=== PATIENT | female | born 1945 | race Caucasian/White ===

== ENCOUNTER 2017-05-03 12:33 | Inpatient (IN) | payer MEDICARE, OTHER, SELFPAY ==
[2017-05-03 12:55] VITALS: BMI 43.9
[2017-05-03 12:57] VITALS: BMI 43.9
[2017-05-03 13:15] VITALS: BP 89/44; PULSE 93; RESP 18; TEMP 36.7; O2SAT 100
--- NOTE | 2017-05-03 14:18 | PCM.PN.HOSP ---
Subjective: Reason for consult: Medical management for nonhealing infected abdominal wall ulcer. History of present illness This is a 72-year-old female with history of incarcerated hernia with recurrent exploratory laparotomy and lysis of adhesion with ventral hernia repair resulting into nonhealing ulcer. Postoperative course was complicated with wound healing problems with seroma and wound infection. Wound culture of 04/07/2017 shows Proteus mirabilis. She has been residing in [facility] for last 30 days and was called for admission by Dr. Castellon for nonhealing wound. Patient further stated that she has been having low-grade temperature 99-101 Fahrenheit for last 3-4 days and was given 1 antibiotic on past Monday to which she is allergic to. Here, on the floor, she was seen by our wound nurse, Micaela and wound picture shows undermined deep subcutaneous ulcer with overhanging edge and tunnel and necrotic tissue. Her bowel movement is usually regular and she moves every day with sometimes diarrhea. Denies lower urinary tract symptoms. Vitals/I&O's: Vital Signs Temp Pulse Resp BP Pulse Ox 98.1 F 93 18 89/44 100 05/03/17 13:15 05/03/17 13:15 05/03/17 13:15 05/03/17 13:15 05/03/17 13:15 Oxygen Delivery Method Room Air Weight: 108.862 kg Body Mass Index (BMI) 43.9 General: Alert, Oriented x3, Cooperative HEENT: Atraumatic, PERRLA, EOMI, Normocephalic Neck: Supple, No JVD, Negative Carotid Bruits Lungs: No rhonchi, No wheeze, Diminished Cardiovascular: Regular rate, Regular Rhythm, Normal S1, Normal S2, No murmurs Abdomen: Bowel Sounds Present, Soft, Non Tender, Non-Distended Extremities: Capillary Refill Less than 3 Seconds, Edema Skin: Ulcer/ Wound - Deep subcutaneous wound with overhanging edge internal. Floor of the wound looks grayish picture with necrotic tissue. Musculoskeletal: Arthritic Changes, - - Uses walker for ambulation Neurological: Cranial nerves II-XII grossly intact, Neuro grossly intact Psych/Mental Status: Normal Affect, Appropriate Current Medications Acetaminophen (Tylenol) 325 mg PO Q4H PRN PRN Reason: PAIN Allopurinol (Zyloprim) 300 mg PO DAILY [facility] Atorvastatin Calcium (Lipitor) 10 mg PO QHS [facility] Calcium Carbonate (Tums) 200 mg PO Q6H PRN PRN Reason: INDIGESTION Chlorhexidine Gluconate (Peridex) 15 ml PO BID [facility] Docusate Sodium (Colace) 100 mg PO BID [facility] Enoxaparin Sodium (Lovenox) 40 mg SC DAILY@0600 [facility] Ferrous Sulfate (Ferrous Sulfate) 325 mg PO TIDCM [facility] Hydromorphone HCl (Dilaudid) 1 mg IV Q3H PRN PRN PRN Reason: SEVERE PAIN () Ertapenem 1 gm/ Sodium (Chloride) 60 mls @ 100 mls/hr IV Q24 [facility] Lactated Ringer's () 1,000 mls @ 60 mls/hr IV .[id number] [facility] Lisinopril (Zestril) 10 mg PO DAILY [facility] Metformin HCl (Glucophage) 500 mg PO BIDCM [facility] Mirtazapine (Remeron) 15 mg PO QHS [facility] Multivitamins/Minerals (Multivitamin With Minerals) 1 tablet PO DAILY [facility] Non-Formulary Medication (Calcium Carbonate/Vitamin D3 [Calcium 600-Vit D3 200 Tablet]) 1 each PO BID [facility] Non-Formulary Medication (Loperamide Hcl [Imodium A-D]) 2 mg PO Q8H PRN PRN Reason: Diarrhea Non-Formulary Medication (Ondansetron Hcl [Zofran]) 4 mg PO Q4H PRN PRN Reason: NAUSEA Non-Formulary Medication (Polyvinyl Alcohol [Artificial Tears]) 1 drop EACH EYE PRN PRN PRN Reason: Dry Eye Nutritional Formula (Manjit - [place] Flavor) 1 packet PO BIDCM [facility] Nutritional Formula (Lactose Free) (Glucerna Shake) 120 ml PO 4X/DAY [facility] Ondansetron HCl (Zofran) 4 mg IV Q6H PRN PRN PRN Reason: NAUSEA Oxycodone HCl (Oxyir) 10 mg PO Q4H PRN PRN PRN Reason: SEVERE PAIN () Pantoprazole Sodium (Protonix) 40 mg PO BID [facility] Promethazine HCl (Phenergan) 25 mg PO Q4H PRN PRN PRN Reason: NAUSEA/VOMITING Simethicone (Mylicon) 80 mg PO 4X/DAY PRN PRN Reason: Gas Assessment/Plan This is a 72-year-old female with history of incarcerated hernia with recurrent exploratory laparotomy and lysis of adhesion with ventral hernia repair resulting into nonhealing ulcer. Postoperative course was complicated with wound healing problems with seroma and wound infection. Wound culture of 04/07/2017 shows Proteus mirabilis. Patient further stated that she has been having low-grade temperature 99-101 Fahrenheit for last 3-4 days and was given 1 antibiotic on past Monday to which she is allergic to. Here, on the floor, she was seen by our wound nurse, Micaela and wound picture shows undermined deep subcutaneous ulcer with overhanging edge and tunnel and necrotic tissue. Her bowel movement is usually regular and she moves every day with sometimes diarrhea. Denies lower urinary tract symptoms. 1. Nonhealing deep subcutaneous wound over lower abdominal/pelvic wall: Patient is being admitted to the monitored bed. Patient had wound VAC today. Most rarely will be taken for surgery as per Dr. Castellon. Wound culture from 04/07/2017 shows Proteus mirabilis sensitive to levofloxacin and ertapenem but resistant to penicillin group of antibiotics. I think patient was treated with Levaquin in March 2017, therefore agree with the IV ertapenem as ordered by Dr. Castellon. ID consult for further opinion. Blood cultures ?2, UA with urine culture ordered. 2. 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 Accu-Chek before meals and at bedtime and cover with NovoLog sliding scale. On ferrous sulfate. Anemia workup ordered including reticulocyte panel, B12, folic acid and iron panel 2. Coronary artery disease, hypertension, dyslipidemia, GERD, diverticular disease, gout: Home medication reconciliation done. DVT prophylaxis: Lovenox 40 mg subcu daily and bilateral SCDs.
--- NOTE | 2017-05-03 14:41 | NURSING ---
wound photo: lower abdomen
--- NOTE | 2017-05-03 14:42 | PN_ITS ---
Subjective: Reason for consult: Medical management for nonhealing infected abdominal wall ulcer. History of present illness This is a 72-year-old female with history of incarcerated hernia with recurrent exploratory laparotomy and lysis of adhesion with ventral hernia repair resulting into nonhealing ulcer. Postoperative course was complicated with wound healing problems with seroma and wound infection. Wound culture of shows Proteus mirabilis. She has been residing in [facility] for last 30 days and was called for admission by Dr. Castellon for nonhealing wound. Patient further stated that she has been having low-grade temperature 99-101 Fahrenheit for last 3-4 days and was given 1 antibiotic on past Monday to which she is allergic to. Here, on the floor, she was seen by our wound nurse, Micaela and wound picture shows undermined deep subcutaneous ulcer with overhanging edge and tunnel and necrotic tissue. Her bowel movement is usually regular and she moves every day with sometimes diarrhea. Denies lower urinary tract symptoms. Vitals/I&O's: Vital Signs Temp Pulse Resp BP Pulse Ox 98.1 F 93 18 89/44 100 05/03/17 13:15 05/03/17 13:15 05/03/17 13:15 05/03/17 13:15 05/03/17 13:15 Oxygen Delivery Method Room Air Weight: 108.862 kg Body Mass Index (BMI) 43.9 General: Alert, Oriented x3, Cooperative HEENT: Atraumatic, PERRLA, EOMI, Normocephalic Neck: Supple, No JVD, Negative Carotid Bruits Lungs: No rhonchi, No wheeze, Diminished Cardiovascular: Regular rate, Regular Rhythm, Normal S1, Normal S2, No murmurs Abdomen: Bowel Sounds Present, Soft, Non Tender, Non-Distended Extremities: Capillary Refill Less than 3 Seconds, Edema Skin: Ulcer/ Wound - Deep subcutaneous wound with overhanging edge internal. Floor of the wound looks grayish picture with necrotic tissue. Musculoskeletal: Arthritic Changes, - - Uses walker for ambulation Neurological: Cranial nerves II-XII grossly intact, Neuro grossly intact Psych/Mental Status: Normal Affect, Appropriate Current Medications Acetaminophen (Tylenol) 325 mg PO Q4H PRN PRN Reason: PAIN Allopurinol (Zyloprim) 300 mg PO DAILY [facility] Atorvastatin Calcium (Lipitor) 10 mg PO QHS [facility] Calcium Carbonate (Tums) 200 mg PO Q6H PRN PRN Reason: INDIGESTION Chlorhexidine Gluconate (Peridex) 15 ml PO BID [facility] Docusate Sodium (Colace) 100 mg PO BID [facility] Enoxaparin Sodium (Lovenox) 40 mg SC DAILY@0600 [facility] Ferrous Sulfate (Ferrous Sulfate) 325 mg PO TIDCM [facility] Hydromorphone HCl (Dilaudid) 1 mg IV Q3H PRN PRN PRN Reason: SEVERE PAIN () Ertapenem 1 gm/ Sodium (Chloride) 60 mls @ 100 mls/hr IV Q24 [facility] Lactated Ringer's () 1,000 mls @ 60 mls/hr IV .[id number] [facility] Lisinopril (Zestril) 10 mg PO DAILY [facility] Metformin HCl (Glucophage) 500 mg PO BIDCM [facility] Mirtazapine (Remeron) 15 mg PO QHS [facility] Multivitamins/Minerals (Multivitamin With Minerals) 1 tablet PO DAILY [facility] Non-Formulary Medication (Calcium Carbonate/Vitamin D3 [Calcium 600-Vit D3 200 Tablet]) 1 each PO BID [facility] Non-Formulary Medication (Loperamide Hcl [Imodium A-D]) 2 mg PO Q8H PRN PRN Reason: Diarrhea Non-Formulary Medication (Ondansetron Hcl [Zofran]) 4 mg PO Q4H PRN PRN Reason: NAUSEA Non-Formulary Medication (Polyvinyl Alcohol [Artificial Tears]) 1 drop EACH EYE PRN PRN PRN Reason: Dry Eye Nutritional Formula (Manjit - [place] Flavor) 1 packet PO BIDCM [facility] Nutritional Formula (Lactose Free) (Glucerna Shake) 120 ml PO 4X/DAY [facility] Ondansetron HCl (Zofran) 4 mg IV Q6H PRN PRN PRN Reason: NAUSEA Oxycodone HCl (Oxyir) 10 mg PO Q4H PRN PRN PRN Reason: SEVERE PAIN () Pantoprazole Sodium (Protonix) 40 mg PO BID [facility] Promethazine HCl (Phenergan) 25 mg PO Q4H PRN PRN PRN Reason: NAUSEA/VOMITING Simethicone (Mylicon) 80 mg PO 4X/DAY PRN PRN Reason: Gas Assessment/Plan This is a 72-year-old female with history of incarcerated hernia with recurrent exploratory laparotomy and lysis of adhesion with ventral hernia repair resulting into nonhealing ulcer. Postoperative course was complicated with wound healing problems with seroma and wound infection. Wound culture of shows Proteus mirabilis. Patient further stated that she has been having low-grade temperature 99-101 Fahrenheit for last 3-4 days and was given 1 antibiotic on past Monday to which she is allergic to. Here, on the floor, she was seen by our wound nurse, Micaela and wound picture shows undermined deep subcutaneous ulcer with overhanging edge and tunnel and necrotic tissue. Her bowel movement is usually regular and she moves every day with sometimes diarrhea. Denies lower urinary tract symptoms. 1. Nonhealing deep subcutaneous wound over lower abdominal/pelvic wall: Patient is being admitted to the monitored bed. Patient had wound VAC today. Most rarely will be taken for surgery as per Dr. Castellon. Wound culture from 04/07 shows Proteus mirabilis sensitive to levofloxacin and ertapenem but resistant to penicillin group of antibiotics. I think patient was treated with Levaquin in March 2017, therefore agree with the IV ertapenem as ordered by Dr. Castellon. ID consult for further opinion. Blood cultures ?2, UA with urine culture ordered. 2. 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 Accu-Chek before meals and at bedtime and cover with NovoLog sliding scale. On ferrous sulfate. Anemia workup ordered including reticulocyte panel, B12, folic acid and iron panel 2. Coronary artery disease, hypertension, dyslipidemia, GERD, diverticular disease, gout: Home medication reconciliation done. DVT prophylaxis: Lovenox 40 mg subcu daily and bilateral SCDs.
--- NOTE | 2017-05-03 14:42 | NURSING ---
called and discussed patient with Dr Castellon. this nurse had not taken cultures prior to placing the wound VAC. Did discuss the odor and the appearance of the tissues. both this nurse and Dr Castellon agree that the VAC can be placed on hold until further debridement is completed. Received orders for Dakins solution moistened kerlix dressings BID and prn. BIMAL Abrams will obtain and send cultures when the Dakins solution comes un from pharmacy and the VAC dressing is then removed.
[2017-05-03 15:15] VITALS: BP 136/56; PULSE 85; RESP 18; TEMP 36.7; O2SAT 100
[2017-05-03] MEDS: Lactated Ringers 1,000 ML 60 ML IV (16:49)
[2017-05-03] MEDS: CLARIFY ORDER NOTE (16:50)
[2017-05-03 16:51] LABS: Absolute Lymphocyte Count 0.84 X10^3/ul (0.83-4.51); Absolute Neutrophil Count 3.8 X10^3/uL (2.0-7.7); Basophil# 0.01 X10^3/uL; Basophil% 0.2 % (0-1); Eosinophil# 0.34 X10^3/uL; Eosinophils% 6.1 % (0-5); Hematocrit 28.1 % (37-47); Hemoglobin 8.8 g/dl (12.0-15.0); Lymphocyte # 0.84 X10^3/ul (4.0); Lymphocyte % 15.2 % (19-41); Mean Corp Hgb Conc 31.3 g/gl (32-36); Mean Corpuscular Hgb 24.8 pg (27.0-32.0); Mean Corpuscular Volume 79.2 fL (81-99); Mean Platelet Vol. 11.2 fl (6.2-12.0); Neutrophil # 3.84 X10^3/uL (2.7-7.7); Neutrophil % 69.3 % (47-70); Platelet Count 251 K/mm3 (150-450); RBC Distribution Width CV 18.4 % (11.6-14.6); RBC Distribution Width SD 51.3 fl (35.1-43.9); Red Blood Count 3.55 M/mm3 (4.2-5.4); White Blood Count 5.5 K/mm3 (4.4-11.0)
[2017-05-03] MEDS: Ferrous Sulfate 325 MG Tablet PO (16:51)
[2017-05-03] MEDS: Calcium Carb/Vitamin D 1 TABLET Tablet PO (16:51)
[2017-05-03 16:53] LABS: POSITIVE COUNT NO; POSITIVE DIFFERENTIAL NO; POSITIVE MORPHOLOGY NO
[2017-05-03 17:08] LABS: ALB/GLOB Ratio 0.6 RATIO (0.9-2.4); AST(SGOT) 11 U/L (15-37); Alanine Aminotransfer ALT/SGPT 11 U/L (12-78); Albumin, Serum 2.3 g/dL (3.4-5.0); Alkaline Phosphatase 120 U/L (45-117); Anion Gap 8 (5-15); BUN 18 mg/dL (7-18); BUN/Creat Ratio 20.4 RATIO (10-20); Calcium,Total 8.6 mg/dL (8.5-10.1); Chloride 105 mmol/L (98-107); Creatinine, Serum 0.88 mg/dL (0.55-1.02); EST Glomerular Filtration Rate 67 mL/min (>60); Est Glom Filt Rate - Afr Amer 81 mL/min (>60); Estimated Creatinine Clearance 45.03 ml/min; Globulin 3.9 g/dL (2.2-4.2); Glucose 126 mg/dL (70-110); Potassium 4.2 mmol/L (3.5-5.1); Prealbumin 8.1 mg/dL (20.0-40.0); Protein, Total 6.2 g/dL (6.4-8.2); Sodium Level 138 mmol/L (136-145)
[2017-05-03 17:10] LABS: Bedside Glucose 129 mg/dL (70-110)
[2017-05-03 17:52] LABS: Erythrocyte Sedimentation Rate 90 mm/hr (0-30)
[2017-05-03 20:24] VITALS: BP 119/54; PULSE 96; RESP 16; TEMP 37.4; O2SAT 98
[2017-05-03] MEDS: oxyCODONE 5 MG Tablet 10 MG PO (20:26)
[2017-05-03] MEDS: Ondansetron 4 MG/2 ML Vial IV (20:26)
[2017-05-03 20:33] VITALS: PULSE 96; RESP 16; O2SAT 98
[2017-05-03] MEDS: Docusate Sodium 100 MG Capsule PO (20:44)
[2017-05-03] MEDS: Atorvastatin Calcium 10 MG Tablet PO (20:44)
[2017-05-03] MEDS: Pantoprazole Sodium 40 MG Tablet PO (20:45)
[2017-05-03] MEDS: Mirtazapine 15 MG Tablet PO (20:46)
[2017-05-03] MEDS: Chlorhexidine 480 ML 15 ML PO (20:49)
[2017-05-03] MEDS: Glucerna Shake 120 ML LIQUID PO (20:50)
[2017-05-03 22:31] LABS: Bedside Glucose 126 mg/dL (70-110)
[2017-05-04] VITALS (12 sets, daily range): BP systolic 105–129; BP diastolic 45–78; PULSE 74–101; RESP 16–24; TEMP 36.2–37.7; O2SAT 95–100
[2017-05-04] MEDS: oxyCODONE 5 MG Tablet 10 MG PO (02:40)
[2017-05-04 06:15] LABS: Immature Platelet Fraction 2.6 % (1.0-7.9); RET-HE 23.3 pg (30-35); Reticulocyte Count 1.01 % (0.5-1.5)
[2017-05-04] MEDS: Enoxaparin 40 MG/0.4 ML Syringe SC (06:34)
[2017-05-04 06:46] LABS: Bedside Glucose 101 mg/dL (70-110)
[2017-05-04 06:51] LABS: Cholesterol 62 mg/dL (200); Ferritin 92 ng/mL (8-252); High Density Lipoprotein 20 mg/dL; Iron 16 ug/dL (50-170); Iron Binding Capacity,Total 150 ug/dL (250-450); PERCENT IRON SATURATION 10.7 % (15.0-55.0); Triglycerides 128 mg/dL; Very Low Density Lipoprotein 26 mg/dL (5-40)
[2017-05-04 08:27] LABS: Hemoglobin A1c 5.7 % (4.2-6.3)
[2017-05-04] MEDS: Ondansetron ODT 4 MG Tablet PO (08:35)
[2017-05-04] MEDS: Ferrous Sulfate 325 MG Tablet PO ×3 (08:35→18:10)
[2017-05-04] MEDS: Allopurinol 300 MG Tablet PO (08:36)
[2017-05-04] MEDS: Calcium Carb/Vitamin D 1 TABLET Tablet PO ×2 (08:36→18:11)
[2017-05-04] MEDS: Multivitamins,Ther W-Minerals Tablet 1 TABLET PO (08:36)
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
--- NOTE | 2017-05-04 09:36 | CON.PCM_ITS ---
Reason for Consult: Chronic abdominal wound with concern of infection History of Present Illness: The patient is a 72 year old F [] This is a 72-year-old white female history of obesity, diabetes mellitus, abdominal hernia repair done roughly [address] Ramesh and more recently had further abdominal surgery with lysis of adhesions and removal of mesh in mid February of this year. Shortly after the more recent abdominal surgery she developed a nonhealing wound that has progressed. She is currently an extended care facility and was seen at the wound care center recently. Patient was placed on levofloxacin but was unable to tolerate the medication. She states low-grade fevers mainly in the evening. She was subsequently admitted because of the progression of her abdominal wound concern of infection of the abdominal wound and further management by general surgery and infectious diseases. Patient was placed on meropenem. She denies any cardiopulmonary distress no headaches or any focal neurological symptoms she is otherwise hemodynamically stable. Laboratory studies reviewed she does have significant anemia. Her renal function is intact and her blood sugars are well controlled. 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 ( Chronic) nonhealing infected ulcer abdominal wall L98.492 Allergies/Adverse Reactions: Allergies Cephalosporins Allergy (Verified 05/02/17 22:52) Other clotrimazole Allergy (Verified 05/02/17 22:55) Other metoclopramide [From Reglan] Allergy (Verified 05/02/17 22:52) Other Penicillins Allergy (Verified 05/02/17 22:51) Other prednisolone Allergy (Verified 05/02/17 22:54) Other promethazine [From Phenergan] Allergy (Verified 05/02/17 22:53) Other Tetracyclines Allergy (Verified 05/02/17 22:54) Other Home Medications: Ambulatory Orders Medication Instructions Recorded Acetaminophen [Tylenol] 650 mg PO Q4H PRN 04/17/17 Allopurinol [Zyloprim] 300 mg PO DAILY 04/17/17 Aspirin 81 mg PO DAILY 04/17/17 Atorvastatin Calcium 10 mg PO QHS 04/17/17 Calcium Carbonate [Tums] 200 mg PO Q6H PRN 04/17/17 Calcium Carbonate/Vitamin D3 1 each PO BID 10/09/17 [Calcium 600-Vit D3 200 Tablet] Chlorhexidine Gluconate [Peridex] 15 ml PO BID 04/17/17 Ferrous Sulfate 325 mg PO TIDCM 04/17/17 Hydrocodone/Acetaminophen [[place] 1 each PO Q6H PRN 04/17/17 5-325 Tablet] Ketoconazole [Nizoral] 1 applic TOPICAL BID 04/17/17 Lisinopril [Zestril] 10 mg PO DAILY 04/17/17 Loperamide HCl [Imodium A-D] 2 mg PO Q8H PRN 04/17/17 Mirtazapine [Remeron] 15 mg PO QHS 04/17/17 Multivitamins,Ther W-Minerals 1 tablet PO DAILY 04/17/17 [Multivitamin With Minerals] Ondansetron HCl [Zofran] 4 mg PO Q8H PRN 04/17/17 Polyvinyl Alcohol [Artificial 1 drop EACH EYE PRN PRN 04/17/17 Tears] SimETHICONE [Mylicon] 80 mg PO 4X/DAY PRN 04/17/17 Cetyl Alc/Stearyl Alc/Pg/Sls 1 applic TP BID 05/03/17 [Cetaphil Cream] Docusate Sodium [Colace] 100 mg PO BID 05/03/17 L.acidoph,Paracasei, B.lactis 1 each PO BID 05/03/17 [Probiotic] Metformin HCl [Glucophage] 500 mg PO BIDCM 05/03/17 Mupirocin [Bactroban] 1 applic TOPICAL TID 05/03/17 Omeprazole 20 mg PO DAILY 05/03/17 Sodium Chloride 1 gm PO 4X/DAY PRN PRN 05/03/17 Vital Signs Temp Pulse Resp BP Pulse Ox 98.9 F 101 16 113/45 98 05/04/17 02:20 05/04/17 02:41 05/04/17 02:20 05/04/17 02:20 05/04/17 02:20 Oxygen Delivery Method Room Air Weight: 108.862 kg Body Mass Index (BMI) 43.9 Laboratory Tests Past 24 Hrs 05/03/17 05/03/17 05/04/17 16:25 16:25 05:50 WBC 5.5 RBC 3.55 L Hgb 8.8 L Hct 28.1 L MCV 79.2 L MCH 24.8 L MCHC 31.3 L RDW 18.4 H RDW Differential 51.3 H Plt Count 251 MPV 11.2 Immature Gran % (Auto) 0.200 Neut % (Auto) 69.3 Lymph % (Auto) 15.2 L [place] % (Auto) 9.0 Eos % (Auto) 6.1 H Baso % (Auto) 0.2 Absolute Neuts (auto) 3.8 Absolute Lymphs (auto) 0.84 Total Counted Not Reportable Immature Plt Fraction ESR 90 H Retic Count Immature Retic Fraction Retic Hgb Equivalent Sodium 138 Potassium 4.2 Chloride 105 Carbon Dioxide 25.0 Anion Gap 8 BUN 18 Creatinine 0.88 Estim Creat Clear Calc 45.03 Est GFR (MDRD) Af Amer 81 Est GFR (MDRD) Non-Af 67 BUN/Creatinine Ratio 20.4 H Glucose 126 H Hemoglobin A1c Calcium 8.6 Iron 16 L TIBC 150 L Iron Saturation 10.7 L Ferritin 92 Total Bilirubin 0.40 AST 11 L ALT 11 L Alkaline Phosphatase 120 H C-React Prot Ext Range 94.40 H Total Protein 6.2 L Albumin 2.3 L Globulin 3.9 Albumin/Globulin Ratio 0.6 L Prealbumin 8.1 L Triglycerides 128 Cholesterol 62 LDL Cholesterol 16 VLDL Cholesterol 26 HDL Cholesterol 20 L Vitamin B12 Folate 17.40 05/04/17 05/04/17 05/04/17 05:50 05:50 05:50 WBC RBC Hgb Hct MCV MCH MCHC RDW RDW Differential Plt Count MPV Immature Gran % (Auto) Neut % (Auto) Lymph % (Auto) [place] % (Auto) Eos % (Auto) Baso % (Auto) Absolute Neuts (auto) Absolute Lymphs (auto) Total Counted Immature Plt Fraction 2.6 ESR Retic Count 1.01 Immature Retic Fraction 10.20 Retic Hgb Equivalent 23.3 L Sodium Potassium Chloride Carbon Dioxide Anion Gap BUN Creatinine Estim Creat Clear Calc Est GFR (MDRD) Af Amer Est GFR (MDRD) Non-Af BUN/Creatinine Ratio Glucose Hemoglobin A1c 5.7 Calcium Iron TIBC Iron Saturation Ferritin Total Bilirubin AST ALT Alkaline Phosphatase C-React Prot Ext Range Total Protein Albumin Globulin Albumin/Globulin Ratio Prealbumin Triglycerides Cholesterol LDL Cholesterol VLDL Cholesterol HDL Cholesterol Vitamin B12 Pending Folate - Other Studies Radiology: [] Other Studies: [] Route of nutrition/ use of supplements: [] Nutritional Intake: [] IV Site: [] [place] Catheter: [] Alert and oriented ?3 does not appear toxic. She is anxious but in no acute distress lungs are clear heart exam S1-S2 abdomen is obese but soft I did take down the dressing and the packing of the abdominal wound it is a large deep abdominal wound with some areas of necrotic tissue around 3:00 in the wound. Laboratory studies reviewed. - Assessment/Plan Antibiotics: [] Assessment/Plan: [] 72-year-old white female with history of obesity and abdominal hernia repair with recent surgery roughly 2 months ago complicated by wound dehiscence and a chronic nonhealing wound in the abdominal area with concern of bacterial superinfection. At this point we will continue meropenem and continue local wound care. Patient states to me that she may be going back to surgery tomorrow for debridement of the wound.
[2017-05-04] MEDS: Lactated Ringers 1,000 ML 60 ML IV (09:37)
--- NOTE | 2017-05-04 09:40 | PCM.PN.HOSP ---
<Natalia Chandler Phoebe - Last Filed: 05/04/17 09:40> Patient Problems: Active and Suspected Problems Cellulitis of abdominal wall (Acute) L03.311 Subjective: Patient is 72-year-old female who presented with abdominal wound since late February, has progressed in size/severity. She does have a history of type 2 diabetes mellitus, obesity, and a hernia repair with lysis of adhesions and mesh removal mid-February. She was recently placed in a snf secondary to her wound care and had a wound VAC on at that time. She complains of low-grade fevers since coming to the hospital, mainly in the evening. She denies any abdominal pain except with palpation to the left quadrants. She does have some nausea, no emesis. Denies any dizziness, shortness of breath, or chest pain. She has been seen by Dr. Castellon, who she states plans to perform surgery tomorrow and open up her wound possibly. The wound has been cultured on 05/03, results are pending. Infectious disease has been consulted. She is currently on meropenem. Complains of right lateral rib pain from injury. Vitals/I&O's: Vital Signs Temp Pulse Resp BP Pulse Ox 98.9 F 101 16 113/45 98 05/04/17 02:20 05/04/17 02:41 05/04/17 02:20 05/04/17 02:20 05/04/17 02:20 Oxygen Delivery Method Room Air Weight: 108.862 kg Body Mass Index (BMI) 43.9 Intake and Output for Last 24 Hours 05/02/17 05/03/17 05/04/17 23:59 23:59 23:59 Intake Total 475 1278 Output Total 350 Balance 475 928 General: Alert, Oriented x3, Cooperative, No apparent distress, - - tearful. HEENT: Atraumatic, Normocephalic Oral: No Gingival or Mucosal Lesions/ Ulcerations, Dry Mucosa Neck: Supple, No JVD, No Nodes, Trachea Midline Lungs: Clear to auscultation, Diminished Cardiovascular: Regular rate, Regular Rhythm, Normal S1, Normal S2 Abdomen: Bowel Sounds Present, Soft, Passing Flatus, Obese, Tender - Left quadrant by wound Extremities: No cyanosis, No edema, No Calf Tenderness Skin: No rashes, Ulcer/ Wound - Large mid lower abdominal wound with tunneling of proximal abdomen, packing removed, foul odor. No bleeding. Musculoskeletal: No Tenderness to Palpation of Joints or Extremities Lymphatic: No Cervical, Supraclavicular, or Inguinal Adenopathy Neurological: Cranial nerves II-XII grossly intact, Deep Tendon Reflexes 2+/4 and Symmetrical, Neuro grossly intact Psych/Mental Status: Anxious, - - Cooperative, pleasant, somewhat tearful Laboratory Results 05/03/17 16:25: WBC 5.5, RBC 3.55 L, Hgb 8.8 L, Hct 28.1 L, MCV 79.2 L, MCH 24.8 L, MCHC 31.3 L, RDW 18.4 H, RDW Differential 51.3 H, Plt Count 251, MPV 11.2, Immature Gran % (Auto) 0.200, Neut % (Auto) 69.3, Lymph % (Auto) 15.2 L, [place] % (Auto) 9.0, Eos % (Auto) 6.1 H, Baso % (Auto) 0.2, Absolute Neuts (auto) 3.8, Absolute Lymphs (auto) 0.84, Total Counted Not Reportable, ESR 90 H 05/03/17 16:25: Sodium 138, Potassium 4.2, Chloride 105, Carbon Dioxide 25.0, Anion Gap 8, BUN 18, Creatinine 0.88, Estim Creat Clear Calc 45.03, Est GFR (MDRD) Af Amer 81, Est GFR (MDRD) Non-Af 67, BUN/Creatinine Ratio 20.4 H, Glucose 126 H, Calcium 8.6, Total Bilirubin 0.40, AST 11 L, ALT 11 L, Alkaline Phosphatase 120 H, C-React Prot Ext Range 94.40 H, Total Protein 6.2 L, Albumin 2.3 L, Globulin 3.9, Albumin/Globulin Ratio 0.6 L, Prealbumin 8.1 L 05/03/17 17:03: POC Glucose 129 H 05/03/17 21:52: POC Glucose 126 H 05/04/17 05:50: Iron 16 L, TIBC 150 L, Iron Saturation 10.7 L, Ferritin 92, Triglycerides 128, Cholesterol 62, LDL Cholesterol 16, VLDL Cholesterol 26, HDL Cholesterol 20 L, Folate 17.40 05/04/17 05:50: Hemoglobin A1c 5.7 05/04/17 05:50: Vitamin B12 Pending 05/04/17 05:50: Immature Plt Fraction 2.6, Retic Count 1.01, Immature Retic Fraction 10.20, Retic Hgb Equivalent 23.3 L 05/04/17 06:37: POC Glucose 101 Current Medications Acetaminophen (Tylenol) 325 mg PO Q4H PRN PRN Reason: PAIN Allopurinol (Zyloprim) 300 mg PO DAILYCM [facility] Last Admin: 05/04/17 08:36 Dose: 300 mg Artificial Tears (Tears Naturale, Artificial Tears) 1 drop EACH EYE DAILY PRN Atorvastatin Calcium (Lipitor) 10 mg PO QHS [facility] Last Admin: 05/03/17 20:44 Dose: 10 mg Calcium/Vitamin D (Os-Jonathan 500mg + D) [facility] Last Admin: 05/04/17 08:36 Dose: 1 tablet Chlorhexidine Gluconate (Peridex) 15 ml PO BID [facility] Last Admin: 05/03/17 20:49 Dose: 15 ml Dextrose (D50w Syringe) 0 gm IV X1 PRN; Protocol PRN Reason: Hypoglycemia Docusate Sodium (Colace) 100 mg PO BID [facility] Last Admin: 05/03/17 20:44 Dose: 100 mg Enoxaparin Sodium (Lovenox) 40 mg SC DAILY@0600 [facility] Last Admin: 05/04/17 06:34 Dose: 40 mg Ferrous Sulfate (Ferrous Sulfate) 325 mg PO TIDCM [facility] Last Admin: 05/04/17 08:35 Dose: 325 mg Glucagon () 1 mg IM .X1 PRN PRN Reason: Hypoglycemia Hydromorphone HCl (Dilaudid) 1 mg IV Q3H PRN PRN PRN Reason: SEVERE PAIN (6-10/10) Lactated Ringer's () 1,000 mls @ 60 mls/hr IV .[id number] [facility] Last Admin: 05/04/17 09:37 Dose: 60 mls/hr Meropenem 500 mg/ Sodium (Chloride) 60 mls @ 100 mls/hr IV Q8 [facility] Insulin Aspart (Novolog Flexpen (Bkc)) 0 units SC ACHS [facility] PRN Reason: Protocol Last Admin: 05/04/17 06:39 Dose: Not Given Lisinopril (Zestril) 10 mg PO DAILY [facility] Loperamide HCl (Imodium) 2 mg PO Q8H PRN PRN Reason: Diarrhea Metformin [facility] (Glucophage) [facility] Last Admin: 05/04/17 08:35 Dose: 500 mg Mirtazapine (Remeron) 15 mg PO QHS [facility] Last Admin: 05/03/17 20:46 Dose: 15 mg Multivitamins/Minerals (Multivitamin With Minerals) 1 tablet [facility] Last Admin: 05/04/17 08:36 Dose: 1 tablet Nutritional Formula (Manjit - [place] Flavor) 1 packet PO [facility] Last Admin: 05/04/17 08:36 Dose: Not Given Nutritional Formula (Lactose Free) (Glucerna Shake) 120 ml PO 4X/DAY [facility] Last Admin: 05/03/17 20:50 Dose: 120 ml Ondansetron HCl (Zofran) 4 mg IV Q6H PRN PRN PRN Reason: NAUSEA Last Admin: 05/03/17 20:26 Dose: 4 mg Ondansetron HCl (Zofran Odt) 4 mg PO Q4H PRN PRN Reason: NAUSEA Last Admin: 05/04/17 08:35 Dose: 4 mg Oxycodone HCl (Oxyir) 10 mg PO Q4H PRN PRN PRN Reason: SEVERE PAIN (6-10/10) Last Admin: 05/04/17 02:40 Dose: 10 mg Pantoprazole Sodium (Protonix) 40 mg PO BID [facility] Last Admin: 05/03/17 20:45 Dose: 40 mg Simethicone (Mylicon) 80 mg PO 4X/DAY PRN PRN Reason: Gas Sodium Chloride () 5 - 30 ml IV UD PRN PRN Reason: SALINE FLUSH Sodium Hypochlorite (Dakins Solution 0.25% (1/2 Strength)) 1 applic TOPICAL BID [facility] PRN Reason: Protocol Last Admin: 05/03/17 16:52 Dose: 1 applicatio Assessment/Plan Active and Suspected Problems Cellulitis of abdominal wall (Acute) L03.311 Patient is 72-year-old female admitted with nonhealing abdominal wound s/p incarcerated hernia with exploratory laparotomy and lysis of adhesions with removal of mesh in mid February. Developed a seroma, subsequent wound infection, wound culture 04/07/17 showed Proteus mirabilis. 1. Nonhealing deep subcutaneous wound lower/mid abdominal/pelvic wall Wound VAC was removed secondary to no drainage. Likely will go to surgery on 05/[address] Castellon. Wound culture 04/07 showed Proteus mirabilis, being treated with ertapenem per Dr. Castellon. Has allergies to cephalosporins, penicillins, tetracyclines. ID has been consulted, await recommendations. It does not appear blood cultures were performed, these will be ordered. Albumin 2.3. CRP 94. Dilaudid and OxyIR for pain. Will order rib x-ray for trauma/pain. T high 99.4?F 05/03 evening. Tylenol for fevers/pain. On room air, vitals otherwise stable. Manjit for nutrition, consult nutrition/dietitian. 2. Type 2 diabetes mellitus A1c 5.7. On Glucophage and sliding scale NovoLog. Follow Accu-Cheks, adjust insulin as necessary. Will need good blood sugar control for wound healing. 3. Chronic iron deficiency anemia/anemia of chronic disease Stable. On ferrous sulfate, anemia workup ordered. Hemoglobin is 8.8. Patient is scheduled for surgery on 05/05, will repeat CBC in a.m. 4. CAD 5. Hypertension Controlled. Continue lisinopril. Normal renal function. 6. Dyslipidemia Continue statin as at home. 7. GERD 8. Diverticulosis No indication of diverticulitis at this time. 9. Gout 10. DVT prophylaxis Daniel, SCDs <Unruly Gómez E - Last Filed: 05/04/17 12:19> Vitals/I&O's: Vital Signs Temp Pulse Resp BP Pulse Ox 97.2 F 86 18 127/78 98 05/04/17 09:30 05/04/17 09:30 05/04/17 09:30 05/04/17 09:30 05/04/17 09:30 Oxygen Delivery Method Room Air Weight: 239 lb 15.994 oz Body Mass Index (BMI) 43.9 Intake and Output for Last 24 Hours 05/02/17 05/03/17 05/04/17 23:59 23:59 23:59 Intake Total 475 1278 Output Total 350 Balance 475 928 Lungs: No rhonchi, No wheeze, No rales Microbiology Past 72 Hours 05/03/17 17:15 Wound - Aerobic & Anaerobic Swabs Gram Stain - Final Laboratory Results 05/03/17 16:25: WBC 5.5, RBC 3.55 L, Hgb 8.8 L, Hct 28.1 L, MCV 79.2 L, MCH 24.8 L, MCHC 31.3 L, RDW 18.4 H, RDW Differential 51.3 H, Plt Count 251, MPV 11.2, Immature Gran % (Auto) 0.200, Neut % (Auto) 69.3, Lymph % (Auto) 15.2 L, [place] % (Auto) 9.0, Eos % (Auto) 6.1 H, Baso % (Auto) 0.2, Absolute Neuts (auto) 3.8, Absolute Lymphs (auto) 0.84, Total Counted Not Reportable, ESR 90 H 05/03/17 16:25: Sodium 138, Potassium 4.2, Chloride 105, Carbon Dioxide 25.0, Anion Gap 8, BUN 18, Creatinine 0.88, Estim Creat Clear Calc 45.03, Est GFR (MDRD) Af Amer 81, Est GFR (MDRD) Non-Af 67, BUN/Creatinine Ratio 20.4 H, Glucose 126 H, Calcium 8.6, Total Bilirubin 0.40, AST 11 L, ALT 11 L, Alkaline Phosphatase 120 H, C-React Prot Ext Range 94.40 H, Total Protein 6.2 L, Albumin 2.3 L, Globulin 3.9, Albumin/Globulin Ratio 0.6 L, Prealbumin 8.1 L 05/03/17 17:03: POC Glucose 129 H 05/03/17 21:52: POC Glucose 126 H 05/04/17 05:50: Iron 16 L, TIBC 150 L, Iron Saturation 10.7 L, Ferritin 92, Triglycerides 128, Cholesterol 62, LDL Cholesterol 16, VLDL Cholesterol 26, HDL Cholesterol 20 L, Folate 17.40 05/04/17 05:50: Hemoglobin A1c 5.7 05/04/17 05:50: Vitamin B12 Pending 05/04/17 05:50: Immature Plt Fraction 2.6, Retic Count 1.01, Immature Retic Fraction 10.20, Retic Hgb Equivalent 23.3 L 05/04/17 06:37: POC Glucose 101 05/04/17 11:28: POC Glucose 123 H 05/04/17 11:40: Blood Type Pending, Antibody Screen Pending, Crossmatch See Detail Current Medications Acetaminophen (Tylenol) 325 mg PO Q4H PRN PRN Reason: PAIN Allopurinol (Zyloprim) [facility] Last Admin: 05/04/17 08:36 Dose: 300 mg Artificial Tears (Tears Naturale, Artificial Tears) 1 drop EACH EYE DAILY PRN Atorvastatin Calcium (Lipitor) 10 mg PO QHS [facility] Last Admin: 05/03/17 20:44 Dose: 10 mg Calcium/Vitamin D (Os-Jonathan 500mg + D) 1 tablet [facility] Last Admin: 05/04/17 08:36 Dose: 1 tablet Chlorhexidine Gluconate (Peridex) 15 ml PO BID [facility] Last Admin: 05/03/17 20:49 Dose: 15 ml Dextrose (D50w Syringe) 0 gm IV X1 PRN; Protocol PRN Reason: Hypoglycemia Docusate Sodium (Colace) 100 mg PO BID [facility] Last Admin: 05/03/17 20:44 Dose: 100 mg Enoxaparin Sodium (Lovenox) 40 mg SC DAILY@0600 [facility] Last Admin: 05/04/17 06:34 Dose: 40 mg Ferrous Sulfate (Ferrous Sulfate) 325 mg PO TIDCM [facility] Last Admin: 05/04/17 08:35 Dose: 325 mg Glucagon () 1 mg IM .X1 PRN PRN Reason: Hypoglycemia Hydromorphone HCl (Dilaudid) 1 mg IV Q3H PRN PRN PRN Reason: SEVERE PAIN (6-10/10) Lactated Ringer's () 1,000 mls @ 60 mls/hr IV .[id number] [facility] Last Admin: 05/04/17 09:37 Dose: 60 mls/hr Meropenem 500 mg/ Sodium (Chloride) 60 mls @ 100 mls/hr IV Q8 [facility] Insulin Aspart (Novolog Flexpen (Bkc)) 0 units SC ACHS [facility] PRN Reason: Protocol Last Admin: 05/04/17 11:42 Dose: Not Given Lisinopril (Zestril) 10 mg PO DAILY [facility] Loperamide HCl (Imodium) 2 mg PO Q8H PRN PRN Reason: Diarrhea Metformin HCl (Glucophage) 500 [facility] Last Admin: 05/04/17 08:35 Dose: 500 mg Mirtazapine (Remeron) 15 mg PO QHS [facility] Last Admin: 05/03/17 20:46 Dose: 15 mg Multivitamins/Minerals (Multivitamin With Minerals) 1 tablet PO DAILYCM [facility] Last Admin: 05/04/17 08:36 Dose: 1 tablet Nutritional Formula (Manjit - [place] Flavor) 1 packet PO BIDCM [facility] Last Admin: 05/04/17 08:36 Dose: Not Given Nutritional Formula (Lactose Free) (Glucerna Shake) 120 ml PO 4X/DAY [facility] Last Admin: 05/03/17 20:50 Dose: 120 ml Ondansetron HCl (Zofran) 4 mg IV Q6H PRN PRN PRN Reason: NAUSEA Last Admin: 05/03/17 20:26 Dose: 4 mg Ondansetron HCl (Zofran Odt) 4 mg PO Q4H PRN PRN Reason: NAUSEA Last Admin: 05/04/17 08:35 Dose: 4 mg Oxycodone HCl (Oxyir) 10 mg PO Q4H PRN PRN PRN Reason: SEVERE PAIN (6-10/10) Last Admin: 05/04/17 02:40 Dose: 10 mg Pantoprazole Sodium (Protonix) 40 mg PO BID [facility] Last Admin: 05/03/17 20:45 Dose: 40 mg Simethicone (Mylicon) 80 mg PO 4X/DAY PRN PRN Reason: Gas Sodium Chloride () 5 - 30 ml IV UD PRN PRN Reason: SALINE FLUSH Sodium Hypochlorite (Dakins Solution 0.25% (1/2 Strength)) 1 applic TOPICAL BID [facility] PRN Reason: Protocol Last Admin: 05/04/17 09:30 Dose: 1 applicatio Assessment/Plan Hospitalist note: I am seeing this patient in conjunction with Natalia Chandler. I independently seen and examined the patient. Progress note above and laboratory data reviewed and I agree with above treatment plan. Patient seen and examined. She denies any significant complaints except mild abdominal wall wound pain which seemed to be under control with current pain medication regimen. Denies fever chills. Vital signs are stable. - Physical Exam General: Alert, Oriented x3, Cooperative, No apparent distress. HEENT: Atraumatic, PERRLA, EOMI. Neck: Supple, No JVD, Negative Carotid Bruits, Trachea Midline, Thyroid Normal. Lungs: Clear to auscultation, diminished breath sounds bilateral, otherwise clear, No rhonchi, No wheeze, No rales. Cardiovascular: Regular rate, Regular Rhythm, Normal S1, Normal S2, PMI Normal. Abdomen: Bowel Sounds Present, Soft, Non Tender, Non-Distended, No Hepato-splenomegaly, obese, abdominal wall wound dressed. Extremities: No clubbing, No cyanosis, No edema Skin: No rashes, No breakdown Neurological: Neuro grossly intact Vital Signs are stable. Assessment and plan: Patient with nonhealing deep subcutaneous tissue infected wound of the lower abdominal wall, wound culture showed Proteus mirabilis that was reported, she is on IV meropenem. Vital signs are stable. Plastic surgery is managing, Dr. Castellon planning for surgery tomorrow. Other chronic medical problems are stable as above and plan to continue current medications. .
--- NOTE | 2017-05-04 10:03 | PN_ITS ---
<Natalia Chandler Phoebe - Last Filed: 05/04/17 09:40> Patient Problems: Active and Suspected Problems Cellulitis of abdominal wall (Acute) L03.311 Subjective: Patient is 72-year-old female who presented with abdominal wound since late February, has progressed in size/severity. She does have a history of type 2 diabetes mellitus, obesity, and a hernia repair with lysis of adhesions and mesh removal mid-February. She was recently placed in a group home secondary to her wound care and had a wound VAC on at that time. She complains of low- grade fevers since coming to the hospital, mainly in the evening. She denies any abdominal pain except with palpation to the left quadrants. She does have some nausea, no emesis. Denies any dizziness, shortness of breath, or chest pain. She has been seen by Dr. Castellon, who she states plans to perform surgery tomorrow and open up her wound possibly. The wound has been cultured on 05/03, results are pending. Infectious disease has been consulted. She is currently on meropenem. Complains of right lateral rib pain from injury. Vitals/I&O's: Vital Signs Temp Pulse Resp BP Pulse Ox 98.9 F 101 16 113/45 98 05/04/17 02:20 05/04/17 02:41 05/04/17 02:20 05/04/17 02:20 05/04/17 02:20 Oxygen Delivery Method Room Air Weight: 108.862 kg Body Mass Index (BMI) 43.9 Intake and Output for Last 24 Hours 05/02/17 05/03/17 05/04/17 23:59 23:59 23:59 Intake Total 475 1278 Output Total 350 Balance 475 928 General: Alert, Oriented x3, Cooperative, No apparent distress, - - tearful. HEENT: Atraumatic, Normocephalic Oral: No Gingival or Mucosal Lesions/ Ulcerations, Dry Mucosa Neck: Supple, No JVD, No Nodes, Trachea Midline Lungs: Clear to auscultation, Diminished Cardiovascular: Regular rate, Regular Rhythm, Normal S1, Normal S2 Abdomen: Bowel Sounds Present, Soft, Passing Flatus, Obese, Tender - Left quadrant by wound Extremities: No cyanosis, No edema, No Calf Tenderness Skin: No rashes, Ulcer/ Wound - Large mid lower abdominal wound with tunneling of proximal abdomen, packing removed, foul odor. No bleeding. Musculoskeletal: No Tenderness to Palpation of Joints or Extremities Lymphatic: No Cervical, Supraclavicular, or Inguinal Adenopathy Neurological: Cranial nerves II-XII grossly intact, Deep Tendon Reflexes 2+/4 and Symmetrical, Neuro grossly intact Psych/Mental Status: Anxious, - - Cooperative, pleasant, somewhat tearful Laboratory Results 05/03/17 16:25: WBC 5.5, RBC 3.55 L, Hgb 8.8 L, Hct 28.1 L, MCV 79.2 L, MCH 24.8 L, MCHC 31.3 L, RDW 18.4 H, RDW Differential 51.3 H, Plt Count 251, MPV 11.2, Immature Gran % (Auto) 0.200, Neut % (Auto) 69.3, Lymph % (Auto) 15.2 L, Cedar % (Auto) 9.0, Eos % (Auto) 6.1 H, Baso % (Auto) 0.2, Absolute Neuts (auto) 3.8, Absolute Lymphs (auto) 0.84, Total Counted Not Reportable, ESR 90 H 05/03/17 16:25: Sodium 138, Potassium 4.2, Chloride 105, Carbon Dioxide 25.0, Anion Gap 8, BUN 18, Creatinine 0.88, Estim Creat Clear Calc 45.03, Est GFR ( MDRD) Af Amer 81, Est GFR (MDRD) Non-Af 67, BUN/Creatinine Ratio 20.4 H, Glucose 126 H, Calcium 8.6, Total Bilirubin 0.40, AST 11 L, ALT 11 L, Alkaline Phosphatase 120 H, C-React Prot Ext Range 94.40 H, Total Protein 6.2 L, Albumin 2.3 L, Globulin 3.9, Albumin/Globulin Ratio 0.6 L, Prealbumin 8.1 L 05/03/17 17:03: POC Glucose 129 H 05/03/17 21:52: POC Glucose 126 H 05/04/17 05:50: Iron 16 L, TIBC 150 L, Iron Saturation 10.7 L, Ferritin 92, Triglycerides 128, Cholesterol 62, LDL Cholesterol 16, VLDL Cholesterol 26, HDL Cholesterol 20 L, Folate 17.40 05/04/17 05:50: Hemoglobin A1c 5.7 05/04/17 05:50: Vitamin B12 Pending 05/04/17 05:50: Immature Plt Fraction 2.6, Retic Count 1.01, Immature Retic Fraction 10.20, Retic Hgb Equivalent 23.3 L 05/04/17 06:37: POC Glucose 101 Current Medications Acetaminophen (Tylenol) 325 mg PO Q4H PRN PRN Reason: PAIN Allopurinol (Zyloprim) 300 mg PO DAILYCM [facility] Last Admin: 05/04/17 08:36 Dose: 300 mg Artificial Tears (Tears Naturale, Artificial Tears) 1 drop EACH EYE DAILY PRN Atorvastatin Calcium (Lipitor) 10 mg PO QHS [facility] Last Admin: 05/03/17 20:44 Dose: 10 mg Calcium/Vitamin D (Os-Jonathan 500mg + D) [facility] Last Admin: 05/04/17 08:36 Dose: 1 tablet Chlorhexidine Gluconate (Peridex) 15 ml PO BID [facility] Last Admin: 05/03/17 20:49 Dose: 15 ml Dextrose (D50w Syringe) 0 gm IV X1 PRN; Protocol PRN Reason: Hypoglycemia Docusate Sodium (Colace) 100 mg PO BID [facility] Last Admin: 05/03/17 20:44 Dose: 100 mg Enoxaparin Sodium (Lovenox) 40 mg SC DAILY@0600 [facility] Last Admin: 05/04/17 06:34 Dose: 40 mg Ferrous Sulfate (Ferrous Sulfate) 325 mg PO TIDCM [facility] Last Admin: 05/04/17 08:35 Dose: 325 mg Glucagon () 1 mg IM .X1 PRN PRN Reason: Hypoglycemia Hydromorphone HCl (Dilaudid) 1 mg IV Q3H PRN PRN PRN Reason: SEVERE PAIN (6-10/10) Lactated Ringer's () 1,000 mls @ 60 mls/hr IV .[id number] [facility] Last Admin: 05/04/17 09:37 Dose: 60 mls/hr Meropenem 500 mg/ Sodium (Chloride) 60 mls @ 100 mls/hr IV Q8 [facility] Insulin Aspart (Novolog Flexpen (Bkc)) 0 units SC ACHS [facility] PRN Reason: Protocol Last Admin: 05/04/17 06:39 Dose: Not Given Lisinopril (Zestril) 10 mg PO DAILY [facility] Loperamide HCl (Imodium) 2 mg PO Q8H PRN PRN Reason: Diarrhea Metformin [facility] (Glucophage) [facility] Last Admin: 05/04/17 08:35 Dose: 500 mg Mirtazapine (Remeron) 15 mg PO QHS [facility] Last Admin: 05/03/17 20:46 Dose: 15 mg Multivitamins/Minerals (Multivitamin With Minerals) [facility] Last Admin: 05/04/17 08:36 Dose: 1 tablet Nutritional Formula (Manjit - [place] Flavor) 1 [facility] Last Admin: 05/04/17 08:36 Dose: Not Given Nutritional Formula (Lactose Free) (Glucerna Shake) 120 ml PO 4X/DAY [facility] Last Admin: 05/03/17 20:50 Dose: 120 ml Ondansetron HCl (Zofran) 4 mg IV Q6H PRN PRN PRN Reason: NAUSEA Last Admin: 05/03/17 20:26 Dose: 4 mg Ondansetron HCl (Zofran Odt) 4 mg PO Q4H PRN PRN Reason: NAUSEA Last Admin: 05/04/17 08:35 Dose: 4 mg Oxycodone HCl (Oxyir) 10 mg PO Q4H PRN PRN PRN Reason: SEVERE PAIN (6-10/10) Last Admin: 05/04/17 02:40 Dose: 10 mg Pantoprazole Sodium (Protonix) 40 mg PO BID [facility] Last Admin: 05/03/17 20:45 Dose: 40 mg Simethicone (Mylicon) 80 mg PO 4X/DAY PRN PRN Reason: Gas Sodium Chloride () 5 - 30 ml IV UD PRN PRN Reason: SALINE FLUSH Sodium Hypochlorite (Dakins Solution 0.25% (1/2 Strength)) 1 applic TOPICAL BID [facility] PRN Reason: Protocol Last Admin: 05/03/17 16:52 Dose: 1 applicatio Assessment/Plan Active and Suspected Problems Cellulitis of abdominal wall (Acute) L03.311 Patient is 72-year-old female admitted with nonhealing abdominal wound s/p incarcerated hernia with exploratory laparotomy and lysis of adhesions with removal of mesh in mid February. Developed a seroma, subsequent wound infection, wound culture 04/07/17 showed Proteus mirabilis. 1. Nonhealing deep subcutaneous wound lower/mid abdominal/pelvic wall Wound VAC was removed secondary to no drainage. Likely will go to surgery on per Dr. Castellon. Wound culture 04/07 showed Proteus mirabilis, being treated with ertapenem per Dr. Castellon. Has allergies to cephalosporins, penicillins, tetracyclines. ID has been consulted, await recommendations. It does not appear blood cultures were performed, these will be ordered. Albumin 2.3. CRP 94. Dilaudid and OxyIR for pain. Will order rib x-ray for trauma/pain. T high 99.4?F 05/03 evening. Tylenol for fevers/pain. On room air, vitals otherwise stable. Manjit for nutrition, consult nutrition/dietitian. 2. Type 2 diabetes mellitus A1c 5.7. On Glucophage and sliding scale NovoLog. Follow Accu-Cheks, adjust insulin as necessary. Will need good blood sugar control for wound healing. 3. Chronic iron deficiency anemia/anemia of chronic disease Stable. On ferrous sulfate, anemia workup ordered. Hemoglobin is 8.8. Patient is scheduled for surgery on 05/05, will repeat CBC in a.m. 4. CAD 5. Hypertension Controlled. Continue lisinopril. Normal renal function. 6. Dyslipidemia Continue statin as at home. 7. GERD 8. Diverticulosis No indication of diverticulitis at this time. 9. Gout 10. DVT prophylaxis Daniel, SCDs <Unruly Gómez E - Last Filed: 05/04/17 12:19> Vitals/I&O's: Vital Signs Temp Pulse Resp BP Pulse Ox 97.2 F 86 18 127/78 98 05/04/17 09:30 05/04/17 09:30 05/04/17 09:30 05/04/17 09:30 05/04/17 09:30 Oxygen Delivery Method Room Air Weight: 239 lb 15.994 oz Body Mass Index (BMI) 43.9 Intake and Output for Last 24 Hours 05/02/17 05/03/17 05/04/17 23:59 23:59 23:59 Intake Total 475 1278 Output Total 350 Balance 475 928 Lungs: No rhonchi, No wheeze, No rales Microbiology Past 72 Hours 05/03/17 17:15 Wound - Aerobic & Anaerobic Swabs Gram Stain - Final Laboratory Results 05/03/17 16:25: WBC 5.5, RBC 3.55 L, Hgb 8.8 L, Hct 28.1 L, MCV 79.2 L, MCH 24.8 L, MCHC 31.3 L, RDW 18.4 H, RDW Differential 51.3 H, Plt Count 251, MPV 11.2, Immature Gran % (Auto) 0.200, Neut % (Auto) 69.3, Lymph % (Auto) 15.2 L, Cedar % (Auto) 9.0, Eos % (Auto) 6.1 H, Baso % (Auto) 0.2, Absolute Neuts (auto) 3.8, Absolute Lymphs (auto) 0.84, Total Counted Not Reportable, ESR 90 H 05/03/17 16:25: Sodium 138, Potassium 4.2, Chloride 105, Carbon Dioxide 25.0, Anion Gap 8, BUN 18, Creatinine 0.88, Estim Creat Clear Calc 45.03, Est GFR ( MDRD) Af Amer 81, Est GFR (MDRD) Non-Af 67, BUN/Creatinine Ratio 20.4 H, Glucose 126 H, Calcium 8.6, Total Bilirubin 0.40, AST 11 L, ALT 11 L, Alkaline Phosphatase 120 H, C-React Prot Ext Range 94.40 H, Total Protein 6.2 L, Albumin 2.3 L, Globulin 3.9, Albumin/Globulin Ratio 0.6 L, Prealbumin 8.1 L 05/03/17 17:03: POC Glucose 129 H 05/03/17 21:52: POC Glucose 126 H 05/04/17 05:50: Iron 16 L, TIBC 150 L, Iron Saturation 10.7 L, Ferritin 92, Triglycerides 128, Cholesterol 62, LDL Cholesterol 16, VLDL Cholesterol 26, HDL Cholesterol 20 L, Folate 17.40 05/04/17 05:50: Hemoglobin A1c 5.7 05/04/17 05:50: Vitamin B12 Pending 05/04/17 05:50: Immature Plt Fraction 2.6, Retic Count 1.01, Immature Retic Fraction 10.20, Retic Hgb Equivalent 23.3 L 05/04/17 06:37: POC Glucose 101 05/04/17 11:28: POC Glucose 123 H 05/04/17 11:40: Blood Type Pending, Antibody Screen Pending, Crossmatch See Detail Current Medications Acetaminophen (Tylenol) 325 mg PO Q4H PRN PRN Reason: PAIN Allopurinol (Zyloprim) [facility] Last Admin: 05/04/17 08:36 Dose: 300 mg Artificial Tears (Tears Naturale, Artificial Tears) 1 drop EACH EYE DAILY PRN Atorvastatin Calcium (Lipitor) 10 mg PO QHS [facility] Last Admin: 05/03/17 20:44 Dose: 10 mg Calcium/Vitamin D (Os-Jonathan 500mg + D) [facility] Last Admin: 05/04/17 08:36 Dose: 1 tablet Chlorhexidine Gluconate (Peridex) 15 ml PO BID [facility] Last Admin: 05/03/17 20:49 Dose: 15 ml Dextrose (D50w Syringe) 0 gm IV X1 PRN; Protocol PRN Reason: Hypoglycemia Docusate Sodium (Colace) 100 mg PO BID [facility] Last Admin: 05/03/17 20:44 Dose: 100 mg Enoxaparin Sodium (Lovenox) 40 mg SC DAILY@0600 [facility] Last Admin: 05/04/17 06:34 Dose: 40 mg Ferrous Sulfate (Ferrous Sulfate) 325 mg PO TIDCM [facility] Last Admin: 05/04/17 08:35 Dose: 325 mg Glucagon () 1 mg IM .X1 PRN PRN Reason: Hypoglycemia Hydromorphone HCl (Dilaudid) 1 mg IV Q3H PRN PRN PRN Reason: SEVERE PAIN (6-10/10) Lactated Ringer's () 1,000 mls @ 60 mls/hr IV .[id number] [facility] Last Admin: 05/04/17 09:37 Dose: 60 mls/hr Meropenem 500 mg/ Sodium (Chloride) 60 mls @ 100 mls/hr IV Q8 [facility] Insulin Aspart (Novolog Flexpen (Bkc)) 0 units SC ACHS [facility] PRN Reason: Protocol Last Admin: 05/04/17 11:42 Dose: Not Given Lisinopril (Zestril) 10 mg PO DAILY [facility] Loperamide HCl (Imodium) 2 mg PO Q8H PRN PRN Reason: Diarrhea Metformin HCl (Glucophage) [facility] Last Admin: 05/04/17 08:35 Dose: 500 mg Mirtazapine (Remeron) 15 mg PO QHS [facility] Last Admin: 05/03/17 20:46 Dose: 15 mg Multivitamins/Minerals (Multivitamin With Minerals) 1 tablet PO DAILYCM [facility] Last Admin: 05/04/17 08:36 Dose: 1 tablet Nutritional Formula (Manjit - [place] Flavor) 1 packet PO BIDCM [facility] Last Admin: 05/04/17 08:36 Dose: Not Given Nutritional Formula (Lactose Free) (Glucerna Shake) 120 ml PO 4X/DAY [facility] Last Admin: 05/03/17 20:50 Dose: 120 ml Ondansetron HCl (Zofran) 4 mg IV Q6H PRN PRN PRN Reason: NAUSEA Last Admin: 05/03/17 20:26 Dose: 4 mg Ondansetron HCl (Zofran Odt) 4 mg PO Q4H PRN PRN Reason: NAUSEA Last Admin: 05/04/17 08:35 Dose: 4 mg Oxycodone HCl (Oxyir) 10 mg PO Q4H PRN PRN PRN Reason: SEVERE PAIN (6-10/10) Last Admin: 05/04/17 02:40 Dose: 10 mg Pantoprazole Sodium (Protonix) 40 mg PO BID [facility] Last Admin: 05/03/17 20:45 Dose: 40 mg Simethicone (Mylicon) 80 mg PO 4X/DAY PRN PRN Reason: Gas Sodium Chloride () 5 - 30 ml IV UD PRN PRN Reason: SALINE FLUSH Sodium Hypochlorite (Dakins Solution 0.25% (1/2 Strength)) 1 applic TOPICAL BID [facility] PRN Reason: Protocol Last Admin: 05/04/17 09:30 Dose: 1 applicatio Assessment/Plan Hospitalist note: I am seeing this patient in conjunction with Natalia Chandler. I independently seen and examined the patient. Progress note above and laboratory data reviewed and I agree with above treatment plan. Patient seen and examined. She denies any significant complaints except mild abdominal wall wound pain which seemed to be under control with current pain medication regimen. Denies fever chills. Vital signs are stable. - Physical Exam General: Alert, Oriented x3, Cooperative, No apparent distress. HEENT: Atraumatic, PERRLA, EOMI. Neck: Supple, No JVD, Negative Carotid Bruits, Trachea Midline, Thyroid Normal. Lungs: Clear to auscultation, diminished breath sounds bilateral, otherwise clear, No rhonchi, No wheeze, No rales. Cardiovascular: Regular rate, Regular Rhythm, Normal S1, Normal S2, PMI Normal. Abdomen: Bowel Sounds Present, Soft, Non Tender, Non-Distended, No Hepato- splenomegaly, obese, abdominal wall wound dressed. Extremities: No clubbing, No cyanosis, No edema Skin: No rashes, No breakdown Neurological: Neuro grossly intact Vital Signs are stable. Assessment and plan: Patient with nonhealing deep subcutaneous tissue infected wound of the lower abdominal wall, wound culture showed Proteus mirabilis that was reported, she is on IV meropenem. Vital signs are stable. Plastic surgery is managing, Dr. Castellon planning for surgery tomorrow. Other chronic medical problems are stable as above and plan to continue current medications. .
--- NOTE | 2017-05-04 10:05 | RAD_ITS ---
STUDY: X-RAY - UNILATERAL RIBS ( RIGHT ) REASON FOR EXAM: Female, 72 years old. Right rib pain TECHNIQUE: Four view(s) of the ribs. COMPARISON: None. FINDINGS: Normal visualized ribs without a demonstrated fracture. There are coarse interstitial markings in the right lung. There is no blunting of the right costophrenic angle. A right arm PICC is present with the tip in the expected location of the mid SVC. Sternotomy wires are present. RAD/Ribs Unil 2V No CXR IMPRESSION: No significant abnormalities are seen in the right ribs. Electronically Signed: Vaishali Palacios MD at 17:55 EDT Tel Direct: [phone], Service support ,
--- NOTE | 2017-05-04 10:36 | PN.SURG_ITS ---
Patient Problems: Active and Suspected Problems Cellulitis of abdominal wall (Acute) L03.311 Subjective: Patient complains of abdominal wound pain. She states she also bumped her right side and her ribs hurt. Tolerating wound care with Dakin's solution and gauze. - Physical Exam General: Alert, Oriented x3 HEENT: PERRLA, EOMI Neck: Supple Lungs: Clear to auscultation Cardiovascular: Regular rate, Regular Rhythm Abdomen: Soft, Non-Distended, Tender - in the large ulcer with fat necrosis inferiorly. Less odor after starting the Dakin's solution with gauze. Extremities: No clubbing, No cyanosis, Edema - mild edema in lower extremities. Skin: Ulcer/ Wound - inferior abdominal wall ulcer shows fat necrosis with induration. Less odor after starting Dakin's solution with gauze. Musculoskeletal: Tenderness - over the right ribs. No step off deformities noted., - Neurological: Cranial nerves II-XII grossly intact Psych/Mental Status: Normal Affect, Appropriate Vital Signs Temp Pulse Resp BP Pulse Ox 98.9 F 101 16 113/45 98 05/04/17 02:20 05/04/17 02:41 05/04/17 02:20 05/04/17 02:20 05/04/17 02:20 Oxygen Delivery Method Room Air Weight: 108.862 kg Body Mass Index (BMI) 43.9 Intake and Output for Last 24 Hours 05/02/17 05/03/17 05/04/17 23:59 23:59 23:59 Intake Total 475 1278 Output Total 350 Balance 475 928 Laboratory Tests Past 24 Hrs 05/03/17 05/03/17 05/04/17 16:25 16:25 05:50 WBC 5.5 RBC 3.55 L Hgb 8.8 L Hct 28.1 L MCV 79.2 L MCH 24.8 L MCHC 31.3 L RDW 18.4 H RDW Differential 51.3 H Plt Count 251 MPV 11.2 Immature Gran % (Auto) 0.200 Neut % (Auto) 69.3 Lymph % (Auto) 15.2 L [place] % (Auto) 9.0 Eos % (Auto) 6.1 H Baso % (Auto) 0.2 Absolute Neuts (auto) 3.8 Absolute Lymphs (auto) 0.84 Total Counted Not Reportable Immature Plt Fraction ESR 90 H Retic Count Immature Retic Fraction Retic Hgb Equivalent Sodium 138 Potassium 4.2 Chloride 105 Carbon Dioxide 25.0 Anion Gap 8 BUN 18 Creatinine 0.88 Estim Creat Clear Calc 45.03 Est GFR (MDRD) Af Amer 81 Est GFR (MDRD) Non-Af 67 BUN/Creatinine Ratio 20.4 H Glucose 126 H Hemoglobin A1c Calcium 8.6 Iron 16 L TIBC 150 L Iron Saturation 10.7 L Ferritin 92 Total Bilirubin 0.40 AST 11 L ALT 11 L Alkaline Phosphatase 120 H C-React Prot Ext Range 94.40 H Total Protein 6.2 L Albumin 2.3 L Globulin 3.9 Albumin/Globulin Ratio 0.6 L Prealbumin 8.1 L Triglycerides 128 Cholesterol 62 LDL Cholesterol 16 VLDL Cholesterol 26 HDL Cholesterol 20 L Vitamin B12 Folate 17.40 05/04/17 05/04/17 05/04/17 05:50 05:50 05:50 WBC RBC Hgb Hct MCV MCH MCHC RDW RDW Differential Plt Count MPV Immature Gran % (Auto) Neut % (Auto) Lymph % (Auto) [place] % (Auto) Eos % (Auto) Baso % (Auto) Absolute Neuts (auto) Absolute Lymphs (auto) Total Counted Immature Plt Fraction 2.6 ESR Retic Count 1.01 Immature Retic Fraction 10.20 Retic Hgb Equivalent 23.3 L Sodium Potassium Chloride Carbon Dioxide Anion Gap BUN Creatinine Estim Creat Clear Calc Est GFR (MDRD) Af Amer Est GFR (MDRD) Non-Af BUN/Creatinine Ratio Glucose Hemoglobin A1c 5.7 Calcium Iron TIBC Iron Saturation Ferritin Total Bilirubin AST ALT Alkaline Phosphatase C-React Prot Ext Range Total Protein Albumin Globulin Albumin/Globulin Ratio Prealbumin Triglycerides Cholesterol LDL Cholesterol VLDL Cholesterol HDL Cholesterol Vitamin B12 Pending Folate POC Glucose 05/04/17 05/03/17 05/03/17 06:37 21:52 17:03 POC Glucose 101 126 H 129 H Diagnostic Data Ribs X-Ray 05/04/17 10:05 IMPRESSION: No significant abnormalities are seen in the right ribs. Electronically Signed: Vaishali Palacios MD at 17:55 EDT Tel Direct: [phone], Service support , Abdomen/Pelvis CT 05/04/17 10:40 IMPRESSION: 1. Large abdominal wall defect probably representing a large soft tissue ulceration with a collection of gas but without definite abscess. 2. Hepatomegaly and splenomegaly. 3. Bilateral basilar airspace consolidation and/or atelectasis. 4. Sequela of coronary artery vascular disease. Electronically Signed: Dai Mac MD at 14:15 EDT , Service support , Assessment/Plan Active and Suspected Problems Cellulitis of abdominal wall (Acute) L03.311 1. Nonhealing infected abdominal wall ulcer. 2. Infected prosthetic mesh abdominal wall. 3. Cellulitis abdominal wall. 4. Proteus mirabilis infection. 5. Diabetes mellitus. 6. Anemia of chronic disease 7. Right rib pain. Antibiotics have been changed to Meropenem. The Invanz has been stopped. CT Abdomen and Pelvis showed no evidence of recurrent hernia. No evidence of intra-abdominal pathology. Rib xray showed no fracture. The ulcer looks a little better with the Dakin's solution dressing changes. Appreciate Hospitalist and Infectious Diseases input. The large ulcer with undermining abdominal wall will not heal with operative debridement. Will go to the OR tomorrow. Will leave the ulcer open and proceed with postop care with the VAC. Post discharge, the patient [facility]. Prealbumin is very low at 8.1. Continue nutritional supplementation with protein to help the healing process. Operative cultures will be done. A positive culture may necessitate antibiotic modification. Any exposed infected prosthetic mesh will be removed. Hgb is low at 8.8. In anticipation of surgery tomorrow, will transfuse PRBC to improve oxygenation and thus improve healing. Patient was informed of the risks and complications of the procedure including alternatives to surgery. These were discussed with her personally. She voiced understanding and wishes to proceed.
--- NOTE | 2017-05-04 10:40 | CT_ITS ---
STUDY: CT ABDOMEN AND PELVIS WITH CONTRAST REASON FOR EXAM: Female, 72 years old. Abdominal wall ulceration after herniorrhaphy. RADIATION DOSAGE (If Supplied By Facility): CTDIvol = ( 18.95 ) mGy, DLP = ( 1017.53 ) mGycm TECHNIQUE: Transaxial images were obtained from the dome of the diaphragm to the symphysis pubis with oral contrast. 100 ml of Isovue 300 contrast was administered. Sagittal and coronal images were reconstructed. Individualized dose optimization techniques were used for this CT. COMPARISON: Prior comparable comparison studies are not available for review at this time. FINDINGS: There is bilateral basilar dependent and subsegmental atelectasis. Visualized heart appears to be mildly enlarged. Patient has an intracardiac pacemaker. There are vascular calcifications of the coronary arteries. There is hepatomegaly with diffuse hepatic enlargement. Maximum cephalocaudal dimension of the liver is 19.7 cm. There is a mild dilatation of intrahepatic biliary ducts possibly related previous obstruction. There is non-visualization of the gallbladder, which may be secondary to either contraction or a prior cholecystectomy. There is mild splenomegaly. There are multiple calcified splenic granulomas. There is diffuse atrophy of the pancreas. Normal bilateral adrenal glands. Normal right kidney. Normal left kidney. Normal visualized stomach. There is no evidence for dilated bowel, ascites or pneumoperitoneum. Small bowel has a grossly normal appearance. There are multiple colonic diverticula consistent with diverticulosis. The appendix is visualized and appears normal. Abdominal aorta is tortuous with mild atherosclerotic calcification. Normal inferior vena cava. There is borderline retroperitoneal lymphadenopathy with enlarged nodes no greater than 10mm in the short axis diameter. There is a small amount of gas in the urinary bladder. Has the patient had recent catheterization? There is absence of the uterus consistent with a prior hysterectomy. There is a large deficit within the soft tissues of the left paramedian abdominal wall apparently related to large ulceration and/or previous surgery. The patient has had a sternotomy. There is multilevel thoracic spondylosis. There is multilevel degenerative arthropathy and degenerative disc disease of the lumbar spine. CT/Abdomen/Pelvis WITH Contrast IMPRESSION: 1. Large abdominal wall defect probably representing a large soft tissue ulceration with a collection of gas but without definite abscess. 2. Hepatomegaly and splenomegaly. 3. Bilateral basilar airspace consolidation and/or atelectasis. 4. Sequela of coronary artery vascular disease. Electronically Signed: Dai Mac MD at 14:15 EDT , Service support ,
[2017-05-04 11:51] LABS: Bedside Glucose 123 mg/dL (70-110)
[2017-05-04 12:47] LABS: Bacteria 0 SEEN /hpf (None Seen); Mucous, Urine 0 SEEN /hpf (<or=2+); Red Blood Cells-Urine 0 SEEN /hpf (0-5); Squamous Epithelial Cells - UA 0 SEEN /hpf (5-10); White Blood Cells 0 SEEN /hpf (0-5)
[2017-05-04 12:52] LABS: Color, Urine Yellow (Yellow); Glucose, Dipstick Normal (Normal); Ketone-Dipstick Negative (Negative); Leukocyte Esterase-Dipstick 25 /ul (Negative); Nitrite-Dipstick Negative (Negative); Occult Blood-Urine Negative /ul (Negative); Protein-Dipstick Negative (Negative); Specific Gravity, Urine 1.005 (1.002-1.030); Urine Bilirubin Dipstick Negative (Negative); Urine Clarity Clear (Clear); Urine Urobilinogen Normal (Normal)
--- NOTE | 2017-05-04 13:32 | CASEMGMT ---
Social Work Call back from [facility] with admissions stating that the pt has used 54 days. Claims that they do have a social work therapist on campus and they had a care conference two weeks ago to discuss the pt's options once she has reached her 100 days. Will continue to provide updated clinicals and communicate the anticipated discharge date. Plan: Return to [facility] at discharge. SANGEETHA OntiverosW
[2017-05-04] MEDS: Docusate Sodium 100 MG Capsule PO ×2 (14:12→21:29)
[2017-05-04] MEDS: Pantoprazole Sodium 40 MG Tablet PO ×2 (14:14→21:29)
[2017-05-04] MEDS: Chlorhexidine 480 ML 15 ML PO ×2 (14:14→21:29)
[2017-05-04] MEDS: Lisinopril 10 MG Tablet PO (14:15)
[2017-05-04] MEDS: Glucerna Shake 120 ML LIQUID PO ×3 (14:17→21:34)
[2017-05-04] MEDS: 0.9% NaCl Peripheral Flush Adult/Peds IV (14:19)
[2017-05-04] MEDS: Acetaminophen 325 MG Tablet PO (14:41)
[2017-05-04 17:10] LABS: Bedside Glucose 130 mg/dL (70-110)
[2017-05-04] MEDS: Atorvastatin Calcium 10 MG Tablet PO (21:29)
[2017-05-04] MEDS: Mirtazapine 15 MG Tablet PO (21:29)
[2017-05-04] MEDS: HYDROmorphone 1 MG/ML Syringe IV (23:27)
[2017-05-04 23:51] LABS: Bedside Glucose 128 mg/dL (70-110)
[2017-05-05] VITALS (14 sets, daily range): BP systolic 113–146; BP diastolic 44–78; PULSE 60–105; RESP 15–18; TEMP 35.1–36.9; O2SAT 96–100; BMI 43.9
--- NOTE | 2017-05-05 04:20 | EKG12_ITS ---
Test Reason : AM EKG Blood Pressure : / mmHG Vent. Rate : 098 BPM Atrial Rate : 098 BPM P-R Int : 198 ms QRS Dur : 078 ms QT Int : 350 ms P-R-T Axes : 035 -11 057 degrees QTc Int : 446 ms Normal sinus rhythm with sinus arrhythmia Normal ECG No previous ECGs available Confirmed by XAVIER ROSS ([id number]), associate editor ALPHONSE WHITFIELD ([id number]) on 05/18/2017 1:56:11 PM Referred By: CHIQUIS Confirmed By:XAVIER ROSS
[2017-05-05] MEDS: 0.9% NaCl Peripheral Flush Adult/Peds IV (06:00)
[2017-05-05] MEDS: Enoxaparin 40 MG/0.4 ML Syringe SC (06:00)
[2017-05-05] MEDS: Ondansetron 4 MG/2 ML Vial IV ×2 (06:00→16:29)
[2017-05-05 06:36] LABS: Bedside Glucose 134 mg/dL (70-110)
[2017-05-05 06:54] LABS: Absolute Lymphocyte Count 0.72 X10^3/ul (0.83-4.51); Absolute Neutrophil Count 3.6 X10^3/uL (2.0-7.7); Basophil# 0.01 X10^3/uL; Basophil% 0.2 % (0-1); Eosinophil# 0.28 X10^3/uL; Eosinophils% 5.6 % (0-5); Hematocrit 31.4 % (37-47); Hemoglobin 9.8 g/dl (12.0-15.0); Lymphocyte # 0.72 X10^3/ul (4.0); Lymphocyte % 14.3 % (19-41); Mean Corp Hgb Conc 31.2 g/gl (32-36); Mean Corpuscular Volume 80.1 fL (81-99); Mean Platelet Vol. 10.8 fl (6.2-12.0); Monocyte# 0.41 X10^3/uL; Monocyte% 8.2 % (0-10); Neutrophil # 3.56 X10^3/uL (2.7-7.7); Neutrophil % 70.7 % (47-70); POSITIVE COUNT NO; POSITIVE DIFFERENTIAL NO; POSITIVE MORPHOLOGY NO; Platelet Count 234 K/mm3 (150-450); RBC Distribution Width SD 51.1 fl (35.1-43.9); Red Blood Count 3.92 M/mm3 (4.2-5.4)
[2017-05-05 07:00] LABS: Anion Gap 10 (5-15); BUN 15 mg/dL (7-18); BUN/Creat Ratio 20.5 RATIO (10-20); Calcium,Total 8.3 mg/dL (8.5-10.1); Chloride 104 mmol/L (98-107); Creatinine, Serum 0.73 mg/dL (0.55-1.02); EST Glomerular Filtration Rate 83 mL/min (>60); Est Glom Filt Rate - Afr Amer 100 mL/min (>60); Estimated Creatinine Clearance 39.63 ml/min; Glucose 128 mg/dL (70-110); Sodium Level 140 mmol/L (136-145)
[2017-05-05 07:01] LABS: International Normalized Ratio 1.3; Prothrombin Time (Protime)PT. 15.6 SECONDS (11.7-14.9)
[2017-05-05 08:40] LABS: Vitamin B12 522 pg/mL (211-911)
--- NOTE | 2017-05-05 09:39 | PCM.PN.ID ---
Patient Problems: Active and Suspected Problems Cellulitis of abdominal wall (Acute) L03.311 Subjective: Patient is tolerating meropenem well. Overall clinically stable. Had a uneventful night no specific complaints. Objective: Alert and oriented ?3 does not appear toxic lungs are clear heart exam S1-S2 abdomen is obese but soft. Large abdominal wound. CT scan of the abdomen pelvis results reviewed CBC and chemistry profile reviewed along with the microbiological data - Physical Exam Vital Signs Temp Pulse Resp BP Pulse Ox 98.4 F 98 16 126/52 98 05/05/17 09:11 05/05/17 09:11 05/05/17 09:11 05/05/17 09:11 05/05/17 09:12 Oxygen Delivery Method Room Air Weight: 108.862 kg Body Mass Index (BMI) 43.9 Intake and Output for Last 24 Hours 05/03/17 05/04/17 05/05/17 23:59 23:59 23:59 Intake Total 475 3054 1200 Output Total 1150 Balance 475 1904 1200 Microbiology Past 72 Hours 05/03/17 17:15 Gram Stain - Final Wound - Aerobic & Anaerobic Swabs Wound Culture - Preliminary Gram negative gorge Beta hemolytic organism Laboratory Tests Past 24 Hrs 05/04/17 05/04/17 05/04/17 05:50 11:40 12:23 WBC RBC Hgb Hct MCV MCH MCHC RDW RDW Differential Plt Count MPV Immature Gran % (Auto) Neut % (Auto) Lymph % (Auto) Republic % (Auto) Eos % (Auto) Baso % (Auto) Absolute Neuts (auto) Absolute Lymphs (auto) Total Counted PT INR Sodium Potassium Chloride Carbon Dioxide Anion Gap BUN Creatinine Estim Creat Clear Calc Est GFR (MDRD) Af Amer Est GFR (MDRD) Non-Af BUN/Creatinine Ratio Glucose Calcium Vitamin B12 522 Urine Color Yellow Urine Clarity Clear Urine pH 7.0 Ur Specific [place] 1.005 Urine Protein Negative Urine Glucose (UA) Normal Urine Ketones Negative Urine Occult Blood Negative Urine Nitrite Negative Urine Bilirubin Negative Urine Urobilinogen Normal Ur Leukocyte Esterase 25 H Urine RBC 0 SEEN Urine WBC 0 SEEN Ur Squamous Epith Cells 0 SEEN Urine Bacteria 0 SEEN Urine Mucus 0 SEEN Blood Type O POSITIVE Antibody Screen NEGATIVE Crossmatch See Detail 05/05/17 05/05/17 05/05/17 06:30 06:30 06:30 WBC 5.0 RBC 3.92 L Hgb 9.8 L Hct 31.4 L MCV 80.1 L MCH 25.0 L MCHC 31.2 L RDW 18.0 H RDW Differential 51.1 H Plt Count 234 MPV 10.8 Immature Gran % (Auto) 1.000 H Neut % (Auto) 70.7 H Lymph % (Auto) 14.3 L Republic % (Auto) 8.2 Eos % (Auto) 5.6 H Baso % (Auto) 0.2 Absolute Neuts (auto) 3.6 Absolute Lymphs (auto) 0.72 L Total Counted Not Reportable PT 15.6 H INR 1.3 Sodium 140 Potassium 4.0 Chloride 104 Carbon Dioxide 26.0 Anion Gap 10 BUN 15 Creatinine 0.73 Estim Creat Clear Calc 39.63 Est GFR (MDRD) Af Amer 100 Est GFR (MDRD) Non-Af 83 BUN/Creatinine Ratio 20.5 H Glucose 128 H Calcium 8.3 L Vitamin B12 Urine Color Urine Clarity Urine pH Ur Specific [place] Urine Protein Urine Glucose (UA) Urine Ketones Urine Occult Blood Urine Nitrite Urine Bilirubin Urine Urobilinogen Ur Leukocyte Esterase Urine RBC Urine WBC Ur Squamous Epith Cells Urine Bacteria Urine Mucus Blood Type Antibody Screen Crossmatch POC Glucose 05/05/17 05/04/17 05/04/17 06:14 23:47 17:00 POC Glucose 134 H 128 H 130 H 05/04/17 11:28 POC Glucose 123 H Route of nutrition/ use of supplements: [] Nutritional Intake: [] IV Site: [] [place] Catheter: [] - Assessment/Plan Postop abdominal wound with concern of arterial superinfection. Plan to continue meropenem and continue local wound care.
--- NOTE | 2017-05-05 10:34 | NURSING ---
Report given to Angela perez in surgery at this time.
--- NOTE | 2017-05-05 10:39 | CHAPLAIN ---
Type of Pastoral Visit _x__ Initial Visit ___ Follow-up Visit ___ On-call Visit ___ General Patient Visit ___ Spiritual Assessment ___ Family Conference ___ Bereavement ___ Rapid Response ___ Code Blue ___ Other (describe below) Pastoral Care Referral From _x__ Patient ___ Family _x__ Nurse ___ Physician ___ Account Support Associate ___ Motor Installer ___ Other (describe below) Sacrament/Intervention _x__ Active listening ___ Anointing ___ Baptist ___ Bereavement ___ Communion _x__ Nelsy exploration ___ _x__ Life review _x__ Prayer ___ Reconciliation ___ Sacrament of Sick _x__ Supportive presence ___ Wedding ___ Other (describe below) Pastoral Comments patient requested that someone sit with her and also offer a prayer before she goes into surgery; family is on their way to hospital but may not arrive in time to see her prior to surgery; pt shares some anxiety about surgery;
--- NOTE | 2017-05-05 12:04 | PCA ---
pt off floor
--- NOTE | 2017-05-05 13:12 | PCA ---
pt off floor
--- NOTE | 2017-05-05 13:14 | DEB_PTH ---
PATIENT: ALPHONSO PHILLIP LOC: [facility] U#:[id number] AGE/SX: 72/F ROOM: NV323 RE05/03/[address]: Dr. Santos Sevilla MD : [id number] BED: 1 DIS: 05/09/2017 SPEC #: [id number] RECD: 05/05/17 15:17 STATUS: ANSLEY REMarii #: [id number] LACI: 05/05/17 13:[address]: Ceferino Castellon DEPT: SURGICAL PATHOLOGY RECD BY: Lev Guerrero ENTERED: 05/05/17 15:18 SP TYPE: HITESH TISS OTHR DR: MD Dr. Yon Nelson MD Dr. Prakash Chand, MD Dr. Phillip Teague, MD Tissues: Abdomen, NOS Procedures: Surgery Specimen Level III Comments: @ Ordering doctor for SUIII edited from to @ by GOLDOD at 05/05/171710 @ Submitting doctor edited from to @ by RGOOD at 05/05/171710 HEADER OPERATION: Abdominal wall with debridement PRE-OP DIAGNOSIS: Nonhealing infected abdominal wall ulcer, infected prosthetic mesh abdominal wall TISSUE SUBMITTED: Debrided abdominal wall MICROSCOPIC DIAGNOSIS Debrided tissue, abdominal wall: Skin with underlying adipose tissue with ulceration, granulation tissue reaction, fat necrosis, associated acute and chronic inflammation and foreign body giant cell reaction. SEA:litzy 05/09/17 MICROSCOPIC DESCRIPTION Slides are reviewed. GROSS DESCRIPTION Received in fixative is one container labeled with the patient's name and designated debrided abdominal wall. The specimen consists of multiple pieces of skin and underlying adipose tissue measuring in aggregate 37 x 24 x 9 cm. An extensive area of ulceration is noted. Group Cio sections are submitted in six cassettes. / Lanny 05/08/17 TC:2 CPT: 80773
--- NOTE | 2017-05-05 13:55 | PN_ITS ---
Patient Problems: Active and Suspected Problems Cellulitis of abdominal wall (Acute) L03.311 Subjective: Patient is a 72-year-old lady who presented with a nonhealing deep subcutaneous infected wound involving the lower abdomen. Consult was placed to Dr. Castellon plan is for patient undergo wound debridement on 05/05/2017 Objective: GENERAL: cooperative HEENT: Clear conjunctiva, NECK; supple, normal thyroid, CHEST: Diminished to auscultation bilaterally, HEART: Regular S1 S2, no audible murmurs ABDOMEN: soft, lower abdominal infected wound RECTAL: deferred EXTREMITIES: No cyanosis. DIE PRESSER: Awake, no lateralizing signs. SKIN: As described above Vitals/I&O's: Vital Signs Temp Pulse Resp BP Pulse Ox 98.4 F 98 16 126/52 98 05/05/17 09:11 05/05/17 09:11 05/05/17 09:11 05/05/17 09:11 05/05/17 09:12 Oxygen Delivery Method Room Air Weight: 108.862 kg Body Mass Index (BMI) 43.9 Intake and Output for Last 24 Hours 05/03/17 05/04/17 05/05/17 23:59 23:59 23:59 Intake Total 475 3054 1200 Output Total 1150 Balance 475 1904 1200 Microbiology Past 72 Hours 05/04/17 12:23 Urine, Clean Catch Urine Culture - Preliminary Culture exhibits no growth. 05/03/17 17:15 Wound - Aerobic & Anaerobic Swabs Gram Stain - Final 05/03/17 17:15 Wound - Aerobic & Anaerobic Swabs Wound Culture - Preliminary Proteus sp. Gram negative gorge Staphylococcus aureus Laboratory Results 05/04/17 05:50: Vitamin B12 522 05/04/17 11:40: Blood Type O POSITIVE, Antibody Screen NEGATIVE, Crossmatch See Detail 05/04/17 17:00: POC Glucose 130 H 05/04/17 23:47: POC Glucose 128 H 05/05/17 06:14: POC Glucose 134 H 05/05/17 06:30: WBC 5.0, RBC 3.92 L, Hgb 9.8 L, Hct 31.4 L, MCV 80.1 L, MCH 25.0 L, MCHC 31.2 L, RDW 18.0 H, RDW Differential 51.1 H, Plt Count 234, MPV 10.8, Immature Gran % (Auto) 1.000 H, Neut % (Auto) 70.7 H, Lymph % (Auto) 14.3 L, Hill % (Auto) 8.2, Eos % (Auto) 5.6 H, Baso % (Auto) 0.2, Absolute Neuts ( auto) 3.6, Absolute Lymphs (auto) 0.72 L, Total Counted Not Reportable 05/05/17 06:30: PT 15.6 H, INR 1.3 05/05/17 06:30: Sodium 140, Potassium 4.0, Chloride 104, Carbon Dioxide 26.0, Anion Gap 10, BUN 15, Creatinine 0.73, Estim Creat Clear Calc 39.63, Est GFR ( MDRD) Af Amer 100, Est GFR (MDRD) Non-Af 83, BUN/Creatinine Ratio 20.5 H, Glucose 128 H, Calcium 8.3 L Current Medications Acetaminophen (Tylenol) 325 mg PO Q4H PRN PRN Reason: PAIN Last Admin: 05/04/17 14:41 Dose: 325 mg [facility] ([facility]oprim) [facility] Last Admin: 05/05/17 10:20 Dose: Not Given Artificial Tears (Tears Naturale, Artificial Tears) 1 drop EACH EYE DAILY PRN Atorvastatin Calcium (Lipitor) 10 mg PO QHS [facility] Last Admin: 05/04/17 21:29 Dose: 10 mg Calcium/Vitamin D (Os-Jonathan 500mg + D) [facility] Last Admin: 05/05/17 10:19 Dose: Not Given Chlorhexidine Gluconate (Peridex) 15 ml PO BID [facility] Last Admin: 05/05/17 10:20 Dose: Not Given Dextrose (D50w Syringe) 0 gm IV X1 PRN; Protocol PRN Reason: Hypoglycemia Docusate Sodium (Colace) 100 mg PO BID [facility] Last Admin: 05/05/17 10:20 Dose: Not Given Enoxaparin Sodium (Lovenox) 40 mg SC DAILY@0600 [facility] Last Admin: 05/05/17 06:00 Dose: 40 mg Ferrous Sulfate (Ferrous Sulfate) 325 mg PO TIDCM [facility] Last Admin: 05/05/17 10:19 Dose: Not Given Glucagon () 1 mg IM .X1 PRN PRN Reason: Hypoglycemia Hydromorphone HCl (Dilaudid) 1 mg IV Q3H PRN PRN PRN Reason: SEVERE PAIN (6-10/10) Last Admin: 05/04/17 23:27 Dose: 1 mg Lactated Ringer's () 1,000 mls @ 60 mls/hr IV .[id number] [facility] Last Admin: 05/04/17 09:37 Dose: 60 mls/hr Meropenem 500 mg/ N/A 10 mls @ 200 mls/hr IV Q8 [facility] Insulin Aspart (Novolog Flexpen (Bkc)) 0 units SC ACHS [facility] PRN Reason: Protocol Last Admin: 05/05/17 07:35 Dose: Not Given Lisinopril (Zestril) 10 mg PO DAILY [facility] Last Admin: 05/05/17 10:21 Dose: Not Given Loperamide HCl (Imodium) 2 mg PO Q8H PRN PRN Reason: Diarrhea Metformin HCl (Glucophage) [facility] Last Admin: 05/05/17 10:19 Dose: Not Given Mirtazapine (Remeron) 15 mg PO QHS [facility] Last Admin: 05/04/17 21:29 Dose: 15 mg Multivitamins/Minerals (Multivitamin With Minerals) 1 tablet [facility] Last Admin: 05/05/17 10:19 Dose: Not Given Nutritional Formula (Manjit - [place] Flavor) 1 packet [facility] Last Admin: 05/05/17 10:19 Dose: Not Given Nutritional Formula (Lactose Free) (Glucerna Shake) 120 ml PO 4X/DAY [facility] Last Admin: 05/05/17 10:20 Dose: Not Given Ondansetron HCl (Zofran) 4 mg IV Q6H PRN PRN PRN Reason: NAUSEA Last Admin: 05/05/17 06:00 Dose: 4 mg Ondansetron HCl (Zofran Odt) 4 mg PO Q4H PRN PRN Reason: NAUSEA Last Admin: 05/04/17 08:35 Dose: 4 mg Oxycodone HCl (Oxyir) 10 mg PO Q4H PRN PRN PRN Reason: SEVERE PAIN (6-10/10) Last Admin: 05/04/17 02:40 Dose: 10 mg Pantoprazole Sodium (Protonix) 40 mg PO BID [facility] Last Admin: 05/05/17 10:20 Dose: Not Given Simethicone (Mylicon) 80 mg PO 4X/DAY PRN PRN Reason: Gas Sodium Chloride () 5 - 30 ml IV UD PRN PRN Reason: SALINE FLUSH Last Admin: 05/05/17 06:00 Dose: 10 ml Sodium Hypochlorite (Dakins Solution 0.25% (1/2 Strength)) 1 applic TOPICAL BID [facility] PRN Reason: Protocol Last Admin: 05/05/17 10:20 Dose: Not Given Assessment/Plan Active and Suspected Problems Cellulitis of abdominal wall (Acute) L03.311 Patient is a 72-year-old lady who presented with a nonhealing deep subcutaneous infected wound involving the lower abdomen. Consult was placed to Dr. Castellon plan is for patient undergo wound debridement on 05/05/2017 1. Nonhealing deep subcutaneous infected wound involving the anterior abdominal wall. Admitted to regular nursing floor cultures since grew Proteus. Dr. Castellon with plastic surgery on case with plans for patient undergo wound debridement on 05/05/2017 2. 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 Morbid obesity with BMI of 43.9 4. Hypertension-blood pressure controlled, home medications continued with dose adjustment as needed 5. Coronary artery disease per history 6. GERD 7. Dyslipidemia 8. Colonic diverticular disease 9. Gout 10. DVT prophylaxis Lovenox SC .
--- NOTE | 2017-05-05 14:48 | PCM.IMDPSTOP ---
Immediate Post-Op Note Date of Procedure: 05/05/17 Primary Surgeon/Physician: Ceferino Castellon latex foam worker: None Pre-Operative Diagnosis: 1. Nonhealing necrotizing infection ulcer abdominal wall. 2. Infected prosthetic mesh abdominal wall. 3. Cellulitis abdominal wall. 4. Proteus mirabilis infection. 5. Diabetes mellitus. 6. Anemia of chronic disease. Post-Operative Diagnosis: 1. Nonhealing necrotizing infection ulcer abdominal wall. 2. Infected prosthetic mesh abdominal wall. 3. Recurrent ventral hernia. 4. Cellulitis abdominal wall. 5. Proteus mirabilis infection. 6. Diabetes mellitus. 7. Anemia of chronic disease. Surgery/Procedure Performed:: 1. Surgical preparation abdominal wall with excisional debridement skin, subcutaneous tissue, muscle, and fascia for necrotizing soft tissue infection (962 cm2). 2. Removal of exposed infected mesh with fascial closure. 3. Repair of recurrent ventral hernia. Description of Surgical Findings:: 72 year old woman presents with a nonhealing infected abdominal wall ulcer. She initially had surgery on 02/22/17 for an incarcerated hernia with small bowel obstruction. She underwent exploratory laparotomy and lysis of adhesions and ventral hernia repair and a partial panniculectomy to aid in wound closure. It was noted in the operative report that dissection of the abdominal wall was done below the mesh. Patient states she has had hernia repairs in the past with mesh. There was no mention of the mesh being removed at that time. Postdischarge, she developed some wound healing problems mostly inferiorly at the level of the remaining panniculus. She had developed an infected seroma and wound care was instituted with the VAC. A wound culture was obtained on 04/07/17 that showed Proteus mirabilis. She was placed on antibiotics with Levaquin. She had trouble tolerating that antibiotic and was changed to Invanz. She has complaints of abdominal wall pain. She denies any fever. She is currently at an [facility]. Operative intervention was recommended. Today the patient underwent surgical preparation abdominal wall with excisional debridement skin, subcutaneous tissue, muscle, and fascia for necrotizing soft tissue infection (962 cm2) and removal of exposed infected mesh with fascial closure and repair of recurrent ventral hernia. Size of defect abdominal wall - 37 x 26 x 4 cm. Estimated Blood Loss: 250 ml. Specimen's removed: Necrotizing infection ulcer abdominal wall to Pathology and Microbiology. Drains: None. Type of Anesthesia:: General - Admit VTE Documentation VTE Present on Admission: No VTE Mechan Device Prophylaxis: SCD's VTE Pharm Prophylaxis ordered?: Yes
[2017-05-05] MEDS: Lactated Ringers 1,000 ML 60 ML IV (15:58)
[2017-05-05] MEDS: oxyCODONE 5 MG Tablet 10 MG PO (16:29)
[2017-05-05 16:51] LABS: Bedside Glucose 145 mg/dL (70-110)
[2017-05-05 18:07] LABS: Bedside Glucose 113 mg/dL (70-110)
--- NOTE | 2017-05-05 18:46 | NURSING ---
Pt. denies nausea at this time. Eating ice chips and tolerating well.
[2017-05-05] MEDS: HYDROmorphone 1 MG/ML Syringe IV (21:49)
[2017-05-05] MEDS: Glucerna Shake 120 ML LIQUID PO (21:51)
[2017-05-05] MEDS: Docusate Sodium 100 MG Capsule PO (21:51)
[2017-05-05] MEDS: Atorvastatin Calcium 10 MG Tablet PO (21:52)
[2017-05-05] MEDS: Pantoprazole Sodium 40 MG Tablet PO (21:53)
[2017-05-05] MEDS: Chlorhexidine 480 ML 15 ML PO (21:54)
[2017-05-05] MEDS: Mirtazapine 15 MG Tablet PO (21:54)
[2017-05-05] MEDS: BENZOCAINE/MENTHOL 1 LOZENGE 2 LOZENGE MUCOUS MEM (23:38)
[2017-05-06 00:06] LABS: Bedside Glucose 99 mg/dL (70-110)
[2017-05-06 04:17] VITALS: BP 116/57; PULSE 98; RESP 18; TEMP 36.7; O2SAT 96
[2017-05-06 05:46] LABS: Hematocrit 30.3 % (37-47); Hemoglobin 9.5 g/dl (12.0-15.0); Mean Corp Hgb Conc 31.4 g/gl (32-36); Mean Corpuscular Hgb 25.5 pg (27.0-32.0); Mean Corpuscular Volume 81.5 fL (81-99); Mean Platelet Vol. 10.5 fl (6.2-12.0); Platelet Count 230 K/mm3 (150-450); RBC Distribution Width CV 18.3 % (11.6-14.6); RBC Distribution Width SD 52.2 fl (35.1-43.9); Red Blood Count 3.72 M/mm3 (4.2-5.4); White Blood Count 5.9 K/mm3 (4.4-11.0)
[2017-05-06 05:49] LABS: Scan Indicated on CBC? Y/N NO
[2017-05-06 05:59] LABS: Anion Gap 7 (5-15); BUN 9 mg/dL (7-18); BUN/Creat Ratio 15.1 RATIO (10-20); Chloride 104 mmol/L (98-107); EST Glomerular Filtration Rate 105 mL/min (>60); Est Glom Filt Rate - Afr Amer 127 mL/min (>60); Estimated Creatinine Clearance 39.63 ml/min; Glucose 98 mg/dL (70-110); Sodium Level 141 mmol/L (136-145)
[2017-05-06] MEDS: Enoxaparin 40 MG/0.4 ML Syringe SC ×2 (06:34→16:34)
[2017-05-06] MEDS: Lactated Ringers 1,000 ML 60 ML IV ×2 (06:40→23:07)
[2017-05-06 06:46] LABS: Bedside Glucose 105 mg/dL (70-110)
[2017-05-06] MEDS: Docusate Sodium 100 MG Capsule PO ×2 (08:17→22:44)
[2017-05-06] MEDS: Multivitamins,Ther W-Minerals Tablet 1 TABLET PO (08:17)
[2017-05-06] MEDS: Calcium Carb/Vitamin D 1 TABLET Tablet PO ×2 (08:17→16:33)
[2017-05-06] MEDS: Pantoprazole Sodium 40 MG Tablet PO ×2 (08:18→22:46)
[2017-05-06] MEDS: Ferrous Sulfate 325 MG Tablet PO ×3 (08:18→16:33)
[2017-05-06] MEDS: Allopurinol 300 MG Tablet PO (08:18)
--- NOTE | 2017-05-06 08:21 | PN_ITS ---
Patient Problems: Active and Suspected Problems Cellulitis of abdominal wall (Acute) L03.311 Subjective: Patient underwent surgical preparation abdominal wall with excisional debridement skin, subcutaneous tissue, muscle, and fascia for necrotizing soft tissue infection (962 cm2). 2. Removal of exposed infected mesh with fascial closure. By Dr. Castellon on 05/05/2017 Objective: GENERAL: cooperative HEENT: Clear conjunctiva, NECK; supple, normal thyroid, CHEST: Diminished to auscultation bilaterally, HEART: Regular S1 S2, no audible murmurs ABDOMEN: soft, lower abdominal infected wound RECTAL: deferred EXTREMITIES: No cyanosis. INSULATION BLOWER: Awake, no lateralizing signs. SKIN: As described above Vitals/I&O's: Vital Signs Temp Pulse Resp BP Pulse Ox 98.0 F 98 18 116/57 96 05/06/17 04:17 05/06/17 04:17 05/06/17 04:17 05/06/17 04:17 05/06/17 04:17 Oxygen Flow Rate 2 Oxygen Delivery Method Room Air Weight: 108.862 kg Body Mass Index (BMI) 43.9 Finger Stick Blood Glucose 113 Intake and Output for Last 24 Hours 05/04/17 05/05/17 05/06/17 23:59 23:59 23:59 Intake Total 3054 3374 974 Output Total 1150 575 725 Balance 1904 2799 249 Microbiology Past 72 Hours 05/04/17 12:23 Urine, Clean Catch Urine Culture - Preliminary Culture exhibits no growth. 05/03/17 17:15 Wound - Aerobic & Anaerobic Swabs Gram Stain - Final 05/03/17 17:15 Wound - Aerobic & Anaerobic Swabs Wound Culture - Preliminary Proteus sp. Gram negative gorge Staphylococcus aureus Laboratory Results 05/04/17 05:50: Vitamin B12 522 05/05/17 15:07: POC Glucose 113 H 05/05/17 16:44: POC Glucose 145 H 05/05/17 21:57: POC Glucose 99 05/06/17 05:35: WBC 5.9, RBC 3.72 L, Hgb 9.5 L, Hct 30.3 L, MCV 81.5, MCH 25.5 L , MCHC 31.4 L, RDW 18.3 H, RDW Differential 52.2 H, Plt Count 230, MPV 10.5 05/06/17 05:35: Sodium 141, Potassium 4.0, Chloride 104, Carbon Dioxide 30.0, Anion Gap 7, BUN 9, Creatinine 0.60, Estim Creat Clear Calc 39.63, Est GFR (MDRD ) Af Amer 127, Est GFR (MDRD) Non-Af 105, BUN/Creatinine Ratio 15.1, Glucose 98 , Calcium 8.0 L 05/06/17 06:32: POC Glucose 105 Current Medications Acetaminophen (Tylenol) 325 mg PO Q4H PRN PRN Reason: PAIN Last Admin: 05/04/17 14:41 Dose: 325 mg [facility]) [facility] Last Admin: 05/06/17 08:18 Dose: 300 mg Artificial Tears (Tears Naturale, Artificial Tears) 1 drop EACH EYE DAILY PRN Last Admin: 05/05/17 21:50 Dose: 1 drop Atorvastatin Calcium (Lipitor) 10 mg PO QHS COUNTS INCLUDE 234 BEDS AT [facility] Last Admin: 05/05/17 21:52 Dose: 10 mg Calcium/Vitamin D (Os-Jonathan 500mg + D) [facility] Last Admin: 05/06/17 08:17 Dose: 1 tablet Chlorhexidine Gluconate (Peridex) 15 ml PO BID COUNTS INCLUDE 234 BEDS AT THE [facility] Last Admin: 05/05/17 21:54 Dose: 15 ml Dextrose (D50w Syringe) 0 gm IV X1 PRN; Protocol PRN Reason: Hypoglycemia Docusate Sodium (Colace) 100 mg PO BID COUNTS INCLUDE 234 BEDS AT THE [facility] Last Admin: 05/06/17 08:17 Dose: 100 mg Enoxaparin Sodium (Lovenox) 40 mg SC DAILY@0600 COUNTS INCLUDE 234 BEDS AT THE [facility] Last Admin: 05/06/17 06:34 Dose: 40 mg Ferrous Sulfate (Ferrous Sulfate) 325 mg PO TIDCM COUNTS INCLUDE 234 BEDS AT THE [facility] Last Admin: 05/06/17 08:18 Dose: 325 mg Glucagon () 1 mg IM .X1 PRN PRN Reason: Hypoglycemia Hydromorphone HCl (Dilaudid) 1 mg IV Q3H PRN PRN PRN Reason: SEVERE PAIN (6-04/18) Last Admin: 05/05/17 21:49 Dose: 1 mg Lactated Ringer's () 1,000 mls @ 60 mls/hr IV .[id number] COUNTS INCLUDE 234 BEDS AT THE [facility] Last Admin: 05/06/17 06:40 Dose: 60 mls/hr Meropenem 500 mg/ N/A 10 mls @ 200 mls/hr IV Q8 COUNTS INCLUDE 234 BEDS AT THE [facility] Last Admin: 05/06/17 06:34 Dose: 200 mls/hr Insulin Aspart (Novolog Flexpen (Bkc)) 0 units SC ACHS COUNTS INCLUDE 234 BEDS AT THE [facility] PRN Reason: Protocol Last Admin: 05/06/17 06:34 Dose: Not Given Lisinopril (Zestril) 10 mg PO DAILY COUNTS INCLUDE 234 BEDS AT THE [facility] Last Admin: 05/05/17 10:21 Dose: Not Given Loperamide HCl (Imodium) 2 mg PO Q8H PRN PRN Reason: Diarrhea Metformin HCl (Glucophage) [facility] Last Admin: 05/06/17 08:17 Dose: 500 mg Mirtazapine (Remeron) 15 mg PO QHS COUNTS INCLUDE 234 BEDS AT THE [facility] Last Admin: 05/05/17 21:54 Dose: 15 mg Multivitamins/Minerals (Multivitamin With Minerals) [facility] Last Admin: 05/06/17 08:17 Dose: 1 tablet Nutritional Formula (Manjit - [place] Flavor) [facility] Last Admin: 05/06/17 08:18 Dose: 1 packet Nutritional Formula (Lactose Free) (Glucerna Shake) 120 ml PO 4X/DAY COUNTS INCLUDE 234 BEDS AT THE [facility] Last Admin: 05/05/17 21:51 Dose: 120 ml Ondansetron HCl (Zofran) 4 mg IV Q6H PRN PRN PRN Reason: NAUSEA Last Admin: 05/05/17 16:29 Dose: 4 mg Ondansetron HCl (Zofran Odt) 4 mg PO Q4H PRN PRN Reason: NAUSEA Last Admin: 05/04/17 08:35 Dose: 4 mg Oxycodone HCl (Oxyir) 10 mg PO Q4H PRN PRN PRN Reason: SEVERE PAIN (6-10/10) Last Admin: 05/05/17 16:29 Dose: 10 mg Pantoprazole Sodium (Protonix) 40 mg PO BID COUNTS INCLUDE 234 BEDS AT THE [facility] Last Admin: 05/06/17 08:18 Dose: 40 mg Promethazine HCl (Phenergan (Ll)) 12.5 mg IM Q6H PRN PRN PRN Reason: NAUSEA/VOMITING Simethicone (Mylicon) 80 mg PO 4X/DAY PRN PRN Reason: Gas Sodium Chloride () 5 - 30 ml IV UD PRN PRN Reason: SALINE FLUSH Last Admin: 05/05/17 06:00 Dose: 10 ml Sodium Hypochlorite (Dakins Solution 0.25% (1/2 Strength)) 1 applic TOPICAL BID [facility] PRN Reason: Protocol Last Admin: 05/05/17 22:00 Dose: Not Given Throat Lozenges (Cepacol Sore Throat Lozenge) 2 lozenge MUCOUS MEM Q2H PRN PRN PRN Reason: SORE THROAT Last Admin: 05/05/17 23:38 Dose: 1 lozenge Assessment/Plan Active and Suspected Problems Cellulitis of abdominal wall (Acute) L03.311 Patient is a 72-year-old lady who presented with a nonhealing deep subcutaneous infected wound involving the lower abdomen. 1. Nonhealing deep subcutaneous infected wound involving the anterior abdominal wall. Admitted to regular nursing floor cultures since grew Proteus. Patient underwent surgical preparation abdominal wall with excisional debridement skin, subcutaneous tissue, muscle, and fascia for necrotizing soft tissue infection (962 cm2). 2. Removal of exposed infected mesh with fascial closure. By Dr. Castellon on 05/05/2017 2. 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 Morbid obesity with BMI of 43.9 4. Hypertension-blood pressure controlled, home medications continued with dose adjustment as needed 5. Coronary artery disease per history 6. GERD 7. Dyslipidemia 8. Colonic diverticular disease 9. Gout 10. DVT prophylaxis Lovenox SC .
[2017-05-06 08:26] VITALS: BP 122/48; PULSE 105; RESP 18; TEMP 36.9; O2SAT 96
[2017-05-06] MEDS: Chlorhexidine 480 ML 15 ML PO ×2 (09:28→23:03)
[2017-05-06] MEDS: Lisinopril 10 MG Tablet PO (09:28)
[2017-05-06] MEDS: Glucerna Shake 120 ML LIQUID PO ×4 (09:28→22:49)
--- NOTE | 2017-05-06 10:27 | OP.PCM_ITS ---
Report of Operation Date of Procedure: 05/05/17 Pre-Operative Diagnosis: 1. Nonhealing necrotizing infection ulcer abdominal wall. 2. Infected prosthetic mesh abdominal wall. 3. Cellulitis abdominal wall. 4. Proteus mirabilis infection. 5. Diabetes mellitus. 6. Anemia of chronic disease. Post-Operative Diagnosis: 1. Nonhealing necrotizing infection ulcer abdominal wall. 2. Infected prosthetic mesh abdominal wall. 3. Recurrent ventral hernia. 4. Cellulitis abdominal wall. 5. Proteus mirabilis infection. 6. Diabetes mellitus. 7. Anemia of chronic disease. Surgery/Procedure Performed:: 1. Surgical preparation abdominal wall with excisional debridement skin, subcutaneous tissue, muscle, and fascia for necrotizing soft tissue infection (962 cm2). 2. Removal of exposed infected mesh with fascial closure. 3. Repair of recurrent ventral hernia. Description of Surgical Findings:: 72 year old woman presents with a nonhealing infected abdominal wall ulcer. She initially had surgery on 02/22/17 for an incarcerated hernia with small bowel obstruction. She underwent exploratory laparotomy and lysis of adhesions and ventral hernia repair and a partial panniculectomy to aid in wound closure. It was noted in the operative report that dissection of the abdominal wall was done below the mesh. Patient states she has had hernia repairs in the past with mesh. There was no mention of the mesh being removed at that time. Postdischarge, she developed some wound healing problems mostly inferiorly at the level of the remaining panniculus. She had developed an infected seroma and wound care was instituted with the VAC. A wound culture was obtained on that showed Proteus mirabilis. She was placed on antibiotics with Levaquin. She had trouble tolerating that antibiotic and was changed to Invanz. She has complaints of abdominal wall pain. She denies any fever. She is [facility] at an [facility]. Operative intervention was recommended. Patient was informed of the risks and complications of the procedure including alternatives to surgery. These were discussed with her personally. She voices understanding and wishes to proceed. Size of defect abdominal wall - 37 x 26 x 4 cm. school curriculum developer: None Type of Anesthesia:: General Specimen's removed: Necrotizing infection ulcer abdominal wall to Pathology and Microbiology. Drains: None. Estimated Blood Loss (mL): 250 ml. Fluids Replaced: 1550 ml (IV Fluids 1200ml, and Urine Output 350 ml). Description of Procedure: Patient was taken to OR in supine position and placed under general anesthesia. Her abdominal wall was prepped and draped in usual fashion. SCDs were placed for DVT prophylaxis. Perioperative antibiotics were given intravenously. Preoperatively her culture showed Proteus. She was placed on meropenem. Using Xylocaine and epinephrine, I infiltrated the abdominal wall ulcer area. After waiting 5 minutes for the anesthetic to take effect, I excised the abdominal wall ulcer as well as the superior portion of the abdominal wall where the large amount of undermining was present. I excised down to the abdominal wall fascia. Hemostasis was obtained using electrocautery. There was a lot of fat necrosis present. Some odor was present. No gross pus was seen. When I got down to the abdominal wall fascia, there was a lot of thickened induration and inflammation around the fascia. This was excised in a tangential fashion. With her history of diabetes mellitus, I was concerned about a necrotizing infection process. Some of the fascia that was excised will be sent to pathology for analysis as well. As I was removing some of the indurated tissue on the abdominal wall there was some residual mesh that was present that was also removed since it is chronically infected. A recurrent ventral hernia defect was noted to the right of the midline. I probed this hernia defect and there was no abdominal tissue that was adherent to this defect. I did palpate some previously placed preperitoneal mesh. Since it is located underneath the abdominal wall I will leave it alone at this time. If the patient's large wound does not heal in a timely fashion, I will have the patient be evaluated by a general surgeon for the purpose of removing this preperitoneal mesh. This would necessitate complex abdominal wall reconstruction with component separation myofascial advancement flaps and possible placement of biologic graft. So at this point I closed the recurrent ventral hernia primarily with 0 Novafil simple running suture. The size of the hernia defect was about 4 cm. There were some other fascial defects present after removal of the exposed infected mesh. These fascial defects were also closed using 0 Novafil simple running suture. After excising and removing this necrotic infected tissue of her abdominal wall involving underlying fascia, I irrigated the wound with saline. Hemostasis was obtained using electrocautery. The size of the abdominal wall defect after the excision was 37 x 26 x 4 cm or 962 cm?. Because of the infection, I will leave the wound open at this time. I then packed the abdominal wall wound with Mepitel nonadherent dressing followed by Kerlix gauze with Betadine followed by dry Kerlix gauze and ABD pads for a compression dressing and this was stabilized with abdominal wall binder. Patient tolerated the procedure well and will be sent to the recovery room in satisfactory condition. She will be sent back upstairs risk for continued postoperative care. She will have the wound VAC placed postoperatively. Patient has a PICC line and will need to be on IV antibiotics after discharge. She came from an extended care facility and she will return there for a few weeks. Once the wound has stabilized with the VAC and I feel safe for her to have home health come to the house for continued care of her wound as well as her IV antibiotics, then plans will be will be made to have her go home. Post discharge she will also follow-up and see me at the wound center. Once the large wound has been stabilized over the next 4-6 weeks with wound VAC, we can consider delayed secondary wound closure and possibly skin grafting. At the time of admission, her prealbumin was low. We will continue nutritional supplementation with protein to help with the healing process. She will also continue her meropenem postoperatively. A positive operative culture may necessitate antibiotic modification. Grafts/Implants Used: None. - Complications None. - Admit VTE Documentation VTE Present on Admission: No VTE Mechan Device Prophylaxis: SCD's VTE Pharm Prophylaxis ordered?: Yes
[2017-05-06] MEDS: HYDROmorphone 1 MG/ML Syringe IV ×2 (11:22→21:49)
--- NOTE | 2017-05-06 11:50 | PCM.PN.SRG ---
Patient Problems: Active and Suspected Problems Cellulitis of abdominal wall (Acute) L03.311 Subjective: Postop #1 Patient is resting comfortably. Some oozing at the edges controlled with pressure. Will hold on the VAC and continue wound packing with Dakin's dressing changes. - Physical Exam General: Alert, Oriented x3 HEENT: PERRLA, EOMI Neck: Supple Lungs: Clear to auscultation Cardiovascular: Regular rate, Regular Rhythm Abdomen: Soft, Non-Distended, Tender - in the large abdominal wall wound. Extremities: No clubbing, No cyanosis, Edema - mild edema in lower extremities. Skin: Ulcer/ Wound - abdominal wall wound is stable. Minimal oozing at the edges easily controlled with pressure. Will hold off on the VAC and continue dressing changes with Dakin's. Neurological: Cranial nerves II-XII grossly intact Psych/Mental Status: Normal Affect, Appropriate Vital Signs Temp Pulse Resp BP Pulse Ox 98.4 F 105 18 122/48 96 05/06/17 08:26 05/06/17 08:26 05/06/17 08:26 05/06/17 08:26 05/06/17 08:26 Oxygen Flow Rate 2 Oxygen Delivery Method Room Air Weight: 108.862 kg Body Mass Index (BMI) 43.9 Finger Stick Blood Glucose 113 Intake and Output for Last 24 Hours 05/04/17 05/05/17 05/06/17 23:59 23:59 23:59 Intake Total 3054 3374 974 Output Total 1150 575 725 Balance 1904 2799 249 Microbiology Past 72 Hours 05/03/17 17:15 Gram Stain - Final Wound - Aerobic & Anaerobic Swabs Wound Culture - Preliminary Proteus sp. Morganella morganii sp morgani Staphylococcus aureus Anaerobic Culture - Preliminary Presumptive B. fragilis group 05/05/17 14:15 Wound Culture - Preliminary Tissue - Abdominal Proteus sp. Anaerobic Culture - Preliminary Checking for anaerobes, further studies to follow. 05/04/17 12:23 Urine Culture - Final Urine, Clean Catch Culture exhibits no growth. Laboratory Tests Past 24 Hrs 05/06/17 05/06/17 05:35 05:35 WBC 5.9 RBC 3.72 L Hgb 9.5 L Hct 30.3 L MCV 81.5 MCH 25.5 L MCHC 31.4 L RDW 18.3 H RDW Differential 52.2 H Plt Count 230 MPV 10.5 Sodium 141 Potassium 4.0 Chloride 104 Carbon Dioxide 30.0 Anion Gap 7 BUN 9 Creatinine 0.60 Estim Creat Clear Calc 39.63 Est GFR (MDRD) Af Amer 127 Est GFR (MDRD) Non-Af 105 BUN/Creatinine Ratio 15.1 Glucose 98 Calcium 8.0 L POC Glucose 05/06/17 05/05/17 05/05/17 06:32 21:57 16:44 POC Glucose 105 99 145 H 05/05/17 15:07 POC Glucose 113 H Assessment/Plan Active and Suspected Problems Cellulitis of abdominal wall (Acute) L03.311 1. Nonhealing infected abdominal wall ulcer. 2. Infected prosthetic mesh abdominal wall. 3. Cellulitis abdominal wall. 4. Proteus mirabilis infection. 5. Diabetes mellitus. 6. Anemia of chronic disease. Continue Meropenem. Preop cultures showed Proteus, Morganella morganii, Staphylococcus aureus, and B. fragilis. Operative cultures are pending. There was minimal oozing at the edges easily controlled with pressure. Will hold off on the VAC for now and continue dressing changes with Dakin's. Post discharge, the patient will followup at the Wound Center. If there is a plateau in the healing process, can consider delayed closure with skin grafting. Prealbumin is very low at 8.1. Continue nutritional supplementation with protein to help the healing process. Hgb was low at 8.8 which improved to 9.8 after PRBC in preparation for the surgery. Postop Hgb was stable at 9.5.
[2017-05-06 12:42] LABS: Bedside Glucose 154 mg/dL (70-110)
[2017-05-06 14:41] VITALS: BP 115/51; PULSE 67; RESP 18; TEMP 36.8; O2SAT 98
[2017-05-06 16:40] LABS: Bedside Glucose 210 mg/dL (70-110)
[2017-05-06] MEDS: 0.9% NaCl Peripheral Flush Adult/Peds IV (21:49)
[2017-05-06] MEDS: Ondansetron 4 MG/2 ML Vial IV (22:11)
[2017-05-06] MEDS: Atorvastatin Calcium 10 MG Tablet PO (22:45)
[2017-05-06] MEDS: Mirtazapine 15 MG Tablet PO (22:46)
[2017-05-06 23:00] LABS: Bedside Glucose 130 mg/dL (70-110)
[2017-05-06] MEDS: oxyCODONE 5 MG Tablet 10 MG PO (23:00)
[2017-05-06 23:58] VITALS: BP 105/47; PULSE 90; RESP 18; TEMP 36.8; O2SAT 97
[2017-05-07] VITALS (8 sets, daily range): BP systolic 110–116; BP diastolic 36–58; PULSE 77–90; RESP 18; TEMP 36.3–36.9; O2SAT 96–100
[2017-05-07] MEDS: Enoxaparin 40 MG/0.4 ML Syringe SC ×2 (06:10→17:17)
[2017-05-07] MEDS: oxyCODONE 5 MG Tablet 10 MG PO ×3 (06:47→19:55)
[2017-05-07 07:00] LABS: Bedside Glucose 109 mg/dL (70-110)
--- NOTE | 2017-05-07 07:07 | PN_ITS ---
Patient Problems: Active and Suspected Problems Cellulitis of abdominal wall (Acute) L03.311 Subjective: Patient seen sitting in a chair admitted to improvement in her overall condition. Patient complains of pain at the edges of her incision Objective: GENERAL: cooperative HEENT: Clear conjunctiva, NECK; supple, normal thyroid, CHEST: Diminished to auscultation bilaterally, HEART: Regular S1 S2, no audible murmurs ABDOMEN: soft, with surgical dressing in place RECTAL: deferred EXTREMITIES: No cyanosis. BULKHEAD CARPENTER: Awake, no lateralizing signs. SKIN: As described above Vitals/I&O's: Vital Signs Temp Pulse Resp BP Pulse Ox 97.4 F 78 18 116/58 100 05/07/17 04:43 05/07/17 04:44 05/07/17 04:44 05/07/17 04:43 05/07/17 04:44 Oxygen Flow Rate 2 Oxygen Delivery Method Room Air Weight: 108.862 kg Body Mass Index (BMI) 43.9 Finger Stick Blood Glucose 113 Intake and Output for Last 24 Hours 05/05/17 05/06/17 05/07/17 23:59 23:59 23:59 Intake Total 3374 1748 1165 Output Total 575 2125 1550 Balance 3789 -950 -383 Microbiology Past 72 Hours 05/05/17 14:15 Tissue - Abdominal Gram Stain - Final 05/05/17 14:15 Tissue - Abdominal Wound Culture - Preliminary Proteus sp. 05/05/17 14:15 Tissue - Abdominal Anaerobic Culture - Preliminary Checking for anaerobes, further studies to follow. 05/04/17 11:15 Blood Culture (Wb) - Line Draw Blood Culture - Preliminary No growth in 48 hours. 05/04/17 11:14 Blood Culture (Wb) - Anticubital Left Blood Culture - Preliminary No growth in 48 hours. 05/03/17 17:15 Wound - Aerobic & Anaerobic Swabs Gram Stain - Final 05/03/17 17:15 Wound - Aerobic & Anaerobic Swabs Wound Culture - Preliminary Proteus sp. Morganella morganii sp morgani Staphylococcus aureus 05/03/17 17:15 Wound - Aerobic & Anaerobic Swabs Anaerobic Culture - Preliminary Presumptive B. fragilis group 05/04/17 12:23 Urine, Clean Catch Urine Culture - Final Culture exhibits no growth. Laboratory Results 05/06/17 12:31: POC Glucose 154 H 05/06/17 16:31: POC Glucose 210 H 05/06/17 22:52: POC Glucose 130 H 05/07/17 06:43: POC Glucose 109 Current Medications Acetaminophen (Tylenol) 325 mg PO Q4H PRN PRN Reason: PAIN Last Admin: 05/04/17 14:41 Dose: 325 mg Allopurinol ([facility]oprim) [facility] Last Admin: 05/06/17 08:18 Dose: 300 mg Artificial Tears (Tears Naturale, Artificial Tears) 1 drop EACH EYE DAILY PRN Last Admin: 05/05/17 21:50 Dose: 1 drop Atorvastatin Calcium (Lipitor) 10 mg PO QHS [facility] Last Admin: 05/06/17 22:45 Dose: 10 mg Calcium/Vitamin D (Os-Jonathan 500mg + D) [facility] tablet [facility] Last Admin: 05/06/17 16:33 Dose: 1 tablet Chlorhexidine Gluconate (Peridex) 15 ml PO BID [facility] Last Admin: 05/06/17 23:03 Dose: 15 ml Dextrose (D50w Syringe) 0 gm IV X1 PRN; Protocol PRN Reason: Hypoglycemia Docusate Sodium (Colace) 100 mg PO BID [facility] Last Admin: 05/06/17 22:44 Dose: 100 mg Enoxaparin Sodium (Lovenox) 40 mg SC 0600,1800 [facility] Last Admin: 05/07/17 06:10 Dose: 40 mg Ferrous Sulfate (Ferrous Sulfate) 325 mg PO TIDCM [facility] Last Admin: 05/06/17 16:33 Dose: 325 mg Glucagon () 1 mg IM .X1 PRN PRN Reason: Hypoglycemia Hydromorphone HCl (Dilaudid) 1 mg IV Q3H PRN PRN PRN Reason: SEVERE PAIN (6-10/10) Last Admin: 05/06/17 21:49 Dose: 1 mg Lactated Ringer's () 1,000 mls @ 60 mls/hr IV .[id number] [facility] Last Admin: 05/06/17 23:07 Dose: 60 mls/hr Meropenem 500 mg/ N/A 10 mls @ 200 mls/hr IV Q8 [facility] Last Admin: 05/07/17 06:10 Dose: 200 mls/hr Insulin Aspart (Novolog Flexpen (Bkc)) 0 units SC ACHS [facility] PRN Reason: Protocol Last Admin: 05/07/17 06:44 Dose: Not Given Lisinopril (Zestril) 10 mg PO DAILY [facility] Last Admin: 05/06/17 09:28 Dose: 10 mg Loperamide HCl (Imodium) 2 mg PO Q8H PRN PRN Reason: Diarrhea Metformin HCl (Glucophage) [facility] Last Admin: 05/06/17 16:34 Dose: 500 mg Mirtazapine (Remeron) 15 mg PO QHS [facility] Last Admin: 05/06/17 22:46 Dose: 15 mg Multivitamins/Minerals (Multivitamin With Minerals) 1 tablet PO [facility]ILYSS[facility] Last Admin: 05/06/17 08:17 Dose: 1 tablet Nutritional Formula (Manjit - [place] Flavor) 1 packet [facility]SS[facility] Last Admin: 05/06/17 16:33 Dose: 1 packet Nutritional Formula (Lactose Free) (Glucerna Shake) 120 ml PO 4X/DAY [facility] Last Admin: 05/06/17 22:49 Dose: 120 ml Ondansetron HCl (Zofran) 4 mg IV Q6H PRN PRN PRN Reason: NAUSEA Last Admin: 05/06/17 22:11 Dose: 4 mg Ondansetron HCl (Zofran Odt) 4 mg PO Q4H PRN PRN Reason: NAUSEA Last Admin: 05/04/17 08:35 Dose: 4 mg Oxycodone HCl (Oxyir) 10 mg PO Q4H PRN PRN PRN Reason: SEVERE PAIN (6-10/10) Last Admin: 05/07/17 06:47 Dose: 10 mg Pantoprazole Sodium (Protonix) 40 mg PO BID [facility] Last Admin: 05/06/17 22:46 Dose: 40 mg Promethazine HCl (Phenergan (Ll)) 12.5 mg IM Q6H PRN PRN PRN Reason: NAUSEA/VOMITING Simethicone (Mylicon) 80 mg PO 4X/DAY PRN PRN Reason: Gas Sodium Chloride () 5 - 30 ml IV UD PRN PRN Reason: SALINE FLUSH Last Admin: 05/06/17 21:49 Dose: 10 ml Sodium Hypochlorite (Dakins Solution 0.25% (1/2 Strength)) 1 applic TOPICAL BID [facility] PRN Reason: Protocol Last Admin: 05/06/17 23:03 Dose: 1 applicatio Throat Lozenges (Cepacol Sore Throat Lozenge) 2 lozenge MUCOUS MEM Q2H PRN PRN PRN Reason: SORE THROAT Last Admin: 05/05/17 23:38 Dose: 1 lozenge Assessment/Plan Active and Suspected Problems Cellulitis of abdominal wall (Acute) L03.311 Patient is a 72-year-old lady who presented with a nonhealing deep subcutaneous infected wound involving the lower abdomen. Patient underwent excisional debridement of the wound and removal of an exposed infected mesh with partial closure by Dr. Castellon on 05/05/2017. Hospitalist service has been on consult assisted with management of patient medical comorbidities. 1. Nonhealing deep subcutaneous infected wound involving the anterior abdominal wall. Admitted to regular nursing floor cultures since grew Proteus. Patient underwent surgical preparation abdominal wall with excisional debridement skin, subcutaneous tissue, muscle, and fascia for necrotizing soft tissue infection (962 cm2). 2. Removal of exposed infected mesh with fascial closure. By Dr. Castellon on 05/05/2017 2. 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 Morbid obesity with BMI of 43.9; lifestyle modification including weight loss advised. 4. Hypertension-blood pressure controlled, home medications continued with dose adjustment as needed 5. Coronary artery disease per history 6. GERD 7. Dyslipidemia 8. Colonic diverticular disease 9. Gout 10. DVT prophylaxis Lovenox SC .
[2017-05-07] MEDS: Pantoprazole Sodium 40 MG Tablet PO ×2 (10:24→21:08)
[2017-05-07] MEDS: Ferrous Sulfate 325 MG Tablet PO ×3 (10:24→17:17)
[2017-05-07] MEDS: Calcium Carb/Vitamin D 1 TABLET Tablet PO ×2 (10:24→17:16)
[2017-05-07] MEDS: Multivitamins,Ther W-Minerals Tablet 1 TABLET PO (10:24)
[2017-05-07] MEDS: Docusate Sodium 100 MG Capsule PO ×2 (10:25→21:07)
[2017-05-07] MEDS: Allopurinol 300 MG Tablet PO (10:25)
[2017-05-07] MEDS: Lisinopril 10 MG Tablet PO (10:26)
[2017-05-07] MEDS: Chlorhexidine 480 ML 15 ML PO ×2 (10:26→21:08)
[2017-05-07] MEDS: Glucerna Shake 120 ML LIQUID PO ×4 (10:30→21:11)
--- NOTE | 2017-05-07 11:26 | PCA ---
Call placed to [facility] to confirm pt was set up for a specialty mattress and that mattress was delivered, spoke with Lois who confirmed. Confirmation number [id number]
[2017-05-07 11:41] LABS: Bedside Glucose 146 mg/dL (70-110)
[2017-05-07 12:03] LABS: Hemoglobin 10.1 g/dl (12.0-15.0); Mean Corp Hgb Conc 31.6 g/gl (32-36); Mean Corpuscular Hgb 25.6 pg (27.0-32.0); Mean Corpuscular Volume 81.2 fL (81-99); Mean Platelet Vol. 10.8 fl (6.2-12.0); Platelet Count 262 K/mm3 (150-450); RBC Distribution Width SD 53.4 fl (35.1-43.9); Red Blood Count 3.94 M/mm3 (4.2-5.4); Scan Indicated on CBC? Y/N NO; White Blood Count 6.6 K/mm3 (4.4-11.0)
[2017-05-07 12:05] LABS: Anion Gap 9 (5-15); BUN 15 mg/dL (7-18); BUN/Creat Ratio 17.7 RATIO (10-20); Calcium,Total 8.1 mg/dL (8.5-10.1); Chloride 104 mmol/L (98-107); Creatinine, Serum 0.85 mg/dL (0.55-1.02); EST Glomerular Filtration Rate 70 mL/min (>60); Est Glom Filt Rate - Afr Amer 85 mL/min (>60); Estimated Creatinine Clearance 46.62 ml/min; Glucose 136 mg/dL (70-110); Magnesium 1.4 mg/dL (1.8-2.4); Potassium 4.2 mmol/L (3.5-5.1); Sodium Level 140 mmol/L (136-145)
--- NOTE | 2017-05-07 13:06 | PCM.PN.SRG ---
Patient Problems: Active and Suspected Problems Cellulitis of abdominal wall (Acute) L03.311 Subjective: Postop #2 Complains of wound pain. - Physical Exam General: Alert, Oriented x3 HEENT: PERRLA, EOMI Neck: Supple Lungs: Clear to auscultation Cardiovascular: Regular rate, Regular Rhythm Abdomen: Soft, Non-Distended, Tender - in the large abdominal wall wound. Extremities: No clubbing, No cyanosis, Edema - mild edema in lower extremities. Skin: Ulcer/ Wound - abdominal wall wound is stable. Minimal oozing at the edges easily controlled with pressure. Continue Dakin's dressing changes daily. Will place VAC tomorrow. Neurological: Cranial nerves II-XII grossly intact Psych/Mental Status: Normal Affect, Appropriate Vital Signs Temp Pulse Resp BP Pulse Ox 98.5 F 77 18 110/41 98 05/07/17 10:13 05/07/17 10:17 05/07/17 10:13 05/07/17 10:13 05/07/17 10:13 Oxygen Flow Rate 2 Oxygen Delivery Method Room Air Weight: 108.862 kg Body Mass Index (BMI) 43.9 Finger Stick Blood Glucose 113 Intake and Output for Last 24 Hours 05/05/17 05/06/17 05/07/17 23:59 23:59 23:59 Intake Total 3374 1748 1678 Output Total 575 2125 1850 Balance 0226 -077 -353 Microbiology Past 72 Hours 05/05/17 14:15 Gram Stain - Final Tissue - Abdominal Wound Culture - Preliminary Proteus mirabilis Anaerobic Culture - Preliminary Checking for anaerobes, further studies to follow. 05/04/17 11:15 Blood Culture - Preliminary Blood Culture (Wb) - Line Draw No growth in 48 hours. 05/04/17 11:14 Blood Culture - Preliminary Blood Culture (Wb) - Anticubital Left No growth in 48 hours. 05/03/17 17:15 Gram Stain - Final Wound - Aerobic & Anaerobic Swabs Wound Culture - Preliminary Proteus sp. Morganella morganii sp morgani Staphylococcus aureus Anaerobic Culture - Preliminary Presumptive B. fragilis group 05/04/17 12:23 Urine Culture - Final Urine, Clean Catch Culture exhibits no growth. Laboratory Tests Past 24 Hrs 05/07/17 05/07/17 11:39 11:39 WBC 6.6 RBC 3.94 L Hgb 10.1 L Hct 32.0 L MCV 81.2 MCH 25.6 L MCHC 31.6 L RDW 19.0 H RDW Differential 53.4 H Plt Count 262 MPV 10.8 Sodium 140 Potassium 4.2 Chloride 104 Carbon Dioxide 27.0 Anion Gap 9 BUN 15 Creatinine 0.85 Estim Creat Clear Calc 46.62 Est GFR (MDRD) Af Amer 85 Est GFR (MDRD) Non-Af 70 BUN/Creatinine Ratio 17.7 Glucose 136 H Calcium 8.1 L Magnesium 1.4 L POC Glucose 05/07/17 05/07/17 05/06/17 11:24 06:43 22:52 POC Glucose 146 H 109 130 H 05/06/17 16:31 POC Glucose 210 H Assessment/Plan Active and Suspected Problems Cellulitis of abdominal wall (Acute) L03.311 1. Nonhealing infected abdominal wall ulcer. 2. Infected prosthetic mesh abdominal wall. 3. Cellulitis abdominal wall. 4. Proteus mirabilis infection. 5. Diabetes mellitus. 6. Anemia of chronic disease. Continue Meropenem. Preop cultures showed Proteus, Morganella morganii, Staphylococcus aureus, and B. fragilis. Operative culture shows Proteus. There was minimal oozing at the edges easily controlled with pressure. Will hold off on the VAC for now and continue dressing changes with Dakin's. Will place the VAC tomorrow. Post discharge, the patient will followup at the Wound Center. If there is a plateau in the healing process, can consider delayed closure with skin grafting. Prealbumin is very low at 8.1. Continue nutritional supplementation with protein to help the healing process. Hgb was low at 8.8 which improved to 9.8 after PRBC in preparation for the surgery. Postop Hgb has improved to 10.1.
[2017-05-07] MEDS: Lactated Ringers 1,000 ML 60 ML IV (15:23)
[2017-05-07 17:27] LABS: Bedside Glucose 137 mg/dL (70-110)
[2017-05-07] MEDS: BENZOCAINE/MENTHOL 1 LOZENGE 2 LOZENGE MUCOUS MEM (21:07)
[2017-05-07] MEDS: Acetaminophen 325 MG Tablet PO (21:07)
[2017-05-07] MEDS: Atorvastatin Calcium 10 MG Tablet PO (21:08)
[2017-05-07] MEDS: Mirtazapine 15 MG Tablet PO (21:08)
[2017-05-07 22:31] LABS: Bedside Glucose 194 mg/dL (70-110)
[2017-05-08] MEDS: oxyCODONE 5 MG Tablet 10 MG PO ×2 (00:12→21:47)
[2017-05-08] MEDS: Acetaminophen 325 MG Tablet PO ×2 (03:02→13:40)
[2017-05-08 03:35] VITALS: BP 101/42; PULSE 67; RESP 18; TEMP 36.5; O2SAT 98
[2017-05-08 03:36] VITALS: PULSE 67
[2017-05-08] MEDS: 0.9% NaCl Peripheral Flush Adult/Peds IV ×2 (06:31→13:41)
[2017-05-08] MEDS: Enoxaparin 40 MG/0.4 ML Syringe SC ×2 (06:31→17:44)
[2017-05-08 07:05] LABS: Bedside Glucose 118 mg/dL (70-110)
[2017-05-08 07:08] LABS: Anion Gap 9 (5-15); BUN 20 mg/dL (7-18); BUN/Creat Ratio 25.8 RATIO (10-20); Calcium,Total 8.2 mg/dL (8.5-10.1); Chloride 103 mmol/L (98-107); Creatinine, Serum 0.78 mg/dL (0.55-1.02); EST Glomerular Filtration Rate 78 mL/min (>60); Est Glom Filt Rate - Afr Amer 94 mL/min (>60); Estimated Creatinine Clearance 39.63 ml/min; Glucose 101 mg/dL (70-110); Sodium Level 140 mmol/L (136-145)
[2017-05-08 07:19] LABS: Hematocrit 28.4 % (37-47); Hemoglobin 8.7 g/dl (12.0-15.0); Mean Corp Hgb Conc 30.6 g/gl (32-36); Mean Corpuscular Hgb 25.2 pg (27.0-32.0); Mean Corpuscular Volume 82.3 fL (81-99); Mean Platelet Vol. 11.1 fl (6.2-12.0); Platelet Count 215 K/mm3 (150-450); RBC Distribution Width SD 53.4 fl (35.1-43.9); Red Blood Count 3.45 M/mm3 (4.2-5.4); White Blood Count 4.5 K/mm3 (4.4-11.0)
[2017-05-08 07:22] LABS: Scan Indicated on CBC? Y/N NO
[2017-05-08 10:03] VITALS: BP 116/67; PULSE 101; TEMP 36.9; O2SAT 97
--- NOTE | 2017-05-08 10:17 | PCM.PROGNOTE ---
<Marielle Barfield - Last Filed: 05/08/17 10:37> Patient Problems: Active and Suspected Problems Cellulitis of abdominal wall (Acute) L03.311 Subjective: Patient ambulating from restroom to chair. States she is feeling well. Complains of minimal pain in the area of incision. Denies fever, chills. States she is hoping to go home this afternoon. - Physical Exam General: Alert, Oriented x3, Cooperative, No apparent distress HEENT: Atraumatic, PERRLA, EOMI, Normocephalic Neck: Supple, No JVD, Negative Carotid Bruits Lungs: Clear to auscultation, Diminished Cardiovascular: Regular rate, Regular Rhythm, Normal S1, Normal S2, No murmurs Abdomen: Bowel Sounds Present, Soft, Non Tender, Obese, - - Surgical dressing intact. Extremities: No clubbing, No cyanosis, No edema, Capillary Refill Less than 3 Seconds Skin: No rashes, No breakdown, - - Lower abdominal wound. Dressing clean dry and intact. Musculoskeletal: No Tenderness to Palpation of Joints or Extremities Neurological: Cranial nerves II-XII grossly intact, Neuro grossly intact Psych/Mental Status: Normal Affect, Appropriate Vital Signs Temp Pulse Resp BP Pulse Ox 98.4 F 101 18 116/67 97 05/08/17 10:03 05/08/17 10:03 05/08/17 03:35 05/08/17 10:03 05/08/17 10:03 Oxygen Flow Rate 2 Oxygen Delivery Method Room Air Weight: 108 kg Body Mass Index (BMI) 43.9 Finger Stick Blood Glucose 113 Intake and Output for Last 24 Hours 05/06/17 05/07/17 05/08/17 23:59 23:59 23:59 Intake Total 1747 2017 1187 Output Total 2124 2049 800 Balance -377 -32 388 Microbiology Past 72 Hours 05/03/17 17:15 Gram Stain - Final Wound - Aerobic & Anaerobic Swabs Wound Culture - Final Proteus mirabilis Morganella morganii sp morgani Staphylococcus aureus Anaerobic Culture - Preliminary Presumptive B. fragilis group 05/05/17 14:15 Gram Stain - Final Tissue - Abdominal Wound Culture - Final Proteus mirabilis Enterococcus faecalis Anaerobic Culture - Preliminary Checking for anaerobes, further studies to follow. 05/04/17 11:15 Blood Culture - Preliminary Blood Culture (Wb) - Line Draw No growth in 48 hours. 05/04/17 11:14 Blood Culture - Preliminary Blood Culture (Wb) - Anticubital Left No growth in 48 hours. 05/04/17 12:23 Urine Culture - Final Urine, Clean Catch Culture exhibits no growth. Laboratory Tests Past 24 Hrs 05/07/17 05/07/17 05/08/17 11:39 11:39 06:40 WBC 6.6 4.5 RBC 3.94 L 3.45 L Hgb 10.1 L 8.7 L Hct 32.0 L 28.4 L MCV 81.2 82.3 MCH 25.6 L 25.2 L MCHC 31.6 L 30.6 L RDW 19.0 H 19.0 H RDW Differential 53.4 H 53.4 H Plt Count 262 215 MPV 10.8 11.1 Sodium 140 Potassium 4.2 Chloride 104 Carbon Dioxide 27.0 Anion Gap 9 BUN 15 Creatinine 0.85 Estim Creat Clear Calc 46.62 Est GFR (MDRD) Af Amer 85 Est GFR (MDRD) Non-Af 70 BUN/Creatinine Ratio 17.7 Glucose 136 H Calcium 8.1 L Magnesium 1.4 L 05/08/17 06:40 WBC RBC Hgb Hct MCV MCH MCHC RDW RDW Differential Plt Count MPV Sodium 140 Potassium 4.0 Chloride 103 Carbon Dioxide 28.0 Anion Gap 9 BUN 20 H Creatinine 0.78 Estim Creat Clear Calc 39.63 Est GFR (MDRD) Af Amer 94 Est GFR (MDRD) Non-Af 78 BUN/Creatinine Ratio 25.8 H Glucose 101 Calcium 8.2 L Magnesium POC Glucose 05/08/17 05/07/17 05/07/17 06:37 21:26 17:12 POC Glucose 118 H 194 H 137 H 05/07/17 11:24 POC Glucose 146 H Assessment/Plan Active and Suspected Problems Cellulitis of abdominal wall (Acute) L03.311 Patient is a 72-year-old female admitted 05/03/2017 who underwent excisional debridement of nonhealing deep subcutaneous infected wound involving the lower abdomen. She has a past medical history of type 2 diabetes mellitus, morbid obesity, hypertension, coronary artery disease, GERD, hyperlipidemia, colonic diverticular disease, gout. 1. Nonhealing deep subcutaneous infected wound involving the anterior abdominal wall-patient underwent surgical preparation abdominal wall with excisional debridement skin, subcutaneous tissue, muscle, and fascia for necrotizing soft tissue infection as well as removal of exposed infected mesh and fascial closure and repair of recurrent ventral hernia 05/05/[address] Castellon. Preop cultures showed Proteus, Morganella morganii, Staphylococcus aureus, and B. fragilis. Operative cultures positive for Proteus. Wound VAC to be placed today per Dr. Castellon. Patient will need further follow-up at wound center. Pre-albumin low at 8.1. Continue Ensure supplementation. Infectious disease consulted. Continue IV meropenem. Blood culture shows no growth. 2. Diabetes mellitus type 1-Ffev-Wczmn before meals at bedtime, sliding scale insulin. Continue metformin. Blood glucose has been stable. Patient does have a history of complications including diabetic gastroparesis. 3. Morbid obesity- BMI of 43.9, encouraged lifestyle and diet modifications. 4. Hypertension-continue home medication. Blood pressure stable. 5. Coronary artery disease-continue home medication. Denies chest pain. 6. GERD-continue PPI. 7. Hyperlipidemia-continue statin. 8. Colonic diverticular disease-stable. 9. Gout-continue allopurinol. 10. Acute on chronic iron deficiency anemia-continue iron supplementation. Slight drop in hemoglobin from patient's baseline as expected outcome following surgery. Hemoglobin 8.7. Iron Sucrose IV 200mg X1. Continue to monitor. DVT prophylaxis-Lovenox subcu <Santos Sevilla - Last Filed: 05/08/17 17:08> - Physical Exam General: Alert, Oriented x3, Cooperative, No apparent distress Neck: Supple, No JVD, Negative Carotid Bruits Lungs: Clear to auscultation, No rhonchi, No wheeze, No rales, Diminished Cardiovascular: Regular rate, Regular Rhythm, Normal S1, No murmurs Vital Signs Temp Pulse Resp BP Pulse Ox 98.4 F 101 18 116/67 97 05/08/17 10:03 05/08/17 10:03 05/08/17 03:35 05/08/17 10:03 05/08/17 10:03 Oxygen Flow Rate 2 Oxygen Delivery Method Room Air Weight: 108 kg Body Mass Index (BMI) 43.9 Finger Stick Blood Glucose 113 Intake and Output for Last 24 Hours 05/06/17 05/07/17 05/08/17 23:59 23:59 23:59 Intake Total 1747 2017 1665 Output Total 2124 2049 1099 Balance -377 -32 566 Microbiology Past 72 Hours 05/05/17 14:15 Gram Stain - Final Tissue - Abdominal Wound Culture - Final Proteus mirabilis Enterococcus faecalis Anaerobic Culture - Preliminary Checking for anaerobes, further studies to follow. 05/03/17 17:15 Gram Stain - Final Wound - Aerobic & Anaerobic Swabs Wound Culture - Final Proteus mirabilis Morganella morganii sp morgani Staphylococcus aureus Anaerobic Culture - Preliminary Presumptive B. fragilis group 05/04/17 11:15 Blood Culture - Preliminary Blood Culture (Wb) - Line Draw No growth in 48 hours. 05/04/17 11:14 Blood Culture - Preliminary Blood Culture (Wb) - Anticubital Left No growth in 48 hours. 05/04/17 12:23 Urine Culture - Final Urine, Clean Catch Culture exhibits no growth. Laboratory Tests Past 24 Hrs 05/08/17 05/08/17 05/08/17 06:40 06:40 15:10 WBC 4.5 RBC 3.45 L Hgb 8.7 L 8.9 L Hct 28.4 L 29.4 L MCV 82.3 MCH 25.2 L MCHC 30.6 L RDW 19.0 H RDW Differential 53.4 H Plt Count 215 MPV 11.1 Sodium 140 Potassium 4.0 Chloride 103 Carbon Dioxide 28.0 Anion Gap 9 BUN 20 H Creatinine 0.78 Estim Creat Clear Calc 39.63 Est GFR (MDRD) Af Amer 94 Est GFR (MDRD) Non-Af 78 BUN/Creatinine Ratio 25.8 H Glucose 101 Calcium 8.2 L POC Glucose 05/08/17 05/08/17 05/08/17 13:09 11:00 06:37 POC Glucose 113 H 205 H 118 H 05/07/17 05/07/17 21:26 17:12 POC Glucose 194 H 137 H Assessment/Plan This patient was seen in conjunction with CLINICAL PHARMACOLOGIST, Marielle. I have independently interviewed and examined the patient and reviewed pertinent history, examination findings, laboratory and plan of management. I have reviewed the note and concur fully with the documented findings with the few additional points. In brief, patient is admitted for chronic nonhealing deep subcutaneous infected wound over anterior abdominal wall, postsurgical complication of ventral hernia repair with mesh. Seen by ID doctor. Wound culture grows multiple organisms including Proteus, Morganella morganii, MSSA and Bacteroides fragilis. ID recommended IV meropenem for 1 week and weekly CBC, BMP and LFT. Follow-up ID doctor in 1-2 weeks. Acute on chronic iron deficiency anemia: IV sucrose ordered. On ferrous sulfate. I have discussed my assessment with CLINICAL PHARMACOLOGISTMarielle and orders have been reviewed. Patient was admitted to surgical service and hospitalist was consulted. Discharge summary to follow from surgical service. Hospitalist team will sign off.
[2017-05-08] MEDS: Lisinopril 10 MG Tablet PO (10:49)
[2017-05-08] MEDS: Allopurinol 300 MG Tablet PO (10:49)
[2017-05-08] MEDS: Docusate Sodium 100 MG Capsule PO ×2 (10:49→21:49)
[2017-05-08] MEDS: Calcium Carb/Vitamin D 1 TABLET Tablet PO ×2 (10:49→17:44)
[2017-05-08] MEDS: Pantoprazole Sodium 40 MG Tablet PO ×2 (10:49→21:51)
[2017-05-08] MEDS: Multivitamins,Ther W-Minerals Tablet 1 TABLET PO (10:49)
[2017-05-08] MEDS: Lactated Ringers 1,000 ML 60 ML IV (10:50)
[2017-05-08] MEDS: Chlorhexidine 480 ML 15 ML PO ×2 (10:51→21:50)
[2017-05-08] MEDS: Ferrous Sulfate 325 MG Tablet PO ×2 (10:51→17:44)
[2017-05-08] MEDS: Glucerna Shake 120 ML LIQUID PO (11:01)
[2017-05-08 11:36] LABS: Bedside Glucose 205 mg/dL (70-110)
--- NOTE | 2017-05-08 13:06 | CASEMGMT ---
Social Work Updated clinicals faxed to [place]. Call placed to Marielle and updated on incoming fax as well as the pt may discharge today, but we are awaiting confirmation from MARIO. ALEX to continue to follow and assist with discharge planning. Marielle Humphreys, BUNDLE BREAKER POTATO CHIP MAKER
--- NOTE | 2017-05-08 13:48 | NURSING ---
wound photo: abdomen
[2017-05-08 13:56] LABS: Bedside Glucose 113 mg/dL (70-110)
--- NOTE | 2017-05-08 15:00 | CASEMGMT ---
Social Work Confirmation from Dr. Sow (ID) that the pt is ok to discharge today. Will notify SNF and setup transportation. Marielle Humphreys, ASSISTANT GROCERY STORE MANAGER PRINCIPAL LIBRARIAN
[2017-05-08 15:19] LABS: Hematocrit 29.4 % (37-47); Hemoglobin 8.9 g/dl (12.0-15.0)
--- NOTE | 2017-05-08 16:00 | PCM.PN.ID ---
Patient Problems: Active and Suspected Problems Cellulitis of abdominal wall (Acute) L03.311 Subjective: Feeling ok, no fever, no issues with picc. Discharge planned to ECF. - Physical Exam General: Alert, Cooperative, No apparent distress Lungs: Clear to auscultation, Normal air movement Cardiovascular: Regular rate, Regular Rhythm Abdomen: Soft, Non Tender, Non-Distended Skin: No rashes, Ulcer/ Wound - Reviewed photos of abd wound, no gross purulence Vital Signs Temp Pulse Resp BP Pulse Ox 98.4 F 101 18 116/67 97 05/08/17 10:03 05/08/17 10:03 05/08/17 03:35 05/08/17 10:03 05/08/17 10:03 Oxygen Flow Rate 2 Oxygen Delivery Method Room Air Weight: 108 kg Body Mass Index (BMI) 43.9 Finger Stick Blood Glucose 113 Intake and Output for Last 24 Hours 05/06/17 05/07/17 05/08/17 23:59 23:59 23:59 Intake Total 1747 2017 1665 Output Total 2124 2049 1100 Balance -377 -32 566 Microbiology Past 72 Hours 05/05/17 14:15 Gram Stain - Final Tissue - Abdominal Wound Culture - Final Proteus mirabilis Enterococcus faecalis Anaerobic Culture - Preliminary Checking for anaerobes, further studies to follow. 05/03/17 17:15 Gram Stain - Final Wound - Aerobic & Anaerobic Swabs Wound Culture - Final Proteus mirabilis Morganella morganii sp morgani Staphylococcus aureus Anaerobic Culture - Preliminary Presumptive B. fragilis group 05/04/17 11:15 Blood Culture - Preliminary Blood Culture (Wb) - Line Draw No growth in 48 hours. 05/04/17 11:14 Blood Culture - Preliminary Blood Culture (Wb) - Anticubital Left No growth in 48 hours. 05/04/17 12:23 Urine Culture - Final Urine, Clean Catch Culture exhibits no growth. Laboratory Tests Past 24 Hrs 05/08/17 05/08/17 05/08/17 06:40 06:40 15:10 WBC 4.5 RBC 3.45 L Hgb 8.7 L 8.9 L Hct 28.4 L 29.4 L MCV 82.3 MCH 25.2 L MCHC 30.6 L RDW 19.0 H RDW Differential 53.4 H Plt Count 215 MPV 11.1 Sodium 140 Potassium 4.0 Chloride 103 Carbon Dioxide 28.0 Anion Gap 9 BUN 20 H Creatinine 0.78 Estim Creat Clear Calc 39.63 Est GFR (MDRD) Af Amer 94 Est GFR (MDRD) Non-Af 78 BUN/Creatinine Ratio 25.8 H Glucose 101 Calcium 8.2 L POC Glucose 05/08/17 05/08/17 05/08/17 13:09 11:00 06:37 POC Glucose 113 H 205 H 118 H 05/07/17 05/07/17 21:26 17:12 POC Glucose 194 H 137 H Route of nutrition/ use of supplements: [] Nutritional Intake: [] IV Site: [] [place] Catheter: [] - Assessment/Plan Antibiotics: [] Assessment/Plan: [] Active and Suspected Problems Cellulitis of abdominal wall (Acute) L03.311 Polymicrobial growth including proteus, enterococcus, and MSSA. Abx allergies also limit options. Picc in place. Ok for d/c to ECF for one more week of iv meropenem with weekly bmp, cbc, and lft while on iv abx. Rx written, d/w correctional counselor/case manager. Will sign off, please call with ?s.
--- NOTE | 2017-05-08 16:53 | NURSING ---
hgb results texted to ainsley esparza. javier nunn rn is paging dr cruz concerning dc orders
--- NOTE | 2017-05-08 16:59 | CHAPLAIN ---
Type of Pastoral Visit ___ Initial Visit _x__ Follow-up Visit ___ On-call Visit ___ General Patient Visit ___ Spiritual Assessment ___ Family Conference ___ Bereavement ___ Rapid Response ___ Code Blue ___ Other (describe below) Pastoral Care Referral From _x__ Patient ___ Family ___ Nurse ___ Physician ___ [employer] Fscm Developer ___ Mapping Analyst ___ Other (describe below) Sacrament/Intervention _x__ Active listening ___ Anointing ___ Rastafarian ___ Bereavement ___ Communion ___ Nelsy exploration ___ ___ Life review _x__ Prayer ___ Reconciliation ___ Sacrament of Sick ___ Supportive presence ___ Wedding ___ Other (describe below) Pastoral Comments
--- NOTE | 2017-05-08 17:40 | CASEMGMT ---
Social Work VM from Marielle at [facility] stating that since we are not sure that pt is discharging they do not have the staff to accept her today. Anticipate discharge for tomorrow. Will continue to follow and assist with discharge planning. Marielle Humphreys, SANGEETHA CATTLE SHIPPER
[2017-05-08 18:11] LABS: Bedside Glucose 138 mg/dL (70-110)
--- NOTE | 2017-05-08 18:40 | PCM.PN.SRG ---
Patient Problems: Active and Suspected Problems Cellulitis of abdominal wall (Acute) L03.311 Subjective: Postop #3 Patient is resting comfortably. - Physical Exam General: Alert, Oriented x3 HEENT: PERRLA, EOMI Neck: Supple Lungs: Clear to auscultation Cardiovascular: Regular rate, Regular Rhythm Abdomen: Soft, Non-Distended Extremities: No clubbing, No cyanosis, Edema - mild edema in the lower extremities. Skin: Ulcer/ Wound - abdominal wall wound is stable. Some granulation tissue seen. Continue Dakin's dressing changes daily. Will place VAC when sent to the F. Musculoskeletal: - - minimal tenderness right ribs. Neurological: Cranial nerves II-XII grossly intact Psych/Mental Status: Normal Affect, Appropriate Vital Signs Temp Pulse Resp BP Pulse Ox 98.4 F 101 18 116/67 97 05/08/17 10:03 05/08/17 10:03 05/08/17 03:35 05/08/17 10:03 05/08/17 10:03 Oxygen Flow Rate 2 Oxygen Delivery Method Room Air Weight: 108 kg Body Mass Index (BMI) 43.9 Finger Stick Blood Glucose 113 Intake and Output for Last 24 Hours 05/06/17 05/07/17 05/08/17 23:59 23:59 23:59 Intake Total 1748 2017 1666 Output Total 2124 2049 1100 Balance -377 -32 566 Microbiology Past 72 Hours 05/05/17 14:15 Gram Stain - Final Tissue - Abdominal Wound Culture - Final Proteus mirabilis Enterococcus faecalis Anaerobic Culture - Preliminary Checking for anaerobes, further studies to follow. 05/03/17 17:15 Gram Stain - Final Wound - Aerobic & Anaerobic Swabs Wound Culture - Final Proteus mirabilis Morganella morganii sp morgani Staphylococcus aureus Anaerobic Culture - Preliminary Presumptive B. fragilis group 05/04/17 11:15 Blood Culture - Preliminary Blood Culture (Wb) - Line Draw No growth in 48 hours. 05/04/17 11:14 Blood Culture - Preliminary Blood Culture (Wb) - Anticubital Left No growth in 48 hours. 05/04/17 12:23 Urine Culture - Final Urine, Clean Catch Culture exhibits no growth. Laboratory Tests Past 24 Hrs 05/08/17 05/08/17 05/08/17 06:40 06:40 15:10 WBC 4.5 RBC 3.45 L Hgb 8.7 L 8.9 L Hct 28.4 L 29.4 L MCV 82.3 MCH 25.2 L MCHC 30.6 L RDW 19.0 H RDW Differential 53.4 H Plt Count 215 MPV 11.1 Sodium 140 Potassium 4.0 Chloride 103 Carbon Dioxide 28.0 Anion Gap 9 BUN 20 H Creatinine 0.78 Estim Creat Clear Calc 39.63 Est GFR (MDRD) Af Amer 94 Est GFR (MDRD) Non-Af 78 BUN/Creatinine Ratio 25.8 H Glucose 101 Calcium 8.2 L POC Glucose 05/08/17 05/08/17 05/08/17 17:40 13:09 11:00 POC Glucose 138 H 113 H 205 H 05/08/17 05/07/17 06:37 21:26 POC Glucose 118 H 194 H Assessment/Plan Active and Suspected Problems Cellulitis of abdominal wall (Acute) L03.311 1. Nonhealing infected abdominal wall ulcer. 2. Infected prosthetic mesh abdominal wall. 3. Cellulitis abdominal wall. 4. Proteus mirabilis infection. 5. Diabetes mellitus. 6. Anemia of chronic disease. 7. Right rib pain, resolved. Continue Meropenem. Cultures show Proteus, Morganella morganii, Staphylococcus aureus, Enterococcus faecalis, and B. fragilis. She will stay on Meropenem at the ECF. Continue Dakin's solution dressing changes to the abdominal wall until discharged to the ECF where the nurses can apply the VAC. Post discharge, the patient will followup at the [facility]ound Center. She is scheduled for 05/22/17. When seen at the Wound Center, will reassess the antibiotics to determine if additional IV Meropenem is necessary. If there is a plateau in the healing process, can consider delayed closure with skin grafting. Prealbumin is very low at 8.1. Continue nutritional supplementation with protein to help the healing process. Hgb was low at 8.8 which improved to 9.8 after PRBC in preparation for the surgery. Postop Hgb has improved to 10.1.
[2017-05-08 21:32] VITALS: BP 113/39; PULSE 97; RESP 20; TEMP 37.1; O2SAT 97
[2017-05-08] MEDS: Atorvastatin Calcium 10 MG Tablet PO (21:50)
[2017-05-08] MEDS: Mirtazapine 15 MG Tablet PO (21:51)
[2017-05-08 22:31] LABS: Bedside Glucose 152 mg/dL (70-110)
--- NOTE | 2017-05-09 01:40 | PCM.DC ---
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 Discharge Activity: May Not Drive, May Shower - at the time of the VAC dressing changes. May shower in (days): 2 - may shower on the days the vac is changed. May resume sexual activity in: No Restrictions Weight Bearing Status: Weight bearing as tolerated Additional Activity Instructions:: nursing to assist with the VAC changes to the abdominal wall at 150 mmHg continuous suction 3 times per week. Call your doctor if your incision/area has: Continuous Slow Oozing, Sudden Increased Bleeding, Increased Pain/ Swelling, Increased Redness, Foul Smelling Discharge, Swelling at the incision site Call your doctor if you observe: Fever of 101 or Higher, Coldness, Increased Pain, Shortness of breath, Chest pain, Calf discomfort, Uncontrolled pain Suture Line Care: - - vac changes three times per week. Change Dressing in (Days):: 2 - vac changes three times per week. Cleanse incision/area with: Soap & Water - may cleanse the wound with soap and water at the time of the vac dressing changes. Pending Tests on Discharge: nursing to draw weekly CBC, CMP, ESR, and CRP. please fax results to the wound center at [phone]. Allergies/Adverse Reactions: Allergies Cephalosporins Allergy (Verified 05/02/17 22:52) Other clotrimazole Allergy (Verified 05/02/17 22:55) Other levofloxacin [From Levaquin] Allergy (Verified 05/04/17 11:39) Other metoclopramide [From Reglan] Allergy (Verified 05/02/17 22:52) Other Penicillins Allergy (Verified 05/02/17 22:51) Other prednisolone Allergy (Verified 05/02/17 22:54) Other Tetracyclines Allergy (Verified 05/02/17 22:54) Other promethazine [From Phenergan] Adverse Reaction (Verified 05/05/17 18:46) Other Restless legs Medications to take at Discharge Acetaminophen [Tylenol] 650 mg PO Q4H PRN 04/17/17 Allopurinol [Zyloprim] 300 mg PO DAILY 04/17/17 Aspirin 81 mg PO DAILY 04/17/17 Atorvastatin Calcium 10 mg PO QHS 04/17/17 Calcium Carbonate [Tums] 200 mg PO Q6H PRN 04/17/17 Calcium Carbonate/Vitamin D3 [Calcium 600-Vit D3 200 Tablet] 1 each PO BID 04/17/17 Chlorhexidine Gluconate [Peridex] 15 ml PO BID 04/17/17 Ferrous Sulfate 325 mg PO TIDCM 04/17/17 Ketoconazole [Nizoral Cream] 1 applic TOPICAL BID 04/17/17 Lisinopril [Zestril] 10 mg PO DAILY 04/17/17 Loperamide HCl [Imodium A-D] 2 mg PO Q8H PRN 04/17/17 Mirtazapine [Remeron] 15 mg PO QHS 04/17/17 Multivitamins,Ther W-Minerals [Multivitamin With Minerals] 1 tablet PO DAILY 04/17/17 Ondansetron HCl [Zofran] 4 mg PO Q8H PRN 04/17/17 Polyvinyl Alcohol [Artificial Tears] 1 drop EACH EYE PRN PRN 04/17/17 SimETHICONE [Mylicon] 80 mg PO 4X/DAY PRN 04/17/17 Cetyl Alc/Stearyl Alc/Pg/Sls [Cetaphil Cream] 1 applic TP BID 05/03/17 Docusate Sodium [Colace] 100 mg PO BID 05/03/17 L.acidoph,Paracasei, B.lactis [Probiotic] 1 each PO BID 05/03/17 Metformin HCl [Glucophage] 500 mg PO BIDCM 05/03/17 Mupirocin [Bactroban] 1 applic TOPICAL TID 05/03/17 Omeprazole 20 mg PO DAILY 05/03/17 Sodium Chloride 1 gm PO 4X/DAY PRN PRN 05/03/17 Diazepam [Valium] 5 mg PO 4X/DAY PRN PRN #30 tablet 05/09/17 Hydrocodone/Acetaminophen [[place] 5-325 Tablet] 1 - 2 each PO 4X/DAY PRN PRN #50 05/09/17 Meropenem [Merrem] 500 mg IV Q8 #42 vial 05/09/17 The following prescriptions were given: Diazepam [Valium] 5 mg PO 4X/DAY PRN PRN #30 tablet PRN Reason: Spasms Hydrocodone/Acetaminophen [[place] 5-325 Tablet] 1 - 2 each PO 4X/DAY PRN PRN #50 PRN Reason: Pain Meropenem [Merrem] 500 mg IV Q8 #42 vial Primary Care Physician: Kvng Weeks [Primary Care Provider] - Please Follow Up With: Ceferino Castellon MD - call [phone] for appt time. When: 05/22/17 at the wound center. Proposed Discharge Date: 05/09/17
--- NOTE | 2017-05-09 01:46 | DCINST_ITS ---
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 Discharge Activity: May Not Drive, May Shower - at the time of the VAC dressing changes. May shower in (days): 2 - may shower on the days the vac is changed. May resume sexual activity in: No Restrictions Weight Bearing Status: Weight bearing as tolerated Additional Activity Instructions:: nursing to assist with the VAC changes to the abdominal wall at 150 mmHg continuous suction 3 times per week. Call your doctor if your incision/area has: Continuous Slow Oozing, Sudden Increased Bleeding, Increased Pain/ Swelling, Increased Redness, Foul Smelling Discharge, Swelling at the incision site Call your doctor if you observe: Fever of 101 or Higher, Coldness, Increased Pain, Shortness of breath, Chest pain, Calf discomfort, Uncontrolled pain Suture Line Care: - - vac changes three times per week. Change Dressing in (Days):: 2 - vac changes three times per week. Cleanse incision/area with: Soap & Water - may cleanse the wound with soap and water at the time of the vac dressing changes. Pending Tests on Discharge: nursing to draw weekly CBC, CMP, ESR, and CRP. please fax results to the wound center at [phone]. Allergies/Adverse Reactions: Allergies Cephalosporins Allergy (Verified 05/02/17 22:52) Other clotrimazole Allergy (Verified 05/02/17 22:55) Other levofloxacin [From Levaquin] Allergy (Verified 05/04/17 11:39) Other metoclopramide [From Reglan] Allergy (Verified 05/02/17 22:52) Other Penicillins Allergy (Verified 05/02/17 22:51) Other prednisolone Allergy (Verified 05/02/17 22:54) Other Tetracyclines Allergy (Verified 05/02/17 22:54) Other promethazine [From Phenergan] Adverse Reaction (Verified 05/05/17 18:46) Other Restless legs Medications to take at Discharge Acetaminophen [Tylenol] 650 mg PO Q4H PRN 04/17/17 Allopurinol [Zyloprim] 300 mg PO DAILY 04/17/17 Aspirin 81 mg PO DAILY 04/17/17 Atorvastatin Calcium 10 mg PO QHS 04/17/17 Calcium Carbonate [Tums] 200 mg PO Q6H PRN 04/17/17 Calcium Carbonate/Vitamin D3 [Calcium 600-Vit D3 200 Tablet] 1 each PO BID 04/17 Chlorhexidine Gluconate [Peridex] 15 ml PO BID 04/17/17 Ferrous Sulfate 325 mg PO TIDCM 04/17/17 Ketoconazole [Nizoral Cream] 1 applic TOPICAL BID 04/17/17 Lisinopril [Zestril] 10 mg PO DAILY 04/17/17 Loperamide HCl [Imodium A-D] 2 mg PO Q8H PRN 04/17/17 Mirtazapine [Remeron] 15 mg PO QHS 04/17/17 Multivitamins,Ther W-Minerals [Multivitamin With Minerals] 1 tablet PO DAILY 03/26 Ondansetron HCl [Zofran] 4 mg PO Q8H PRN 04/17/17 Polyvinyl Alcohol [Artificial Tears] 1 drop EACH EYE PRN PRN 04/17/17 SimETHICONE [Mylicon] 80 mg PO 4X/DAY PRN 04/17/17 Cetyl Alc/Stearyl Alc/Pg/Sls [Cetaphil Cream] 1 applic TP BID 05/03/17 Docusate Sodium [Colace] 100 mg PO BID 05/03/17 L.acidoph,Paracasei, B.lactis [Probiotic] 1 each PO BID 05/03/17 Metformin HCl [Glucophage] 500 mg PO BIDCM 05/03/17 Mupirocin [Bactroban] 1 applic TOPICAL TID 05/03/17 Omeprazole 20 mg PO DAILY 05/03/17 Sodium Chloride 1 gm PO 4X/DAY PRN PRN 05/03/17 Diazepam [Valium] 5 mg PO 4X/DAY PRN PRN #30 tablet 05/09/17 Hydrocodone/Acetaminophen [[place] 5-325 Tablet] 1 - 2 each PO 4X/DAY PRN PRN #50 05/09/17 Meropenem [Merrem] 500 mg IV Q8 #42 vial 05/09/17 The following prescriptions were given: Diazepam [Valium] 5 mg PO 4X/DAY PRN PRN #30 tablet PRN Reason: Spasms Hydrocodone/Acetaminophen [[place] 5-325 Tablet] 1 - 2 each PO 4X/DAY PRN PRN #50 PRN Reason: Pain Meropenem [Merrem] 500 mg IV Q8 #42 vial Primary Care Physician: Kvng Weeks [Primary Care Provider] - Please Follow Up With: Ceferino Castellon MD - call [phone] for appt time. When: 05/22/17 at the wound center. Proposed Discharge Date: 05/09/17
[2017-05-09] MEDS: Lactated Ringers 1,000 ML 60 ML IV (03:56)
[2017-05-09 03:57] VITALS: BP 114/57; PULSE 97; RESP 20; TEMP 36.6; O2SAT 98
[2017-05-09] MEDS: 0.9% NaCl Peripheral Flush Adult/Peds IV (05:49)
[2017-05-09 06:19] LABS: Hematocrit 28.4 % (37-47); Hemoglobin 8.8 g/dl (12.0-15.0); Mean Corpuscular Hgb 25.4 pg (27.0-32.0); Mean Corpuscular Volume 81.8 fL (81-99); Mean Platelet Vol. 10.9 fl (6.2-12.0); Platelet Count 215 K/mm3 (150-450); RBC Distribution Width CV 19.1 % (11.6-14.6); Red Blood Count 3.47 M/mm3 (4.2-5.4); White Blood Count 5.6 K/mm3 (4.4-11.0)
[2017-05-09] MEDS: Enoxaparin 40 MG/0.4 ML Syringe SC (06:19)
[2017-05-09] MEDS: Acetaminophen 325 MG Tablet PO (06:30)
[2017-05-09 06:38] LABS: Anion Gap 8 (5-15); BUN 20 mg/dL (7-18); BUN/Creat Ratio 26.1 RATIO (10-20); Calcium,Total 8.3 mg/dL (8.5-10.1); Chloride 104 mmol/L (98-107); Creatinine, Serum 0.77 mg/dL (0.55-1.02); EST Glomerular Filtration Rate 78 mL/min (>60); Est Glom Filt Rate - Afr Amer 95 mL/min (>60); Estimated Creatinine Clearance 39.63 ml/min; Glucose 98 mg/dL (70-110); Potassium 3.9 mmol/L (3.5-5.1); Sodium Level 140 mmol/L (136-145)
[2017-05-09 06:43] LABS: Scan Indicated on CBC? Y/N NO
[2017-05-09 07:06] LABS: Bedside Glucose 110 mg/dL (70-110)
--- NOTE | 2017-05-09 08:21 | PCM.EXTCARCO ---
- Diet 05/03/17 12:50 Diet:Carbohydrate Controlled - Routine Orders/Code Status Enema Type: Fleetz Enema Frequency: Daily PRN Suppository Type: Dulcolax 10mg Suppository Frequency: Daily PRN O2 Liters per Minute: 2 O2 Frequency: PRN Keep PO Greater than or Equal to (%): 90 Routine Lab Work: - - nursing to draw weekly CBC, CMP, ESR, and CRP. please fax results to the wound center at [phone]. Code Status: Full Code - Wound(s) mid low abd Wound Type: open surgical wound s/p debridement Dressing Change: Wet to Dry Dressing - Therapies Weight Bearing: Weight bearing as tolerated - Allergies/Procedures Done in Hospital Allergies/Adverse Reactions: Allergies Cephalosporins Allergy (Verified 05/02/17 22:52) Other clotrimazole Allergy (Verified 05/02/17 22:55) Other levofloxacin [From Levaquin] Allergy (Verified 05/04/17 11:39) Other metoclopramide [From Reglan] Allergy (Verified 05/02/17 22:52) Other Penicillins Allergy (Verified 05/02/17 22:51) Other prednisolone Allergy (Verified 05/02/17 22:54) Other Tetracyclines Allergy (Verified 05/02/17 22:54) Other promethazine [From Phenergan] Adverse Reaction (Verified 05/05/17 18:46) Other Restless legs Procedures: - - Surgical preparation abdominal wall with excisional debridement skin, subcutaneous tissue, muscle, and fascia for necrotizing soft tissue infection. Removal of exposed infected mesh with fascial closure. Repair of recurrent ventral hernia. - Type of Care/Length of Stay Estimated LOS: Convalescent Care Less Than 30 days Type of Care Needed: Skilled Rehab Potential: Good Prognosis: Good - Additional Orders/Day of Discharge H&P will serve as current which was dated: 04/17/17 - Per Dr. Castellon Day of Discharge: 05/09/17 - Dietary and Speech Recommendations Dietitian Recommendations/Changes: Recommend diet change to 1800 Calorie Controlled. Eating well at meals, will d/c Glucerna on med pass. Continue with ONS: -Manjit 1pkt BID- ordered from pharmacy - Follow Up Care Primary Care Physician: Kvng Weeks [Primary Care Provider] - Please follow up with your Primary Care Physician in: 2 Weeks Please Follow Up With: Ceferino Castellon MD - call [phone] for appt time. When: 05/22/17 at the wound center.
--- NOTE | 2017-05-09 08:25 | TREXTCA.CO_ITS ---
- Diet 05/03/17 12:50 Diet:Carbohydrate Controlled - Routine Orders/Code Status Enema Type: Fleetz Enema Frequency: Daily PRN Suppository Type: Dulcolax 10mg Suppository Frequency: Daily PRN O2 Liters per Minute: 2 O2 Frequency: PRN Keep PO Greater than or Equal to (%): 90 Routine Lab Work: - - nursing to draw weekly CBC, CMP, ESR, and CRP. please fax results to the wound center at [phone]. Code Status: Full Code - Wound(s) mid low abd Wound Type: open surgical wound s/p debridement Dressing Change: Wet to Dry Dressing - Therapies Weight Bearing: Weight bearing as tolerated - Allergies/Procedures Done in Hospital Allergies/Adverse Reactions: Allergies Cephalosporins Allergy (Verified 05/02/17 22:52) Other clotrimazole Allergy (Verified 05/02/17 22:55) Other levofloxacin [From Levaquin] Allergy (Verified 05/04/17 11:39) Other metoclopramide [From Reglan] Allergy (Verified 05/02/17 22:52) Other Penicillins Allergy (Verified 05/02/17 22:51) Other prednisolone Allergy (Verified 05/02/17 22:54) Other Tetracyclines Allergy (Verified 05/02/17 22:54) Other promethazine [From Phenergan] Adverse Reaction (Verified 05/05/17 18:46) Other Restless legs Procedures: - - Surgical preparation abdominal wall with excisional debridement skin, subcutaneous tissue, muscle, and fascia for necrotizing soft tissue infection. Removal of exposed infected mesh with fascial closure. Repair of recurrent ventral hernia. - Type of Care/Length of Stay Estimated LOS: Convalescent Care Less Than 30 days Type of Care Needed: Skilled Rehab Potential: Good Prognosis: Good - Additional Orders/Day of Discharge H&P will serve as current which was dated: 04/17/17 - Per Dr. Castellon Day of Discharge: 05/09/17 - Dietary and Speech Recommendations Dietitian Recommendations/Changes: Recommend diet change to 1800 Calorie Controlled. Eating well at meals, will d/c Glucerna on med pass. Continue with ONS: -Manjit 1pkt BID- ordered from pharmacy - Follow Up Care Primary Care Physician: Kvng Weeks [Primary Care Provider] - Please follow up with your Primary Care Physician in: 2 Weeks Please Follow Up With: Ceferino Castellon MD - call [phone] for appt time. When: 05/22/17 at the wound center.
--- NOTE | 2017-05-09 08:25 | PCM.PROGNOTE ---
<Marielle Barfield - Last Filed: 05/09/17 08:32> Subjective: Patient seen and examined. Resting in bed. States she has minimal pain/soreness and area of abdominal wound. Nurse recently changed abdominal dressing. Denies fever, chills. Denies GI/ complaints. Denies further complaints. States she is ready to go back to [facility] facility. - Physical Exam General: Alert, Oriented x3, Cooperative, No apparent distress HEENT: Atraumatic, PERRLA, EOMI, Normocephalic Neck: Supple, No JVD, Negative Carotid Bruits Lungs: Clear to auscultation, Diminished Cardiovascular: Regular rate, Regular Rhythm, Normal S1, Normal S2, No murmurs Abdomen: Bowel Sounds Present, Soft, Non Tender, Obese, - - Abdominal dressing intact. Extremities: No clubbing, No cyanosis, No edema, Capillary Refill Less than 3 Seconds Skin: - - Abdominal dressing clean dry and intact. Musculoskeletal: No Tenderness to Palpation of Joints or Extremities Neurological: Cranial nerves II-XII grossly intact, Neuro grossly intact Psych/Mental Status: Normal Affect, Appropriate Vital Signs Temp Pulse Resp BP Pulse Ox 97.9 F 97 20 114/57 98 05/09/17 03:57 05/09/17 03:57 05/09/17 03:57 05/09/17 03:57 05/09/17 03:57 Oxygen Flow Rate 2 Oxygen Delivery Method Room Air Weight: 108 kg Body Mass Index (BMI) 43.9 Finger Stick Blood Glucose 113 Intake and Output for Last 24 Hours 05/07/17 05/08/17 05/09/17 23:59 23:59 23:59 Intake Total 20176 1180 Output Total 2049 1100 1600 Balance -32 566 -420 Microbiology Past 72 Hours 05/05/17 14:15 Gram Stain - Final Tissue - Abdominal Wound Culture - Final Proteus mirabilis Enterococcus faecalis Anaerobic Culture - Preliminary Checking for anaerobes, further studies to follow. 05/03/17 17:15 Gram Stain - Final Wound - Aerobic & Anaerobic Swabs Wound Culture - Final Proteus mirabilis Morganella morganii sp morgani Staphylococcus aureus Anaerobic Culture - Preliminary Presumptive B. fragilis group 05/04/17 11:15 Blood Culture - Preliminary Blood Culture (Wb) - Line Draw No growth in 48 hours. 05/04/17 11:14 Blood Culture - Preliminary Blood Culture (Wb) - Anticubital Left No growth in 48 hours. 05/04/17 12:23 Urine Culture - Final Urine, Clean Catch Culture exhibits no growth. Laboratory Tests Past 24 Hrs 05/08/17 05/09/17 05/09/17 15:10 05:50 05:50 WBC 5.6 RBC 3.47 L Hgb 8.9 L 8.8 L Hct 29.4 L 28.4 L MCV 81.8 MCH 25.4 L MCHC 31.0 L RDW 19.1 H RDW Differential 54.0 H Plt Count 215 MPV 10.9 Sodium 140 Potassium 3.9 Chloride 104 Carbon Dioxide 28.0 Anion Gap 8 BUN 20 H Creatinine 0.77 Estim Creat Clear Calc 39.63 Est GFR (MDRD) Af Amer 95 Est GFR (MDRD) Non-Af 78 BUN/Creatinine Ratio 26.1 H Glucose 98 Calcium 8.3 L POC Glucose 05/09/17 05/08/17 05/08/17 06:56 21:46 17:40 POC Glucose 110 152 H 138 H 05/08/17 05/08/17 13:09 11:00 POC Glucose 113 H 205 H Assessment/Plan Patient is a 72-year-old female admitted 05/03/2017 who underwent excisional debridement of nonhealing deep subcutaneous infected wound involving the lower abdomen. She has a past medical history of type 2 diabetes mellitus, morbid obesity, hypertension, coronary artery disease, GERD, hyperlipidemia, colonic diverticular disease, gout. 1. Nonhealing deep subcutaneous infected wound involving the anterior abdominal wall-patient underwent surgical preparation abdominal wall with excisional debridement skin, subcutaneous tissue, muscle, and fascia for necrotizing soft tissue infection as well as removal of exposed infected mesh and fascial closure and repair of recurrent ventral hernia 05/05/[address] Castellon. Preop cultures showed Proteus, Morganella morganii, Staphylococcus aureus, and B. fragilis. Operative cultures positive for Proteus. Patient will need further follow-up at wound center. Pre-albumin low at 8.1. Continue Ensure supplementation. Infectious disease consulted. Continue IV meropenem. Blood culture shows no growth. Continue Dakin's solution dressing changes to the abdominal wall. Patient will have wound VAC applied at [facility] per Dr. Castellon. Patient has right upper arm PICC for further IV antibiotic therapy at discharge. Discharge was placed per Dr. Castellon. Patient is stable for discharge to SNF from medical standpoint. 2. Diabetes mellitus type [id number] before meals at bedtime, sliding scale insulin. Continue metformin. Blood glucose has been stable. Patient does have a history of complications including diabetic gastroparesis. 3. Morbid obesity- BMI of 43.9, encouraged lifestyle and diet modifications. 4. Hypertension-continue home medication. Blood pressure stable. 5. Coronary artery disease-continue home medication. Denies chest pain. 6. GERD-continue PPI. 7. Hyperlipidemia-continue statin. 8. Colonic diverticular disease-stable. 9. Gout-continue allopurinol. 10. Acute on chronic iron deficiency anemia-continue iron supplementation. Slight drop in hemoglobin from patient's baseline as expected outcome following surgery. Hemoglobin 8.8. Iron Sucrose IV 200mg X1 during admission. Continue to monitor as outpatient as ordered by Dr. Castellon. DVT prophylaxis-Lovenox subcu <Santos Sevilla - Last Filed: 05/09/17 17:35> - Physical Exam General: Alert, Oriented x3, Cooperative HEENT: Atraumatic, PERRLA, EOMI, Normocephalic Neck: Supple, No JVD, Negative Carotid Bruits Lungs: Clear to auscultation, No rhonchi, No wheeze, No rales Cardiovascular: Regular rate, Regular Rhythm, Normal S1, Normal S2, No murmurs Abdomen: Bowel Sounds Present, Soft, Non Tender Extremities: No edema, Capillary Refill Less than 3 Seconds Skin: No rashes, No breakdown Musculoskeletal: No Tenderness to Palpation of Joints or Extremities Neurological: Cranial nerves II-XII grossly intact Psych/Mental Status: Normal Affect, Appropriate Vital Signs Temp Pulse Resp BP Pulse Ox 98.1 F 89 18 142/74 96 05/09/17 08:49 05/09/17 08:49 05/09/17 08:49 05/09/17 08:49 05/09/17 08:49 Oxygen Flow Rate 2 Oxygen Delivery Method Room Air Weight: 108 kg Body Mass Index (BMI) 43.9 Finger Stick Blood Glucose 113 Intake and Output for Last 24 Hours 05/07/17 05/08/17 05/09/17 23:59 23:59 23:59 Intake Total 2017 1665 1180 Output Total 2049 1100 1600 Balance -32 566 -420 Microbiology Past 72 Hours 05/05/17 14:15 Gram Stain - Final Tissue - Abdominal Wound Culture - Final Proteus mirabilis Enterococcus faecalis Anaerobic Culture - Final Bacteroides thetaiotaomicron Clostridium ramosum 05/03/17 17:15 Gram Stain - Final Wound - Aerobic & Anaerobic Swabs Wound Culture - Final Proteus mirabilis Morganella morganii sp morgani Staphylococcus aureus Anaerobic Culture - Final Bacteroides thetaiotaomicron 05/04/17 11:15 Blood Culture - Final Blood Culture (Wb) - Line Draw No growth in 5 days. 05/04/17 11:14 Blood Culture - Final Blood Culture (Wb) - Anticubital Left No growth in 5 days. Laboratory Tests Past 24 Hrs 05/09/17 05/09/17 05:50 05:50 WBC 5.6 RBC 3.47 L Hgb 8.8 L Hct 28.4 L MCV 81.8 MCH 25.4 L MCHC 31.0 L RDW 19.1 H RDW Differential 54.0 H Plt Count 215 MPV 10.9 Sodium 140 Potassium 3.9 Chloride 104 Carbon Dioxide 28.0 Anion Gap 8 BUN 20 H Creatinine 0.77 Estim Creat Clear Calc 39.63 Est GFR (MDRD) Af Amer 95 Est GFR (MDRD) Non-Af 78 BUN/Creatinine Ratio 26.1 H Glucose 98 Calcium 8.3 L POC Glucose 05/09/17 05/08/17 05/08/17 06:56 21:46 17:40 POC Glucose 110 152 H 138 H Assessment/Plan This patient was seen in conjunction with FLOOR POLISHER, Marielle. I have independently interviewed and examined the patient and reviewed pertinent history, examination findings, laboratory and plan of management. I have reviewed the note and concur fully with the documented findings with the few additional points. In brief, patient is admitted for chronic nonhealing deep subcutaneous infected wound over anterior abdominal wall, postsurgical complication of ventral hernia repair with mesh. Seen by ID doctor. Wound culture grows multiple organisms including Proteus, Morganella morganii, MSSA and Bacteroides fragilis. ID recommended IV meropenem for 1 week and weekly CBC, BMP and LFT. Follow-up ID doctor in 1-2 weeks. Acute on chronic iron deficiency anemia: IV sucrose ordered. On ferrous sulfate. Hemoglobin is stable between 8-9 g percent. Patient is being discharged to SNF. Discharge meds reconciliation done. Discharge summary to follow from surgical service. I have discussed my assessment with FLOOR POLISHERMarielle and orders have been reviewed.
--- NOTE | 2017-05-09 08:32 | PN_ITS ---
<Marielle Barfield - Last Filed: 05/09/17 08:32> Subjective: Patient seen and examined. Resting in bed. States she has minimal pain/ soreness and area of abdominal wound. Nurse recently changed abdominal dressing. Denies fever, chills. Denies GI/ complaints. Denies further complaints. States she is ready to go back to [facility] facility. - Physical Exam General: Alert, Oriented x3, Cooperative, No apparent distress HEENT: Atraumatic, PERRLA, EOMI, Normocephalic Neck: Supple, No JVD, Negative Carotid Bruits Lungs: Clear to auscultation, Diminished Cardiovascular: Regular rate, Regular Rhythm, Normal S1, Normal S2, No murmurs Abdomen: Bowel Sounds Present, Soft, Non Tender, Obese, - - Abdominal dressing intact. Extremities: No clubbing, No cyanosis, No edema, Capillary Refill Less than 3 Seconds Skin: - - Abdominal dressing clean dry and intact. Musculoskeletal: No Tenderness to Palpation of Joints or Extremities Neurological: Cranial nerves II-XII grossly intact, Neuro grossly intact Psych/Mental Status: Normal Affect, Appropriate Vital Signs Temp Pulse Resp BP Pulse Ox 97.9 F 97 20 114/57 98 05/09/17 03:57 05/09/17 03:57 05/09/17 03:57 05/09/17 03:57 05/09/17 03:57 Oxygen Flow Rate 2 Oxygen Delivery Method Room Air Weight: 108 kg Body Mass Index (BMI) 43.9 Finger Stick Blood Glucose 113 Intake and Output for Last 24 Hours 05/07/17 05/08/17 05/09/17 23:59 23:59 23:59 Intake Total 20176 1180 Output Total 2049 1100 1600 Balance -32 566 -420 Microbiology Past 72 Hours 05/05/17 14:15 Gram Stain - Final Tissue - Abdominal Wound Culture - Final Proteus mirabilis Enterococcus faecalis Anaerobic Culture - Preliminary Checking for anaerobes, further studies to follow. 05/03/17 17:15 Gram Stain - Final Wound - Aerobic & Anaerobic Swabs Wound Culture - Final Proteus mirabilis Morganella morganii sp morgani Staphylococcus aureus Anaerobic Culture - Preliminary Presumptive B. fragilis group 05/04/17 11:15 Blood Culture - Preliminary Blood Culture (Wb) - Line Draw No growth in 48 hours. 05/04/17 11:14 Blood Culture - Preliminary Blood Culture (Wb) - Anticubital Left No growth in 48 hours. 05/04/17 12:23 Urine Culture - Final Urine, Clean Catch Culture exhibits no growth. Laboratory Tests Past 24 Hrs 05/08/17 05/09/17 05/09/17 15:10 05:50 05:50 WBC 5.6 RBC 3.47 L Hgb 8.9 L 8.8 L Hct 29.4 L 28.4 L MCV 81.8 MCH 25.4 L MCHC 31.0 L RDW 19.1 H RDW Differential 54.0 H Plt Count 215 MPV 10.9 Sodium 140 Potassium 3.9 Chloride 104 Carbon Dioxide 28.0 Anion Gap 8 BUN 20 H Creatinine 0.77 Estim Creat Clear Calc 39.63 Est GFR (MDRD) Af Amer 95 Est GFR (MDRD) Non-Af 78 BUN/Creatinine Ratio 26.1 H Glucose 98 Calcium 8.3 L POC Glucose 05/09/17 05/08/17 05/08/17 06:56 21:46 17:40 POC Glucose 110 152 H 138 H 05/08/17 05/08/17 13:09 11:00 POC Glucose 113 H 205 H Assessment/Plan Patient is a 72-year-old female admitted 05/03/2017 who underwent excisional debridement of nonhealing deep subcutaneous infected wound involving the lower abdomen. She has a past medical history of type 2 diabetes mellitus, morbid obesity, hypertension, coronary artery disease, GERD, hyperlipidemia, colonic diverticular disease, gout. 1. Nonhealing deep subcutaneous infected wound involving the anterior abdominal wall-patient underwent surgical preparation abdominal wall with excisional debridement skin, subcutaneous tissue, muscle, and fascia for necrotizing soft tissue infection as well as removal of exposed infected mesh and fascial closure and repair of recurrent ventral hernia 05/05/[address] Castellon. Preop cultures showed Proteus, Morganella morganii, Staphylococcus aureus , and B. fragilis. Operative cultures positive for Proteus. Patient will need further follow-up at wound center. Pre-albumin low at 8.1. Continue Ensure supplementation. Infectious disease consulted. Continue IV meropenem. Blood culture shows no growth. Continue Dakin's solution dressing changes to the abdominal wall. Patient will have wound VAC applied at [facility] per Dr. Castellon. Patient has right upper arm PICC for further IV antibiotic therapy at discharge. Discharge was placed per Dr. Castellon. Patient is stable for discharge to SNF from medical standpoint. 2. Diabetes mellitus type 2-Yzed-Dszbt before meals at bedtime, sliding scale insulin. Continue metformin. Blood glucose has been stable. Patient does have a history of complications including diabetic gastroparesis. 3. Morbid obesity- BMI of 43.9, encouraged lifestyle and diet modifications. 4. Hypertension-continue home medication. Blood pressure stable. 5. Coronary artery disease-continue home medication. Denies chest pain. 6. GERD-continue PPI. 7. Hyperlipidemia-continue statin. 8. Colonic diverticular disease-stable. 9. Gout-continue allopurinol. 10. Acute on chronic iron deficiency anemia-continue iron supplementation. Slight drop in hemoglobin from patient's baseline as expected outcome following surgery. Hemoglobin 8.8. Iron Sucrose IV 200mg X1 during admission. Continue to monitor as outpatient as ordered by Dr. Castellon. DVT prophylaxis-Lovenox subcu <Santos Sevilla - Last Filed: 05/09/17 17:35> - Physical Exam General: Alert, Oriented x3, Cooperative HEENT: Atraumatic, PERRLA, EOMI, Normocephalic Neck: Supple, No JVD, Negative Carotid Bruits Lungs: Clear to auscultation, No rhonchi, No wheeze, No rales Cardiovascular: Regular rate, Regular Rhythm, Normal S1, Normal S2, No murmurs Abdomen: Bowel Sounds Present, Soft, Non Tender Extremities: No edema, Capillary Refill Less than 3 Seconds Skin: No rashes, No breakdown Musculoskeletal: No Tenderness to Palpation of Joints or Extremities Neurological: Cranial nerves II-XII grossly intact Psych/Mental Status: Normal Affect, Appropriate Vital Signs Temp Pulse Resp BP Pulse Ox 98.1 F 89 18 142/74 96 05/09/17 08:49 05/09/17 08:49 05/09/17 08:49 05/09/17 08:49 05/09/17 08:49 Oxygen Flow Rate 2 Oxygen Delivery Method Room Air Weight: 108 kg Body Mass Index (BMI) 43.9 Finger Stick Blood Glucose 113 Intake and Output for Last 24 Hours 05/07/17 05/08/17 05/09/17 23:59 23:59 23:59 Intake Total 2017 1665 1180 Output Total 2049 1100 1600 Balance -32 566 -420 Microbiology Past 72 Hours 05/05/17 14:15 Gram Stain - Final Tissue - Abdominal Wound Culture - Final Proteus mirabilis Enterococcus faecalis Anaerobic Culture - Final Bacteroides thetaiotaomicron Clostridium ramosum 05/03/17 17:15 Gram Stain - Final Wound - Aerobic & Anaerobic Swabs Wound Culture - Final Proteus mirabilis Morganella morganii sp morgani Staphylococcus aureus Anaerobic Culture - Final Bacteroides thetaiotaomicron 05/04/17 11:15 Blood Culture - Final Blood Culture (Wb) - Line Draw No growth in 5 days. 05/04/17 11:14 Blood Culture - Final Blood Culture (Wb) - Anticubital Left No growth in 5 days. Laboratory Tests Past 24 Hrs 05/09/17 05/09/17 05:50 05:50 WBC 5.6 RBC 3.47 L Hgb 8.8 L Hct 28.4 L MCV 81.8 MCH 25.4 L MCHC 31.0 L RDW 19.1 H RDW Differential 54.0 H Plt Count 215 MPV 10.9 Sodium 140 Potassium 3.9 Chloride 104 Carbon Dioxide 28.0 Anion Gap 8 BUN 20 H Creatinine 0.77 Estim Creat Clear Calc 39.63 Est GFR (MDRD) Af Amer 95 Est GFR (MDRD) Non-Af 78 BUN/Creatinine Ratio 26.1 H Glucose 98 Calcium 8.3 L POC Glucose 05/09/17 05/08/17 05/08/17 06:56 21:46 17:40 POC Glucose 110 152 H 138 H Assessment/Plan This patient was seen in conjunction with AUTOGLAZIER, Marielle. I have independently interviewed and examined the patient and reviewed pertinent history, examination findings, laboratory and plan of management. I have reviewed the note and concur fully with the documented findings with the few additional points. In brief, patient is admitted for chronic nonhealing deep subcutaneous infected wound over anterior abdominal wall, postsurgical complication of ventral hernia repair with mesh. Seen by ID doctor. Wound culture grows multiple organisms including Proteus, Morganella morganii, MSSA and Bacteroides fragilis. ID recommended IV meropenem for 1 week and weekly CBC, BMP and LFT. Follow-up ID doctor in 1-2 weeks. Acute on chronic iron deficiency anemia: IV sucrose ordered. On ferrous sulfate. Hemoglobin is stable between 8-9 g percent. Patient is being discharged to SNF. Discharge meds reconciliation done. Discharge summary to follow from surgical service. I have discussed my assessment with AUTOGLAZIERMarielle and orders have been reviewed.
[2017-05-09] MEDS: Calcium Carb/Vitamin D 1 TABLET Tablet PO (08:41)
[2017-05-09] MEDS: Ferrous Sulfate 325 MG Tablet PO (08:41)
[2017-05-09] MEDS: Multivitamins,Ther W-Minerals Tablet 1 TABLET PO (08:41)
[2017-05-09] MEDS: Allopurinol 300 MG Tablet PO (08:41)
[2017-05-09] MEDS: Pantoprazole Sodium 40 MG Tablet PO (08:41)
[2017-05-09] MEDS: Docusate Sodium 100 MG Capsule PO (08:41)
[2017-05-09] MEDS: Lisinopril 10 MG Tablet PO (08:41)
[2017-05-09] MEDS: Chlorhexidine 480 ML 15 ML PO (08:42)
[2017-05-09 08:49] VITALS: BP 142/74; PULSE 89; RESP 18; TEMP 36.7; O2SAT 96
--- NOTE | 2017-05-09 10:49 | CASEMGMT ---
Social Work Pt discharge by physician. PAS/RR completed and submitted in the HENS. Copies on the chart and SNF packet. Discharge instructions, medlist and scripts faxed to SNF. Copies on chart and originals in SNF packet. Transportation through [facility] in [place] via cot at 12:00-12:15. Notified SNF, RN and pt. Plan: [place] for continued rehabilitation. PAS/RR submitted in the HENS. Transport via cot through [facility] in [place] at 12:00-12:15. SANGEETHA OntiverosW
--- NOTE | 2017-05-09 13:10 | PCM.PN.SRG ---
Subjective: Postop #4 Patient is resting comfortably. She is anxious for discharge. - Physical Exam General: Alert, Oriented x3 HEENT: PERRLA, EOMI Neck: Supple Lungs: Clear to auscultation Cardiovascular: Regular rate, Regular Rhythm Abdomen: Soft, Non-Distended Extremities: No clubbing, No cyanosis, Edema - mild edema in the lower extremities. Skin: Ulcer/ Wound - abdominal wall wound is stable. Some granulation tissue seen. Continue Dakin's dressing changes. Will place VAC when sent to the F. Musculoskeletal: - - minimal tenderness right ribs. Neurological: Cranial nerves II-XII grossly intact Psych/Mental Status: Normal Affect, Appropriate Vital Signs Temp Pulse Resp BP Pulse Ox 98.1 F 89 18 142/74 96 05/09/17 08:49 05/09/17 08:49 05/09/17 08:49 05/09/17 08:49 05/09/17 08:49 Oxygen Flow Rate 2 Oxygen Delivery Method Room Air Weight: 108 kg Body Mass Index (BMI) 43.9 Finger Stick Blood Glucose 113 Intake and Output for Last 24 Hours 05/07/17 05/08/17 05/09/17 23:59 23:59 23:59 Intake Total 20176 1180 Output Total 2049 1100 1600 Balance -32 566 -420 Microbiology Past 72 Hours 05/03/17 17:15 Gram Stain - Final Wound - Aerobic & Anaerobic Swabs Wound Culture - Final Proteus mirabilis Morganella morganii sp morgani Staphylococcus aureus Anaerobic Culture - Final Bacteroides thetaiotaomicron 05/05/17 14:15 Gram Stain - Final Tissue - Abdominal Wound Culture - Final Proteus mirabilis Enterococcus faecalis Anaerobic Culture - Final Bacteroides thetaiotaomicron Clostridium ramosum 05/04/17 11:15 Blood Culture - Preliminary Blood Culture (Wb) - Line Draw No growth in 48 hours. 05/04/17 11:14 Blood Culture - Preliminary Blood Culture (Wb) - Anticubital Left No growth in 48 hours. Laboratory Tests Past 24 Hrs 05/08/17 05/09/17 05/09/17 15:10 05:50 05:50 WBC 5.6 RBC 3.47 L Hgb 8.9 L 8.8 L Hct 29.4 L 28.4 L MCV 81.8 MCH 25.4 L MCHC 31.0 L RDW 19.1 H RDW Differential 54.0 H Plt Count 215 MPV 10.9 Sodium 140 Potassium 3.9 Chloride 104 Carbon Dioxide 28.0 Anion Gap 8 BUN 20 H Creatinine 0.77 Estim Creat Clear Calc 39.63 Est GFR (MDRD) Af Amer 95 Est GFR (MDRD) Non-Af 78 BUN/Creatinine Ratio 26.1 H Glucose 98 Calcium 8.3 L POC Glucose 05/09/17 05/08/17 05/08/17 06:56 21:46 17:40 POC Glucose 110 152 H 138 H 05/08/17 13:09 POC Glucose 113 H Assessment/Plan 1. Nonhealing infected abdominal wall ulcer. 2. Infected prosthetic mesh abdominal wall. 3. Cellulitis abdominal wall. 4. Proteus mirabilis infection. 5. Diabetes mellitus. 6. Anemia of chronic disease. 7. Right rib pain, resolved. Continue Meropenem. Cultures show Proteus, Morganella morganii, Staphylococcus aureus, Enterococcus faecalis, Bacteroides thetaiotamicron and Clostridium ramosum. She will stay on Meropenem at the ECF. Continue Dakin's solution dressing changes to the abdominal wall until discharged to the ECF where the nurses can apply the VAC. The VAC will be changed three times per week at 150 mmHg continuous suction. Post discharge, the patient will followup at the Wound Center. She is scheduled for 05/22/17. When seen at the Wound Center, will reassess the antibiotics to determine if additional IV Meropenem is necessary. If there is a plateau in the healing process, can consider delayed closure with skin grafting. Prealbumin is very low at 8.1. Continue nutritional supplementation with protein to help the healing process. Hgb had improved from 8.8 to 10.1 after surgery and after the PRBC. She has stabilized at 8.8 at the time of discharge. Yesterday was 8.9. Discharge to [facility] today. Wrote scripts for Valium for spasm (30 tabs) and for Sutter for pain (50 tabs) and for Meropenem for 14 days.
--- NOTE | 2017-05-09 13:11 | DS.PCM_ITS ---
Discharge Date and Diagnosis Date of Admission: 05/03/17 Date of Discharge: 05/09/17 - Primary Discharge Diagnosis Nonhealing necrotizing infection ulcer abdominal wall. Infected prosthetic mesh abdominal wall. Cellulitis abdominal wall. Proteus mirabilis infection. Right rib pain. - Secondary Discharge Diagnosis Chronic Problems Recurrent ventral hernia. Diabetes mellitus. Anemia of chronic disease. Hospital Course and Treatment Imaging Results: Diagnostic Data Ribs X-Ray 05/04/17 10:05 IMPRESSION: No significant abnormalities are seen in the right ribs. Electronically Signed: Vaishali Palacios MD at 17:55 EDT Tel Direct: [phone], Service support , Abdomen/Pelvis CT 05/04/17 10:40 IMPRESSION: 1. Large abdominal wall defect probably representing a large soft tissue ulceration with a collection of gas but without definite abscess. 2. Hepatomegaly and splenomegaly. 3. Bilateral basilar airspace consolidation and/or atelectasis. 4. Sequela of coronary artery vascular disease. Electronically Signed: Dai Mac MD at 14:15 EDT , Service support , Consultations 05/04/17 07:04 Consult: Onc/Wound/superintendent division Routine Comment: Reason for Consult:: abdominal wound Infectious Diseases - Dr. Jonas. Hospitalist Group - Dr. Gómez, Dr. Sevilla, Dr. Ward. Operations: - - 05/05 17 - 1. Surgical preparation abdominal wall with excisional debridement skin, subcutaneous tissue, muscle, and fascia for necrotizing soft tissue infection (962 cm2). 2. Removal of exposed infected mesh with fascial closure. 3. Repair of recurrent ventral hernia. Procedures: Blood transfusion, EKG, PICC line placement, Wound vac placement - to be placed at the [facility]. Summary of Care Provided: The patient is a 72 year old F who presented with a nonhealing infected abdominal wall ulcer. She initially had surgery on 02/22/17 for an incarcerated hernia with small bowel obstruction. She underwent exploratory laparotomy and lysis of adhesions and ventral hernia repair and a partial panniculectomy to aid in wound closure. It was noted in the operative report that dissection of the abdominal wall was done below the mesh. Patient states she has had hernia repairs in the past with mesh. There was no mention of the mesh being removed at that time. Postdischarge, she developed some wound healing problems mostly inferiorly at the level of the remaining panniculus. She had developed an infected seroma and wound care was instituted with the VAC. A wound culture was obtained on 04/07/17 that showed Proteus mirabilis. She was placed on antibiotics with Levaquin. She had trouble tolerating that antibiotic and was changed to Invanz. She has complaints of abdominal wall pain. She denies any fever. The patient was admitted from the [facility] on 05/03/17 for more aggressive wound care and IV antibiotic therapy. She was started on Invanz and was changed to Meropenem. To help with the odor, wound care was started with Dakin' s dressing changes. The next day a CT Abdomen and Pelvis was done which showed a large abdominal wall defect with a collection of gas without definite abscess. No intra-abdominal process was seen. Also on that day she bumped her right side and complained of rib pain. Xray showed no fracture. The pain improved throughout her hospital stay. Hospitalist Group was consulted for medical management. Infectious Diseases was also consulted to help with antibiotic management. Because of the need for mcfp IV antibiotic therapy, a PICC line was placed. Her HgbA1c on admission was 5.7. Prealbumin was very low at 8.1. She needed nutritional supplementation with protein to help the healing process. Her Hgb was low preop at 8.8 because of her anemia of chronic disease. In preparation for surgery she was transfused PRBC. Hgb improved to 10.1 postop and drifted back down to 8.8 on the day of discharge. She has been evaluated by her PCP for her chronic anemia. She was taken to the OR on 05/05/17 where she underwent surgical preparation abdominal wall with excisional debridement skin, subcutaneous tissue, muscle, and fascia for necrotizing soft tissue infection (962 cm2) and removal of exposed infected mesh with fascial closure and repair of recurrent ventral hernia. She tolerated the procedure well. The VAC was placed on hold after surgery because of some oozing that was easily controlled with pressure. So the Dakin's dressing changes were continued. Operative cultures showed Proteus mirabilis, Morganella morganii, Staphylococcus aureus, Bacteroides thetaiotamicron, and Clostridium ramosum. She continued on her Meropenem. She had difficulty with the wound care due to its large size and increased discomfort at the time of the dressing changes. She needed intermittent IV analgesia. On the fourth postop day she tolerated po analgesia with the dressing change and was discharged back to the [facility] for further wound care with the VAC and IV antibiotic therapy with Meropenem. Wrote scripts for Valium for spasm (30 tabs) and Kinsman for pain (50 tabs) and for Meropenem for 14 days. She will continue nutritional supplementation with protein to help the healing process. For the Meropenem, she will have weekly labs drawn, (CBC, CMP, ESR, and CRP). Followup at the Wound Center on 05/22/17. Discharge Diet: Carb Control Diet, - - encourage nutritional supplementation with protein to help the healing process. Discharge Activity: May Not Drive, May Shower - at the time of the VAC dressing changes. May shower in (days): 2 - may shower on the days the vac is changed. May resume sexual activity in: No Restrictions Weight Bearing Status: Weight bearing as tolerated Additional Activity Instructions:: nursing to assist with the VAC changes to the abdominal wall at 150 mmHg continuous suction 3 times per week. Call your doctor if your incision/area has: Continuous Slow Oozing, Sudden Increased Bleeding, Increased Pain/ Swelling, Increased Redness, Foul Smelling Discharge, Swelling at the incision site Call your doctor if you observe: Fever of 101 or Higher, Coldness, Increased Pain, Shortness of breath, Chest pain, Calf discomfort, Uncontrolled pain Suture Line Care: - - vac changes three times per week. Change Dressing in (Days):: 2 - vac changes three times per week. Cleanse incision/area with: Soap & Water - may cleanse the wound with soap and water at the time of the vac dressing changes. Home Medications: Medications to take at Discharge Acetaminophen [Tylenol] 650 mg PO Q4H PRN 04/17/17 Allopurinol [Zyloprim] 300 mg PO DAILY 04/17/17 Aspirin 81 mg PO DAILY 04/17/17 Atorvastatin Calcium 10 mg PO QHS 04/17/17 Calcium Carbonate [Tums] 200 mg PO Q6H PRN 04/17/17 Calcium Carbonate/Vitamin D3 [Calcium 600-Vit D3 200 Tablet] 1 each PO BID 04/17 Chlorhexidine Gluconate [Peridex] 15 ml PO BID 04/17/17 Ferrous Sulfate 325 mg PO TIDCM 04/17/17 Ketoconazole [Nizoral Cream] 1 applic TOPICAL BID 04/17/17 Lisinopril [Zestril] 10 mg PO DAILY 04/17/17 Loperamide HCl [Imodium A-D] 2 mg PO Q8H PRN 04/17/17 Mirtazapine [Remeron] 15 mg PO QHS 04/17/17 Multivitamins,Ther W-Minerals [Multivitamin With Minerals] 1 tablet PO DAILY 03/26 Ondansetron HCl [Zofran] 4 mg PO Q8H PRN 04/17/17 Polyvinyl Alcohol [Artificial Tears] 1 drop EACH EYE PRN PRN 04/17/17 SimETHICONE [Mylicon] 80 mg PO 4X/DAY PRN 04/17/17 Cetyl Alc/Stearyl Alc/Pg/Sls [Cetaphil Cream] 1 applic TP BID 05/03/17 Docusate Sodium [Colace] 100 mg PO BID 05/03/17 L.acidoph,Paracasei, B.lactis [Probiotic] 1 each PO BID 05/03/17 Metformin HCl [Glucophage] 500 mg PO BIDCM 05/03/17 Mupirocin [Bactroban] 1 applic TOPICAL TID 05/03/17 Omeprazole 20 mg PO DAILY 05/03/17 Sodium Chloride 1 gm PO 4X/DAY PRN PRN 05/03/17 Diazepam [Valium] 5 mg PO 4X/DAY PRN PRN #30 tablet 05/09/17 Hydrocodone/Acetaminophen [Kinsman 5-325 Tablet] 1 - 2 each PO 4X/DAY PRN PRN #50 05/09/17 Meropenem [Merrem] 500 mg IV Q8 #42 vial 05/09/17 Following Prescrptions Were Given to Patient: Diazepam [Valium] 5 mg PO 4X/DAY PRN PRN #30 tablet PRN Reason: Spasms Hydrocodone/Acetaminophen [Kinsman 5-325 Tablet] 1 - 2 each PO 4X/DAY PRN PRN #50 PRN Reason: Pain Meropenem [Merrem] 500 mg IV Q8 #42 vial Primary Care Physician: Kvng Weeks [Primary Care Provider] - Please follow up with your Primary Care Physician in: 2 Weeks Please Follow Up With: Ceferino Castellon MD - call [phone] for appt time. When: 05/22/17 at the [facility]. [facility]position: [facility] facility Minutes spent on discharge:: 35 Patient Condition:: Stable Meaningful Use Info Meaningful Use Diagnoses (Choose all that apply): None applicable
== END 2017-05-09 12:15 | disposition skilled nursing facility (03) | DRG 908 ==
PROVIDERS: Hospitalist; Internal Medicine; Nurse Practitioner Family; Admitting Provider Surgery; Family Provider Family Medicine; PCP Family Medicine; Visit Provider Internal Medicine
DX: L76.82 Other postprocedural complications of skin and subcutaneous tissue (principal); L03.311 Cellulitis of abdominal wall; I96 Gangrene, not elsewhere classified; K31.84 Gastroparesis; T85.79XA Infection and inflammatory reaction due to other internal prosthetic devices, implants and grafts, initial encounter; E11.43 Type 2 diabetes mellitus with diabetic autonomic (poly)neuropathy; E66.01 Morbid (severe) obesity due to excess calories; Z68.41 Body mass index [BMI] 40.0-44.9, adult; B96.4 Proteus (mirabilis) (morganii) as the cause of diseases classified elsewhere; D63.8 Anemia in other chronic diseases classified elsewhere; L98.492 Non-pressure chronic ulcer of skin of other sites with fat layer exposed; K43.2 Incisional hernia without obstruction or gangrene; Z79.84 Long term (current) use of oral hypoglycemic drugs; Z79.82 Long term (current) use of aspirin; M10.9 Gout, unspecified; K57.30 Diverticulosis of large intestine without perforation or abscess without bleeding; K21.9 Gastro-esophageal reflux disease without esophagitis; I25.10 Atherosclerotic heart disease of native coronary artery without angina pectoris; I10 Essential (primary) hypertension; E78.5 Hyperlipidemia, unspecified; D50.9 Iron deficiency anemia, unspecified; B95.2 Enterococcus as the cause of diseases classified elsewhere; Y83.2 Surgical operation with anastomosis, bypass or graft as the cause of abnormal reaction of the patient, or of later complication, without mention of misadventure at the time of the procedure; Z79.899 Other long term (current) drug therapy; E11.9 Type 2 diabetes mellitus without complications; Z87.19 Personal history of other diseases of the digestive system; Z90.710 Acquired absence of both cervix and uterus; Z95.1 Presence of aortocoronary bypass graft
CPT/HCPCS: 11042; 11045; 36415; 36569; 71100; 74177; 80048; 80053; 80061; 81001; 82607; 82728; 82746; 82962; 83036; 83540; 83550; 83735; 84134; 85014; 85018; 85025; 85027; 85045; 85610; 85652; 86140; 86850; 86900; 86920; 86922; 87040; 87070; 87075; 87076; 87077; 87086; 87186; 87205; 87206; 88304; 93005; 97802; J1756; J2185; J7120; P9016; Q9967; A4216; J2405

== ENCOUNTER 2017-08-07 10:15 | Outpatient (RCR) | payer MEDICARE, OTHER, SELFPAY ==
[2017-07-10 01:04] VITALS: BP 161/67; PULSE 113; RESP 20; TEMP 36.8; BMI 103.2
[2017-07-11 08:26] VITALS: BP 140/73; PULSE 97; RESP 18; TEMP 35.8; BMI 103.2
--- NOTE | 2017-07-11 18:05 | PCM.WC.PN ---
Type of Wound Date of Service: 07/11/17 Chief Complaint: Nonhealing infected abdominal wall ulcer. History of Wound: Surgery 05/05/17 - Surgical preparation abdominal wall with excisional debridement skin, subcutaneous tissue, muscle, and fascia for necrotizing soft tissue infection (962 cm2) and removal of exposed infected mesh with fascial closure and repair of recurrent ventral hernia. Wound care - VAC. Operative culture - Proteus mirabilis, Enterococcus faecalis, Bacteroides thetaiotamicron, and Clostridium ramosum. She was placed on Meropenem IV and has finished them. The PICC line has been pulled and she has been discharged from the [facility]. Prealbumin from 05/03/17 was 8.1. She takes nutritional supplementation with protein to help the healing process. CT Abdomen/Pelvis from 05/04 showed a large abdominal wall ulcer. No intra-abdominal infection. Today she denies fever. Her appetite is good. She was having some abdominal wall skin crease intertrigo and she is using Nystatin powder for relief. Progress of Wound: Slightly improved. - Physical Exam Vital Signs Temp Pulse Resp BP 96.4 F L 97 18 140/73 H 07/11/17 08:26 07/11/17 08:26 07/11/17 08:26 07/11/17 08:26 Wound Measurements and Assessment - Nurse 1 - General Ulcer Measurement Start: 07/11/17 08:24 Freq: Status: Active Protocol: Activity Type Activity Date Activity User E-Sign Co-Sign Detail Recorded Client Recorded Date Recorded By Document 07/11/17 08:26 [id number] 07/11/17 08:46 07/11/17 08:26 Wound Center Nurse 1 [Ulcer Assessment Protocol: ROBERT.WD.LOC] #1 Midline Abdomen -Combined with other wound No -Current Size (cm) - Length 16.0 -Current Size (cm) - Width 16.2 -Current Size (cm) - Depth 2.2 -Total Square Cm 259.20 -Date of Last Picture (Recall this 07/11/17 field) -Photo Taken Yes -Epithelialization Small 1-33% -Tunneling No -Undermining/Tunneling No -Circular Undermining No -Classification - Thickness Full Thickness without Exposed Support Structure -Exudate Amt Large (67-100%) -Exudate Type Serosanguineous -Wound Margin Distinct, Outline Attached -Granulation Amt Large (67-100%) -Granulation Quality [place] -Slough/Fibrin Yes -Necrosis Amt Small (1-33%) -Necrotic Tissue Type Adherent Slough -Structure Exposed Fascia Fat Layer Exposed -Texture (Tamia-wound Skin Appearance) Excoriation Friable Rash -Moisture (Tamia-wound Skin Appearance No Abnormality ) -Color (Tamia-wound Skin Appearance) Erythema -Temperature (Tamia-wound Skin No Abnormality Appearance) (Pt Warm) -Tenderness on Palpation (Tamia-wound No Skin Appearance) -Ulcer Cleansing jett hex -Foul Odor after Cleansing No -Anesthetic Used 4% Lidocaine Solution [Edema Assessment] -Lower Limb Edema Present No WC - Nurse 2 - General Ulcer CM Notes Start: 07/11/17 08:24 Freq: Status: Active Protocol: Activity Type Activity Date Activity User E-Sign Co-Sign Detail Recorded Client Recorded Date Recorded By Document 07/11/17 09:24 [id number] 07/11/17 09:28 07/11/17 09:24 Wound Center Nurse 2 [Procedure/Treatment] #1 Midline Abdomen -Time 09:24 -Correct Patient Yes -Correct Side, Site, Position Yes -Correct Procedure Yes -Procedure Performed Yes -Type of Procedure Debridement -Clinical Debridement Subcutaneous -Post Debridement Size (cm) - Length 16.0 -Post Debridement Size (cm) - Width 16.3 -Post Debridement Size (cm) - Depth 2.5 -Total Square Cm 260.80 -Wound/Ulcer Outcome Not Healed -Ulcer Cleansing Rinsed/ Irrigated with Saline -Foul Odor after Cleansing No -Bioengineered Tissue No -Cetacaine [place] No -Bleeding Controlled with Pressure -Treatment Response Procedure Tolerated Well [See Physician Procedure note for Specifics] Pain Scale: 0-10 Numeric [Pain] -Is Patient Pain Free? Yes Debridement Note Post-Debridement Measurements/Treatment WC - Nurse 2 - General Ulcer CM Notes Start: 07/11/17 08:24 Freq: Status: Active Protocol: Activity Type Activity Date Activity User E-Sign Co-Sign Detail Recorded Client Recorded Date Recorded By Document 07/11/17 09:24 [id number] 07/11/17 09:28 07/11/17 09:24 Wound Center Nurse 2 #1 Midline Abdomen -Time 09:24 -Correct Patient Yes -Correct Side, Site, Position Yes -Correct Procedure Yes -Procedure Performed Yes -Type of Procedure Debridement -Clinical Debridement Subcutaneous -Post Debridement Size (cm) - Length 16.0 -Post Debridement Size (cm) - Width 16.3 -Post Debridement Size (cm) - Depth 2.5 -Total Square Cm 260.80 -Wound/Ulcer Outcome Not Healed -Ulcer Cleansing Rinsed/ Irrigated with Saline -Foul Odor after Cleansing No -Bioengineered Tissue No -Cetacaine [place] No -Bleeding Controlled with Pressure -Treatment Response Procedure Tolerated Well Pain Scale: 0-10 Numeric Is Patient Pain Free? Yes Wound debrided: #1 Midline abdominal wall. Laterality: Not Applicable Wound Grade/Stage: 3. Type of Debridement: Excisional debridement Anesthesia Used: 4% Lidocaine Solution Depth: Down to and including healthy tissue, in the subcutaneous layer Percentage of wound debrided: 100 Instrument Used: 7mm curette Tissue Removed: subcutaneous tissue. Severity: Fat Layer Exposed Amount of bleeding with debridement: Mild Bleeding Controlled with: Pressure Patient tolerated procedure well Assessment/Plan Assessment: 1. Nonhealing necrotizing infection ulcer abdominal wall. 2. Infected prosthetic mesh abdominal wall. 3. Recurrent ventral hernia. 4. Proteus mirabilis infection. 5. Diabetes mellitus. 6. Abdominal wall skin crease intertrigo. 7. s/p surgical preparation abdominal wall with excisional debridement skin, subcutaneous tissue, muscle, and fascia for necrotizing soft tissue infection (962 cm2) and removal of exposed infected mesh with fascial closure and repair of recurrent ventral hernia. Plan: Continue VAC. Continue abdominal wall binder. IV Meropenem for Proteus mirabilis, Enterococcus faecalis, Bacteroides thetaiotamicron, and Clostridium ramosum has been completed and the PICC line has been pulled. She has been discharged from the [facility] and is at home. Prealbumin from 05/03 was 8.1. She takes nutritional supplementation with protein to help the healing process. Continue PT for strengthening and ambulation. Followup 3 weeks. Discussed further operative debridement and skin grafting. She is interested in wound closure with skin grafting. Will schedule for next month. Will need another wound culture prior to the skin graft surgery. Continue Nystatin powder for the abdominal wall skin crease intertrigo.
--- NOTE | 2017-07-12 23:01 | PN.PCM_ITS ---
Type of Wound Date of Service: 07/11/17 Chief Complaint: Nonhealing infected abdominal wall ulcer. History of Wound: Surgery 05/05/17 - Surgical preparation abdominal wall with excisional debridement skin, subcutaneous tissue, muscle, and fascia for necrotizing soft tissue infection (962 cm2) and removal of exposed infected mesh with fascial closure and repair of recurrent ventral hernia. Wound care - VAC. Operative culture - Proteus mirabilis, Enterococcus faecalis, Bacteroides thetaiotamicron, and Clostridium ramosum. She was placed on Meropenem IV and has finished them. The PICC line has been pulled and she has been discharged from the [facility]. Prealbumin from 05/03/17 was 8.1. She takes nutritional supplementation with protein to help the healing process. CT Abdomen/Pelvis from 05/04 showed a large abdominal wall ulcer. No intra-abdominal infection. Today she denies fever. Her appetite is good. She was having some abdominal wall skin crease intertrigo and she is using Nystatin powder for relief. Progress of Wound: Slightly improved. - Physical Exam Vital Signs Temp Pulse Resp BP 96.4 F L 97 18 140/73 H 07/11/17 08:26 07/11/17 08:26 07/11/17 08:26 07/11/17 08:26 Wound Measurements and Assessment - Nurse 1 - General Ulcer Measurement Start: 07/11/17 08:24 Freq: Status: Active Protocol: Activity Type Activity Date Activity User E-Sign Co-Sign Detail Recorded Client Recorded Date Recorded By Document 07/11/17 08:26 [id number] 07/11/17 08:46 07/11/17 08:26 Wound Center Nurse 1 [Ulcer Assessment Protocol: ROBERT.WD.LOC] #1 Midline Abdomen -Combined with other wound No -Current Size (cm) - Length 16.0 -Current Size (cm) - Width 16.2 -Current Size (cm) - Depth 2.2 -Total Square Cm 259.20 -Date of Last Picture (Recall this 07/11/17 field) -Photo Taken Yes -Epithelialization Small 1-33% -Tunneling No -Undermining/Tunneling No -Circular Undermining No -Classification - Thickness Full Thickness without Exposed Support Structure -Exudate Amt Large (67-100%) -Exudate Type Serosanguineous -Wound Margin Distinct, Outline Attached -Granulation Amt Large (67-100%) -Granulation Quality [place] -Slough/Fibrin Yes -Necrosis Amt Small (1-33%) -Necrotic Tissue Type Adherent Slough -Structure Exposed Fascia Fat Layer Exposed -Texture (Tamia-wound Skin Appearance) Excoriation Friable Rash -Moisture (Tamia-wound Skin Appearance No Abnormality ) -Color (Tamia-wound Skin Appearance) Erythema -Temperature (Tamia-wound Skin No Abnormality Appearance) (Pt Warm) -Tenderness on Palpation (Tamia-wound No Skin Appearance) -Ulcer Cleansing jett hex -Foul Odor after Cleansing No -Anesthetic Used 4% Lidocaine Solution [Edema Assessment] -Lower Limb Edema Present No WC - Nurse 2 - General Ulcer CM Notes Start: 07/11/17 08:24 Freq: Status: Active Protocol: Activity Type Activity Date Activity User E-Sign Co-Sign Detail Recorded Client Recorded Date Recorded By Document 07/11/17 09:24 [id number] 07/11/17 09:28 07/11/17 09:24 Wound Center Nurse 2 [Procedure/Treatment] #1 Midline Abdomen -Time 09:24 -Correct Patient Yes -Correct Side, Site, Position Yes -Correct Procedure Yes -Procedure Performed Yes -Type of Procedure Debridement -Clinical Debridement Subcutaneous -Post Debridement Size (cm) - Length 16.0 -Post Debridement Size (cm) - Width 16.3 -Post Debridement Size (cm) - Depth 2.5 -Total Square Cm 260.80 -Wound/Ulcer Outcome Not Healed -Ulcer Cleansing Rinsed/ Irrigated with Saline -Foul Odor after Cleansing No -Bioengineered Tissue No -Cetacaine [place] No -Bleeding Controlled with Pressure -Treatment Response Procedure Tolerated Well [See Physician Procedure note for Specifics] Pain Scale: 0-10 Numeric [Pain] -Is Patient Pain Free? Yes Debridement Note Post-Debridement Measurements/Treatment WC - Nurse 2 - General Ulcer CM Notes Start: 07/11/17 08:24 Freq: Status: Active Protocol: Activity Type Activity Date Activity User E-Sign Co-Sign Detail Recorded Client Recorded Date Recorded By Document 07/11/17 09:24 [id number] 07/11/17 09:28 07/11/17 09:24 Wound Center Nurse 2 #1 Midline Abdomen -Time 09:24 -Correct Patient Yes -Correct Side, Site, Position Yes -Correct Procedure Yes -Procedure Performed Yes -Type of Procedure Debridement -Clinical Debridement Subcutaneous -Post Debridement Size (cm) - Length 16.0 -Post Debridement Size (cm) - Width 16.3 -Post Debridement Size (cm) - Depth 2.5 -Total Square Cm 260.80 -Wound/Ulcer Outcome Not Healed -Ulcer Cleansing Rinsed/ Irrigated with Saline -Foul Odor after Cleansing No -Bioengineered Tissue No -Cetacaine [place] No -Bleeding Controlled with Pressure -Treatment Response Procedure Tolerated Well Pain Scale: 0-10 Numeric Is Patient Pain Free? Yes Wound debrided: #1 Midline abdominal wall. Laterality: Not Applicable Wound Grade/Stage: 3. Type of Debridement: Excisional debridement Anesthesia Used: 4% Lidocaine Solution Depth: Down to and including healthy tissue, in the subcutaneous layer Percentage of wound debrided: 100 Instrument Used: 7mm curette Tissue Removed: subcutaneous tissue. Severity: Fat Layer Exposed Amount of bleeding with debridement: Mild Bleeding Controlled with: Pressure Patient tolerated procedure well Assessment/Plan Assessment: 1. Nonhealing necrotizing infection ulcer abdominal wall. 2. Infected prosthetic mesh abdominal wall. 3. Recurrent ventral hernia. 4. Proteus mirabilis infection. 5. Diabetes mellitus. 6. Abdominal wall skin crease intertrigo. 7. s/p surgical preparation abdominal wall with excisional debridement skin, subcutaneous tissue, muscle, and fascia for necrotizing soft tissue infection (962 cm2) and removal of exposed infected mesh with fascial closure and repair of recurrent ventral hernia. Plan: Continue VAC. Continue abdominal wall binder. IV Meropenem for Proteus mirabilis, Enterococcus faecalis, Bacteroides thetaiotamicron, and Clostridium ramosum has been completed and the PICC line has been pulled. She has been discharged from the [facility] and is at home. Prealbumin from 05/03 was 8.1. She takes nutritional supplementation with protein to help the healing process. Continue PT for strengthening and ambulation. Followup 3 weeks. Discussed further operative debridement and skin grafting. She is interested in wound closure with skin grafting. Will schedule for next month. Will need another wound culture prior to the skin graft surgery. Continue Nystatin powder for the abdominal wall skin crease intertrigo.
[2017-08-07 10:54] VITALS: RESP 18; TEMP 36.1; BMI 103.2
--- NOTE | 2017-08-07 21:41 | PCM.WC.PN ---
Type of Wound Date of Service: 08/07/17 Chief Complaint: Nonhealing infected abdominal wall ulcer. History of Wound: Surgery 05/05/17 - Surgical preparation abdominal wall with excisional debridement skin, subcutaneous tissue, muscle, and fascia for necrotizing soft tissue infection (962 cm2) and removal of exposed infected mesh with fascial closure and repair of recurrent ventral hernia. Wound care - VAC. Operative culture - Proteus mirabilis, Enterococcus faecalis, Bacteroides thetaiotamicron, and Clostridium ramosum. She was placed on Meropenem IV and has finished them. The PICC line has been pulled and she has been discharged from the [facility]. Prealbumin from 05/03/17 was 8.1. She takes nutritional supplementation with protein to help the healing process. CT Abdomen/Pelvis from 05/04 showed a large abdominal wall ulcer. No intra-abdominal infection. Today she denies fever. Her appetite is good. She was having some abdominal wall skin crease intertrigo and she is using Nystatin powder for relief. Progress of Wound: Slightly improved. - Physical Exam Vital Signs Temp Pulse Resp BP 96.9 F L 97 18 140/73 H 08/07/17 10:54 07/11/17 08:26 08/07/17 10:54 07/11/17 08:26 Debridement Note Post-Debridement Measurements/Treatment WC - Nurse 2 - General Ulcer CM Notes Start: 07/11/17 08:24 Freq: Status: Active Protocol: Activity Type Activity Date Activity User E-Sign Co-Sign Detail Recorded Client Recorded Date Recorded By Document 07/11/17 09:24 JF [id number] 07/11/17 09:28 Document 08/07/17 11:31 [id number] 08/07/17 11:32 07/11/17 08/07/17 09:24 11:31 Wound Center Nurse 2 #1 Midline Abdomen -Time 09:24 11:31 -Correct Patient Yes Yes -Correct Side, Site, Position Yes Yes -Correct Procedure Yes Yes -Procedure Performed Yes Yes -Type of Procedure Debridement Debridement -Clinical Debridement Subcutaneous Subcutaneous -Post Debridement Size (cm) - Length 16.0 13.3 -Post Debridement Size (cm) - Width 16.3 13.1 -Post Debridement Size (cm) - Depth 2.5 0.1 -Total Square Cm 260.80 174.23 -Wound/Ulcer Outcome Not Healed Not Healed -Ulcer Cleansing Rinsed/ Rinsed/ Irrigated with Irrigated with Saline Saline -Foul Odor after Cleansing No No -Bioengineered Tissue No No -Cetacaine [place] No No -Bleeding Controlled with Pressure Pressure -Treatment Response Procedure Procedure Tolerated Well Tolerated Well Pain Scale: 0-10 Numeric Is Patient Pain Free? Yes Yes Wound debrided: #1 Midline abdominal wall. Laterality: Not Applicable Wound Grade/Stage: 3. Type of Debridement: Excisional debridement Anesthesia Used: 4% Lidocaine Solution Depth: Down to and including healthy tissue, in the subcutaneous layer Percentage of wound debrided: 100 Instrument Used: 7mm curette Tissue Removed: subcutaneous tissue. Severity: Fat Layer Exposed Amount of bleeding with debridement: Mild Bleeding Controlled with: Pressure Patient tolerated procedure well Assessment/Plan Assessment: 1. Nonhealing necrotizing infection ulcer abdominal wall. 2. Infected prosthetic mesh abdominal wall. 3. Recurrent ventral hernia. 4. Proteus mirabilis infection. 5. Diabetes mellitus. 6. Abdominal wall skin crease intertrigo. 7. s/p surgical preparation abdominal wall with excisional debridement skin, subcutaneous tissue, muscle, and fascia for necrotizing soft tissue infection (962 cm2) and removal of exposed infected mesh with fascial closure and repair of recurrent ventral hernia. Plan: Continue VAC. Continue abdominal wall binder. IV Meropenem for Proteus mirabilis, Enterococcus faecalis, Bacteroides thetaiotamicron, and Clostridium ramosum has been completed and the PICC line has been pulled. She has been discharged from the [facility] and is at home. Prealbumin from 05/03 was 8.1. She takes nutritional supplementation with protein to help the healing process. Continue PT for strengthening and ambulation. Followup 3 weeks. Discussed further operative debridement and skin grafting. She is interested in wound closure with skin grafting. Will schedule for next month. Will need another wound culture prior to the skin graft surgery. Continue Nystatin powder for the abdominal wall skin crease intertrigo.
== END 2017-08-09 23:59 ==
LOC: WC 10:15
PROVIDERS: Family Provider Family Medicine; PCP Family Medicine; Visit Provider Surgery
DX: L98.492 Non-pressure chronic ulcer of skin of other sites with fat layer exposed (principal); K43.2 Incisional hernia without obstruction or gangrene; E11.9 Type 2 diabetes mellitus without complications; T85.79XA Infection and inflammatory reaction due to other internal prosthetic devices, implants and grafts, initial encounter; L76.82 Other postprocedural complications of skin and subcutaneous tissue; I96 Gangrene, not elsewhere classified; Y83.8 Other surgical procedures as the cause of abnormal reaction of the patient, or of later complication, without mention of misadventure at the time of the procedure
CPT/HCPCS: 11042; 11045; 87070; 87075; 87077; 87186; 87205; 97606

== ENCOUNTER 2017-08-21 09:30 | Outpatient (RCR) | payer MEDICARE, OTHER, SELFPAY ==
[2017-07-11 08:26] VITALS: BP 140/73
[2017-08-10 00:42] VITALS: PULSE 97; RESP 18; TEMP 36.1
[2017-08-21 09:45] VITALS: BP 149/69; PULSE 79; RESP 18; TEMP 36.1; BMI 103.2
--- NOTE | 2017-08-21 16:36 | PN.PCM_ITS ---
Type of Wound Date of Service: 08/21/17 Chief Complaint: Nonhealing infected abdominal wall ulcer. History of Wound: Surgery 05/05/17 - Surgical preparation abdominal wall with excisional debridement skin, subcutaneous tissue, muscle, and fascia for necrotizing soft tissue infection (962 cm2) and removal of exposed infected mesh with fascial closure and repair of recurrent ventral hernia. Wound care - VAC. Operative culture - Proteus mirabilis, Enterococcus faecalis, Bacteroides thetaiotamicron, and Clostridium ramosum. She was placed on Meropenem IV and has finished them. The PICC line has been pulled and she has been discharged from the [facility]. Prealbumin from 05/03/17 was 8.1. She takes nutritional supplementation with protein to help the healing process. CT Abdomen/Pelvis from 05/04 showed a large abdominal wall ulcer. No intra-abdominal infection. Today she denies fever. Her appetite is good. She was having some abdominal wall skin crease intertrigo and she is using Nystatin powder for relief. Progress of Wound: Slightly improved. - Physical Exam Vital Signs Temp Pulse Resp BP 96.9 F L 79 18 149/69 H 08/21/17 09:45 08/21/17 09:45 08/21/17 09:45 08/21/17 09:45 Wound Measurements and Assessment WC - Nurse 1 - General Ulcer Measurement Start: 08/21/17 09:45 Freq: Status: Active Protocol: Activity Type Activity Date Activity User E-Sign Co-Sign Detail Recorded Client Recorded Date Recorded By Document 08/21/17 09:45 [facility] [id number] 08/21/17 09:57 [facility] 08/21/17 09:45 Wound Center Nurse 1 [Ulcer Assessment Protocol: WC.WD.LOC] #1 Midline Abdomen -Combined with other wound No -Current Size (cm) - Length 12.2 -Current Size (cm) - Width 10.5 -Current Size (cm) - Depth 0.1 -Total Square Cm 128.10 -Photo Taken No -Epithelialization Small 1-33% -Tunneling No -Undermining/Tunneling No -Exudate Amt Medium (34-66%) -Exudate Type Serosanguineous -Wound Margin Distinct, Outline Attached -Granulation Amt Large (67-100%) -Granulation Quality [place] -Slough/Fibrin No -Necrosis Amt None Present (0 %) -Structure Exposed None/Limited to Skin Breakdown -Texture (Tamia-wound Skin Appearance) Scarring -Moisture (Tamia-wound Skin Appearance Assessed ) -Color (Tamia-wound Skin Appearance) Assessed -Temperature (Tamia-wound Skin No Abnormality Appearance) (Pt Warm) -Tenderness on Palpation (Tamia-wound Yes Skin Appearance) -Ulcer Cleansing Rinsed/ Irrigated with Saline -Foul Odor after Cleansing No -Anesthetic Used 4% Lidocaine Solution - Nurse 2 - General Ulcer CM Notes Start: 08/21/17 09:45 Freq: Status: Active Protocol: Activity Type Activity Date Activity User E-Sign Co-Sign Detail Recorded Client Recorded Date Recorded By Document 08/21/17 10:27 JF [id number] 08/21/17 10:28 08/21/17 10:27 Wound Center Nurse 2 [Procedure/Treatment] -Time 10:27 -Correct Patient Yes -Correct Side, Site, Position Yes -Correct Procedure Yes -Procedure Performed Yes -Type of Procedure Debridement -Clinical Debridement Subcutaneous -Post Debridement Size (cm) - Length 12.3 -Post Debridement Size (cm) - Width 10.6 -Post Debridement Size (cm) - Depth 0.2 -Total Square Cm 130.38 -Wound/Ulcer Outcome Not Healed -Ulcer Cleansing Rinsed/ Irrigated with Saline -Foul Odor after Cleansing No -Bioengineered Tissue No -Bleeding Controlled with Pressure -Treatment Response Procedure Tolerated Well [See Physician Procedure note for Specifics] Pain Scale: 0-10 Numeric [Pain] -Is Patient Pain Free? Yes Debridement Note Post-Debridement Measurements/Treatment - Nurse 2 - General Ulcer CM Notes Start: 08/21/17 09:45 Freq: Status: Active Protocol: Activity Type Activity Date Activity User E-Sign Co-Sign Detail Recorded Client Recorded Date Recorded By Document 08/21/17 10:27 JF [id number] 08/21/17 10:28 08/21/17 10:27 Wound Center Nurse 2 #1 Midline Abdomen -Time 10:27 -Correct Patient Yes -Correct Side, Site, Position Yes -Correct Procedure Yes -Procedure Performed Yes -Type of Procedure Debridement -Clinical Debridement Subcutaneous -Post Debridement Size (cm) - Length 12.3 -Post Debridement Size (cm) - Width 10.6 -Post Debridement Size (cm) - Depth 0.2 -Total Square Cm 130.38 -Wound/Ulcer Outcome Not Healed -Ulcer Cleansing Rinsed/ Irrigated with Saline -Foul Odor after Cleansing No -Bioengineered Tissue No -Bleeding Controlled with Pressure -Treatment Response Procedure Tolerated Well Pain Scale: 0-10 Numeric Is Patient Pain Free? Yes Wound debrided: #1 Midline abdominal wall. Laterality: Not Applicable Wound Grade/Stage: 3. Type of Debridement: Excisional debridement Anesthesia Used: 4% Lidocaine Solution Depth: Down to and including healthy tissue, in the subcutaneous layer Percentage of wound debrided: 100 Instrument Used: 7mm curette Tissue Removed: subcutaneous tissue. Severity: Fat Layer Exposed Amount of bleeding with debridement: Mild Bleeding Controlled with: Pressure Patient tolerated procedure well Assessment/Plan Assessment: 1. Nonhealing necrotizing infection ulcer abdominal wall. 2. Infected prosthetic mesh abdominal wall. 3. Recurrent ventral hernia. 4. Proteus mirabilis infection. 5. Diabetes mellitus. 6. Abdominal wall skin crease intertrigo. 7. s/p surgical preparation abdominal wall with excisional debridement skin, subcutaneous tissue, muscle, and fascia for necrotizing soft tissue infection (962 cm2) and removal of exposed infected mesh with fascial closure and repair of recurrent ventral hernia. Plan: Continue VAC. Continue abdominal wall binder. IV Meropenem for Proteus mirabilis, Enterococcus faecalis, Bacteroides thetaiotamicron, and Clostridium ramosum has been completed and the PICC line has been pulled. She has been discharged from the [facility] and is at home. Prealbumin from 05/03 was 8.1. She takes nutritional supplementation with protein to help the healing process. Continue PT for strengthening and ambulation. Followup 3 weeks. Discussed further operative debridement and skin grafting. She is interested in wound closure with skin grafting. Will schedule for next month. Will need another wound culture prior to the skin graft surgery. Continue Nystatin powder for the abdominal wall skin crease intertrigo.
== END 2017-09-06 23:59 ==
LOC: WC 09:30
PROVIDERS: Family Provider Family Medicine; PCP Family Medicine; Visit Provider Surgery
DX: T81.4XXA Infection following a procedure, initial encounter (principal); B99.8 Other infectious disease; E11.9 Type 2 diabetes mellitus without complications; B96.4 Proteus (mirabilis) (morganii) as the cause of diseases classified elsewhere
CPT/HCPCS: 11042; 11045; 97606

== ENCOUNTER 2017-08-31 10:12 | Inpatient (IN) | payer MEDICARE, OTHER, SELFPAY ==
[2017-08-21 11:37] LABS: Hematocrit 38.9 % (37-47); Hemoglobin 11.4 g/dl (12.0-15.0); Mean Corp Hgb Conc 29.3 g/gl (32-36); Mean Corpuscular Hgb 23.9 pg (27.0-32.0); Mean Corpuscular Volume 81.6 fL (81-99); Mean Platelet Vol. 10.3 fl (6.2-12.0); Platelet Count 157 K/mm3 (150-450); RBC Distribution Width CV 15.7 % (11.6-14.6); RBC Distribution Width SD 46.7 fl (35.1-43.9); Red Blood Count 4.77 M/mm3 (4.2-5.4); Scan Indicated on CBC? Y/N NO; White Blood Count 4.5 K/mm3 (4.4-11.0)
[2017-08-21 12:12] LABS: Hemoglobin A1c 6.5 % (4.2-6.3)
[2017-08-21 12:19] LABS: Anion Gap 8 (5-15); BUN 11 mg/dL (7-18); BUN/Creat Ratio 12.2 RATIO (10-20); Calcium,Total 9.2 mg/dL (8.5-10.1); Chloride 103 mmol/L (98-107); EST Glomerular Filtration Rate 65 mL/min (>60); Est Glom Filt Rate - Afr Amer 79 mL/min (>60); Glucose 124 mg/dL (74-106); Potassium 3.8 mmol/L (3.5-5.1); Prealbumin 26.8 mg/dL (20.0-40.0); Sodium Level 139 mmol/L (136-145)
--- NOTE | 2017-08-28 19:50 | PCM.HP.BLA ---
History and Physical Date of Admission: 08/29/17 History of Present Illness Chief Complaint: Nonhealing infected diabetic ulcer lower anterior abdominal wall. History of Wound: 72 year old woman presents with a nonhealing diabetic abdominal wall ulcer. She initially had surgery on 02/22/17 for an incarcerated hernia with small bowel obstruction. She underwent exploratory laparotomy and lysis of adhesions and ventral hernia repair and a partial panniculectomy to aid in wound closure. It was noted in the operative report that dissection of the abdominal wall was done below the mesh. Patient states she has had hernia repairs in the past with mesh. There was no mention of the mesh being removed at that time. Postdischarge, she developed some wound healing problems mostly inferiorly at the level of the remaining panniculus. She had developed an infected seroma and wound care was instituted with the VAC. A wound culture was obtained on 04/07/17 that showed Proteus mirabilis and she was started on Levaquin. The ulcer did not improve, and she was taken to the OR on 05/05/17 where she underwent surgical preparation abdominal wall with excisional debridement skin, subcutaneous tissue, muscle, and fascia for necrotizing soft tissue infection (962 cm2) and removal of exposed infected mesh with fascial closure and repair of recurrent ventral hernia. Cultures showed Proteus mirabilis, Morganella morganii, Enterococcus faecalis, Staphylococcus aureus, and Anaerobes. Antibiotics were instituted and the VAC. The ulcer stabilized and decreased in size. The antibiotics have been completed and she presents today for further debridement with skin grafting. She denies any fever. Her recent Hgb A1c was 6.5. Her recent Prealbumin was 26.8. Past Medical History Past Medical History: Diabetes mellitus. Hyperlipidemia. Hypertension. Coronary artery disease. Chest pain. Recurrent ventral hernia with small bowel obstruction. Obesity. GERD. Diverticular disease. Gout. Diabetic gastroparesis. Surgical History: cholecystectomy, coronary bypass surgery - 1999, herniorrhaphy - ventral hernia with mesh in 2014, hysterectomy, - - Exploratory laparotomy with lysis of adhesions and recurrent ventral hernia repair and partial panniculectomy - 02/22/17. Surgical preparation abdominal wall with excisional debridement skin, subcutaneous tissue, muscle, and fascia for necrotizing soft tissue infection (962 cm2) and removal of exposed infected mesh with fascial closure and repair of recurrent ventral hernia - 05/05/17 Description of Surgical Findings:: Allergies/Adverse Reactions: Allergies Cephalosporins Allergy (Verified 05/02/17 22:52) Other clotrimazole Allergy (Verified 05/02/17 22:55) Other metoclopramide [From Reglan] Allergy (Verified 05/02/17 22:52) Other Penicillins Allergy (Verified 05/02/17 22:51) Other prednisolone Allergy (Verified 05/02/17 22:54) Other promethazine [From Phenergan] Allergy (Verified 05/02/17 22:53) Other Tetracyclines Allergy (Verified 05/02/17 22:54) Other Home Medications: Tylenol. Zyloprim. Xanax. Aspirin. Tums. Peridex. Ferrous sulfate. Diflucan. Cleocin - stopped for diarrhea. Fosinopril. [place]. Nizoral. Imodium. Glucophage. MVI. Zofran. Protonix. Artificial tears. Mylicon. Zocor. - Family History Paternal Heart Disease Lives: [place] Smoking Status: Never smoker Tobacco Use: Non-smoker Alcohol: None Drugs: None Review of Systems Constitutional: Reports: Malaise, Weakness, Fatigue. Denies: Fever Eyes: Denies: Cataracts HEENT: Denies: Nasal Congestion, Sore Throat Cardiovascular: Reports: Chest Pain Respiratory: Denies: Cough, Hemoptysis Gastrointestinal: Reports: Abdominal Pain. Denies: Constipation, Diarrhea, Nausea, Vomiting Genitourinary: Denies: Frequency, Hematuria Musculoskeletal: Reports: Back Pain, Muscle pain. Denies: Foot Pain, Hand Pain, Leg Pain, Neck Pain Skin: Reports: Wounds - large nonhealing infected abdominal wall ulcer. Neurological: Denies: Headaches Psychiatric: Denies: Anxiety, Depression Endocrine: Reports: - - has diabetes mellitus.. Denies: Polydipsia, Polyuria Hematologic/ Lymphatic: Denies: Easy Bruising, Hx of blood clot - Physical Exam General: Alert, Oriented x3 HEENT: PERRLA, EOMI Neck: Supple Lungs: Clear to auscultation Cardiovascular: Regular rate, Regular Rhythm Abdomen: Soft, Non-Distended, Obese, Tender - in the nonhealing infected ulcer lower anterior abdominal wall in central panniculus. Good granulation tissue seen. No exudate. No evidence of hernia. Measures 12 x 11 cm. Extremities: No clubbing, No cyanosis, No Calf Tenderness, Diminished Peripheral Pulses, Edema - in lower extremities. Skin: Ulcer/ Wound - large abdominal wall ulcer inferiorly in the central panniculus. No purulent drainage. Good granulation tissue seen. Measures 12 x 11 cm. Lymphatic: No Cervical, Supraclavicular, or Inguinal Adenopathy Neurological: Cranial nerves II-XII grossly intact Psych/Mental Status: Normal Affect, Appropriate Assessment/Plan Assessment: 1. Nonhealing infected diabetic ulcer lower anterior abdominal wall. 2. Diabetes mellitus. Plan: Recommend further operative debridement and skin grafting to close the abdominal wall defect. Will apply the VAC to the skin graft for an additional week or two. Tissue debrided will be sent to Microbiology for culture as well as to Pathology for analysis to rule out carcinoma. A positive culture may necessitate antibiotic modification. Will treat perioperatively with Vancomycin and Meropenem. Her Prealbumin preop was 26.8. Encourage nutritional supplementation with protein to help the healing process. Surgery will be done under general anesthesia with an surgical observation overnight stay in the hospital. Patient was informed of the risks and complications of the procedure including alternatives to surgery. These were discussed with her personally. She voices understanding and wishes to proceed.
[2017-08-29] VITALS (13 sets, daily range): BP systolic 114–157; BP diastolic 45–78; PULSE 62–78; RESP 14–20; TEMP 36.1–36.9; O2SAT 95–100; BMI 40.9
[2017-08-29 09:36] LABS: Bedside Glucose 107 mg/dL (70-110)
--- NOTE | 2017-08-29 10:00 | UL_PTH ---
PATIENT: ALPHONSO PHILLIP LOC: MS2 U#:[id number] AGE/SX: 72/F ROOM: MS213 RE08/31/[address]: Wiliam Beltran MD : [id number] BED: 1 DIS: 08/31/2017 SPEC #: [id number] RECD: 08/29/17 15:44 STATUS: ANSLEY VEL #: [id number] LACI: 08/29/17 10:[address]: Ceferino Castellon DEPT: SURGICAL PATHOLOGY RECD BY: Alejandro Fermin ENTERED: 08/30/17 06:52 SP TYPE: ULCER OTHR DR: Dr. Rigo August, DO Dr. Kvng Weeks MD Tissues: ULCER Procedures: Surgery Specimen Level III HEADER OPERATION: Excisional debridement, lesion, abdominal wall with skin grafting PRE-OP DIAGNOSIS: Nonhealing diabetic ulcer lower anterior wall TISSUE SUBMITTED: Abdominal wall ulcer MICROSCOPIC DIAGNOSIS Abdominal wall ulcer, debridement: A piece of skin with underlying tissue with focal ulceration, acute and chronic inflammation and granulation tissue reaction. AM:litzy 08/31/17 MICROSCOPIC DESCRIPTION Slides are reviewed. GROSS DESCRIPTION Received in fixative is one container labeled with the patient's name and designated abdominal wall ulcer. The specimen consists of an irregular fragment of pink-yellow indurated soft tissue measuring 10 x 8 x 2 cm. An ellipse of melton skin is present along one edge measuring 2 x 0.5 cm. Serial sections do not reveal mass lesions. Applications Sales Consultant sections are submitted in two cassettes. / AM:litzy 08/30/17 TC:2 CPT: 45150
--- NOTE | 2017-08-29 13:26 | PCM.IMDPSTOP ---
Immediate Post-Op Note Date of Procedure: 08/29/17 Primary Surgeon/Physician: Ceferino Castellon care aide: Lauren Oneill. Pre-Operative Diagnosis: 1. Nonhealing infected diabetic ulcer lower anterior abdominal wall. 2. Diabetes mellitus. Post-Operative Diagnosis: 1. Nonhealing infected diabetic ulcer lower anterior abdominal wall. 2. Diabetes mellitus. 3. Recurrent ventral hernia. Surgery/Procedure Performed:: 1. Surgical preparation lower anterior abdominal wall with excisional debridement nonhealing infected diabetic ulcer and complex secondary wound closure with bilateral abdominal wall advancement flaps (832 cm2). 2. Repair recurrent ventral hernia with placement Strattice acellular dermal matrix graft (160 cm2). Description of Surgical Findings:: 72 year old woman presents with a nonhealing diabetic abdominal wall ulcer. She initially had surgery on 02/22/17 for an incarcerated hernia with small bowel obstruction. She underwent exploratory laparotomy and lysis of adhesions and ventral hernia repair and a partial panniculectomy to aid in wound closure. It was noted in the operative report that dissection of the abdominal wall was done below the mesh. Patient states she has had hernia repairs in the past with mesh. There was no mention of the mesh being removed at that time. Postdischarge, she developed some wound healing problems mostly inferiorly at the level of the remaining panniculus. She had developed an infected seroma and wound care was instituted with the VAC. A wound culture was obtained on 04/07/17 that showed Proteus mirabilis and she was started on Levaquin. The ulcer did not improve, and she was taken to the OR on 05/05/17 where she underwent surgical preparation abdominal wall with excisional debridement skin, subcutaneous tissue, muscle, and fascia for necrotizing soft tissue infection (962 cm2) and removal of exposed infected mesh with fascial closure and repair of recurrent ventral hernia. Cultures showed Proteus mirabilis, Morganella morganii, Enterococcus faecalis, Staphylococcus aureus, and Anaerobes. Antibiotics were instituted and the VAC. The ulcer stabilized and decreased in size. The antibiotics have been completed and she presents today for further debridement with skin grafting. She denies any fever. Her recent Hgb A1c was 6.5. Her recent Prealbumin was 26.8. Today the patient underwent surgical preparation lower anterior abdominal wall with excisional debridement nonhealing infected diabetic ulcer and complex secondary wound closure with bilateral abdominal wall advancement flaps (832 cm2) and repair recurrent ventral hernia with placement Strattice acellular dermal matrix graft (160 cm2). IV Fluids - 2100 ml. Urine Output - 500 ml. I used Strattice acellular dermal matrix graft, (10 x 16 cm), Firm. Reference Number - [id number]. Lot Number - [id number]. Expiration - November 06, 2018. I used Bhaskar absorbable hemostat, (3 vials). Reference Number - [id number]. Lot Number - [id number]. Expiration - May 06, 2022. Estimated Blood Loss: 350 ml. Specimen's removed: Diabetic ulcer abdominal wall tissue to Pathology and Microbiology. Drains: Drew x 2. Type of Anesthesia:: General - Admit VTE Documentation VTE Present on Admission: No VTE Mechan Device Prophylaxis: SCD's VTE Pharm Prophylaxis ordered?: Yes
[2017-08-29 14:46] LABS: Bedside Glucose 188 mg/dL (70-110)
[2017-08-29] MEDS: Ferrous Sulfate 325 MG Tablet PO (17:19)
[2017-08-29] MEDS: oxyCODONE 5 MG Tablet 10 MG PO ×2 (17:19→22:13)
[2017-08-29 17:26] LABS: Bedside Glucose 191 mg/dL (70-110)
--- NOTE | 2017-08-29 17:48 | PN_ITS ---
Subjective: Patient seen and examined. Hospitalist services requested by Dr. Castellon for management of type 2 diabetes mellitus. Patient underwent debridement of abdominal wall nonhealing infected diabetic ulcer and complex secondary wound closure as well as repair of recurrent ventral hernia with placement of dermal matrix graft today, 08/29/[address] Castellon. Patient is resting in bed in no acute distress. Denies pain with rest, however has pain with increased movement. Denies nausea, vomiting. Able to tolerate liquid diet. Patient has a past medical history of type 2 diabetes mellitus, hyperlipidemia, hypertension , coronary artery disease, history of recurrent ventral hernia with small bowel obstruction, obesity, GERD, gout, diabetic gastroparesis, iron deficiency anemia. - Physical Exam General: Alert, Oriented x3, Cooperative, No apparent distress HEENT: Atraumatic, PERRLA, EOMI, Normocephalic Oral: Dry Mucosa Neck: Supple, No JVD, Negative Carotid Bruits Lungs: Clear to auscultation, Diminished Cardiovascular: Regular rate, Regular Rhythm, Normal S1, Normal S2, No murmurs Abdomen: Bowel Sounds Present, Soft, Non-Distended, Obese, Tender, - - Postoperative abdominal dressing and binder intact, TALYA drains with serosanguineous drainage. Extremities: No edema, Capillary Refill Less than 3 Seconds Skin: No rashes, No breakdown Musculoskeletal: No Tenderness to Palpation of Joints or Extremities Neurological: Cranial nerves II-XII grossly intact, Neuro grossly intact Psych/Mental Status: Normal Affect, Appropriate Vital Signs Temp Pulse Resp BP Pulse Ox 97.8 F 62 14 137/53 H 100 08/29/17 16:01 08/29/17 16:01 08/29/17 16:01 08/29/17 16:01 08/29/17 16:10 Oxygen Flow Rate 2 Oxygen Delivery Method Nasal Cannula Weight: 101.6 kg Body Mass Index (BMI) 40.9 Finger Stick Blood Glucose 188 Intake and Output for Last 24 Hours 08/27/17 08/28/17 08/29/17 23:59 23:59 23:59 Intake Total 2100 / 2100 Output Total 675 / 675 Balance 1425 / 1425 POC Glucose 08/29/17 08/29/17 08/29/17 17:16 14:40 09:22 POC Glucose 191 H 188 H 107 Assessment/Plan 1. Nonhealing lower anterior abdominal wall ulcer, recurrent ventral hernia- Patient underwent debridement of abdominal wall nonhealing infected diabetic ulcer and complex secondary wound closure as well as repair of recurrent ventral hernia with placement of dermal matrix graft today, 08/29/[address] Castellon. Management per Dr. Castellon. Pain currently well controlled. Cultures pending. 2. Type 2 diabetes mellitus-associated diabetic gastroparesis. Metformin on hold. Recent hemoglobin A1c 08/21/17 6.5%. Accu-Cheks before meals at bedtime with sliding scale insulin. 3. Protein calorie malnutrition-continue nutritional supplementation. 4. Hypertension-stable, continue home regimen. 5. Hyperlipidemia-continue statin. 5. Coronary disease-continue aspirin, statin. Denies chest pain. 6. GERD-continue PPI. 7. Gout-continue allopurinol regimen. 8. Iron deficiency anemia-continue iron supplementation. Monitor CBC. DVT prophylaxis-Lovenox subcu, SCDs. This patient was seen by LAURA Guillen under the supervision of Dr. August.
--- NOTE | 2017-08-29 19:15 | PCM.OPRPT ---
Report of Operation Date of Procedure: 08/29/17 Pre-Operative Diagnosis: 1. Nonhealing infected diabetic ulcer lower anterior abdominal wall. 2. Diabetes mellitus. Post-Operative Diagnosis: 1. Nonhealing infected diabetic ulcer lower anterior abdominal wall. 2. Diabetes mellitus. 3. Recurrent ventral hernia. Surgery/Procedure Performed:: 1. Surgical preparation lower anterior abdominal wall with excisional debridement nonhealing infected diabetic ulcer and complex secondary wound closure with bilateral abdominal wall advancement flaps (832 cm2). 2. Repair recurrent ventral hernia with placement Strattice acellular dermal matrix graft (160 cm2). Description of Surgical Findings:: 72 year old woman presents with a nonhealing diabetic abdominal wall ulcer. She initially had surgery on 02/22/17 for an incarcerated hernia with small bowel obstruction. She underwent exploratory laparotomy and lysis of adhesions and ventral hernia repair and a partial panniculectomy to aid in wound closure. It was noted in the operative report that dissection of the abdominal wall was done below the mesh. Patient states she has had hernia repairs in the past with mesh. There was no mention of the mesh being removed at that time. Postdischarge, she developed some wound healing problems mostly inferiorly at the level of the remaining panniculus. She had developed an infected seroma and wound care was instituted with the VAC. A wound culture was obtained on 04/07/17 that showed Proteus mirabilis and she was started on Levaquin. The ulcer did not improve, and she was taken to the OR on 05/05/17 where she underwent surgical preparation abdominal wall with excisional debridement skin, subcutaneous tissue, muscle, and fascia for necrotizing soft tissue infection (962 cm2) and removal of exposed infected mesh with fascial closure and repair of recurrent ventral hernia. Cultures showed Proteus mirabilis, Morganella morganii, Enterococcus faecalis, Staphylococcus aureus, and Anaerobes. Antibiotics were instituted and the VAC. The ulcer stabilized and decreased in size. The antibiotics have been completed and she presents today for further debridement with skin grafting. She denies any fever. Her recent Hgb A1c was 6.5. Her recent Prealbumin was 26.8. Patient was informed of the risks and complications of the procedure including alternatives to surgery. These were discussed with her personally. She voices understanding and wishes to proceed. IV Fluids - 2100 ml. Urine Output - 500 ml. I used Strattice acellular dermal matrix graft, (10 x 16 cm), Firm. Reference Number - [id number]. Lot Number - [id number]. Expiration - November 06, 2018. I used Bhaskar absorbable hemostat, (3 vials). Reference Number - [id number]. Lot Number - [id number]. Expiration - May 06, 2022. organisational psychologist: Lauren Oneill. Type of Anesthesia:: General Specimen's removed: Diabetic ulcer abdominal wall tissue to Pathology and Microbiology. Drains: Drew x 2. Estimated Blood Loss (mL): 350 ml. Fluids Replaced: 2600 ml (IV Fluids 2100 ml, Urine Output 500 ml). Description of Procedure: Patient was taken to OR in supine position and was placed under general anesthesia. Her abdominal wall was prepped and draped in the usual fashion. SCD's were placed for DVT prophylaxis. Perioperative antibiotics were given intravenously. I infiltrated the left panniculus with xylocaine with epinephrine as my donor site for the skin graft. After waiting 5 minutes for the anesthetic to take effect, I excised an ellipse of skin down into the subcutaneous tissue. The subcutaneous tissue was removed from the undersurface of the dermis as well as the deeper dermis thus fashioning a thick split thickness skin graft. The skin graft was placed in saline. I then proceeded with excisional debridement of the nonhealing ulcer with a large curette as well as a scalpel to decrease the thickened scar tissue present at the base of the ulcer since the ulcer was chronically infected. During the excisional debridement, there was a recurrent hernia noted in the lower anterior abdominal wall area. I freed up the hernia sac and scar tissue. There was a palpable subfascial and preperitoneal mesh that was dissected a little ways superiorly thinking it was not a large piece in which case it would be removed. However after a short distance of dissection, it was noted that this mesh extended much higher toward the subcostal area. Therefore no more dissection was done. The mesh was left behind. There were no signs of infection. If the patient develops evidence of chronically infected mesh in the future, will obtain General Surgery evaluation for removal of the mesh since it may require extensive lysis of adhesions and possible bowel resection. This would then require complex abdominal wall reconstruction with components separation and myofascial advancement flaps. In the area of the hernia, there was no bowel adherent. The surrounding rectus abdominal muscles appeared to be intact but laterally. I felt I could approximate the muscle and repair the hernia. I will then re-enforce the hernia repair with a piece of biologic Strattice acellular dermal matrix graft. With the presence of the recurrent hernia and subsequent repair, I decided placing a skin graft on the repair would not be a durable solution. Therefore I will mobilize bilateral abdominal wall skin flaps for advancement to close over the hernia repair. This will necessitate excising most of the panniculus anteriorly to aid in wound closure. I initially repaired the hernia by approximating the rectus abdominis muscles with 0 Surgipro figure of eight interrupted sutures. This approximation repair was accomplished without tension. I then re-enforced this repair with Strattice acellular dermal matrix graft and secure to the abdominal wall fascia with 2-0 Novafil simple interrupted sutures. The size of the Strattice was 10 x 16 cm or 160 cm2. I then mobilized bilateral abdominal wall skin flaps at the level of the abdominal wall fascia. The sub-Beth's fat was excised to aid in flap advancement. Dissection occurred superiorly to the subcostal margin and laterally to the external oblique muscle area. Two size 15 Drew drains were placed through separate stab incisions inferiorly and secured to the skin with 3-0 Nylon sutures. I irrigated the wound with saline and hemostasis was obtained with electrocautery. I then sprayed Bhaskar absorbable hemostat into the abdominal wall wounds to minimize seroma formation. I then advanced the bilateral abdominal wall skin flaps to the center to cover the hernia repair and secured with 2-0 Vicryl figure of eight interrupted sutures for the Beth's fascial layer. The deep dermis and subcutaneous tissue was approximated with 2-0 Vicryl interrupted sutures. The skin was approximated with surgical clips. The size of the defect and the size of the flaps required to close the defect was 832 cm2. Each flap was 26 x 16 cm. Antibiotic ointment was applied to the staple line followed by Kerlix gauze and ABD pads and compression tape followed by an abdominal binder. At the end of the surgery, since it took a little longer than anticipated, a santiago catheter was placed. Patient tolerated the procedure well and was sent to PACU in satisfactory condition. The tissue that was debrided was sent to Pathology for analysis to rule out carcinoma as well as to Microbiology for culture. A positive culture may necessitate antibiotic modification. She will be admitted for a surgical observation overnight stay in the hospital. Drains will be removed in 2-3 weeks. The surgical clips will be removed in 2-3 weeks. She will wear her abdominal binder for several months. Grafts/Implants Used: Strattice acellular dermal matrix graft. - Complications None. - Admit VTE Documentation VTE Present on Admission: No VTE Mechan Device Prophylaxis: SCD's VTE Pharm Prophylaxis ordered?: Yes
[2017-08-29] MEDS: Lactated Ringers 1,000 ML 60 ML IV (20:31)
[2017-08-29] MEDS: Docusate Sodium 100 MG Capsule PO (22:11)
[2017-08-29] MEDS: Phenazopyridine 95 MG Tablet 190 MG PO (22:11)
[2017-08-29] MEDS: Fluconazole 100 MG Tablet PO (22:11)
[2017-08-29] MEDS: Atorvastatin Calcium 10 MG Tablet PO (22:11)
[2017-08-29] MEDS: Chlorhexidine 480 ML 15 ML PO (22:12)
[2017-08-29] MEDS: ALPRAZolam 0.5 MG Tablet PO (22:13)
[2017-08-29] MEDS: Pantoprazole Sodium 40 MG Tablet PO (22:13)
[2017-08-29] MEDS: Ondansetron 4 MG/2 ML Vial IV (22:13)
[2017-08-29] MEDS: 0.9% NaCl Peripheral Flush Adult/Peds IV (22:27)
[2017-08-29 22:36] LABS: Bedside Glucose 260 mg/dL (70-110)
[2017-08-30 02:00] VITALS: BP 118/42; PULSE 66; RESP 18; TEMP 36.8; O2SAT 96
[2017-08-30] MEDS: oxyCODONE 5 MG Tablet 10 MG PO ×2 (04:14→19:30)
[2017-08-30] MEDS: Enoxaparin 40 MG/0.4 ML Syringe SC (06:19)
[2017-08-30] MEDS: Phenazopyridine 95 MG Tablet 190 MG PO ×3 (06:20→21:15)
[2017-08-30 07:01] LABS: Bedside Glucose 164 mg/dL (70-110)
[2017-08-30 07:15] LABS: Hematocrit 33.2 % (37-47); Hemoglobin 10.3 g/dl (12.0-15.0); Mean Corpuscular Volume 80.6 fL (81-99); Mean Platelet Vol. 10.4 fl (6.2-12.0); Platelet Count 150 K/mm3 (150-450); RBC Distribution Width CV 15.9 % (11.6-14.6); RBC Distribution Width SD 46.3 fl (35.1-43.9); Red Blood Count 4.12 M/mm3 (4.2-5.4); White Blood Count 9.3 K/mm3 (4.4-11.0)
[2017-08-30 07:22] VITALS: O2SAT 96
[2017-08-30 07:29] LABS: Scan Indicated on CBC? Y/N NO
[2017-08-30 07:30] LABS: Anion Gap 10 (5-15); BUN 17 mg/dL (7-18); Calcium,Total 8.7 mg/dL (8.5-10.1); Chloride 100 mmol/L (98-107); Creatinine, Serum 0.94 mg/dL (0.55-1.02); EST Glomerular Filtration Rate 62 mL/min (>60); Est Glom Filt Rate - Afr Amer 75 mL/min (>60); Estimated Creatinine Clearance 42.16 ml/min; Glucose 164 mg/dL (74-106); Potassium 4.5 mmol/L (3.5-5.1); Prealbumin 25.2 mg/dL (20.0-40.0); Sodium Level 135 mmol/L (136-145)
[2017-08-30 08:00] VITALS: BP 119/60; PULSE 60; RESP 18; TEMP 36.9; O2SAT 99
[2017-08-30] MEDS: Ferrous Sulfate 325 MG Tablet PO ×2 (08:35→18:12)
[2017-08-30] MEDS: Multivitamins,Ther W-Minerals Tablet 1 TABLET PO (08:35)
--- NOTE | 2017-08-30 10:14 | PN_ITS ---
Subjective: CC: Follow-up on diabetes type 2 The patient underwent a surgical procedure to repair a nonhealing ulceration of the abdominal wall. She is doing well postoperatively, she denies any chest pain shortness of breath fever or chills. Vitals/I&O's: Vital Signs Temp Pulse Resp BP Pulse Ox 98.5 F 60 18 119/60 99 08/30/17 08:00 08/30/17 08:00 08/30/17 08:00 08/30/17 08:00 08/30/17 08:00 Oxygen Flow Rate 2 Oxygen Delivery Method Room Air Weight: 101.6 kg Body Mass Index (BMI) 40.9 Finger Stick Blood Glucose 188 Intake and Output for Last 24 Hours 08/28/17 08/29/17 08/30/17 23:59 23:59 23:59 Intake Total 2939 / 2939 790 / 790 Output Total 1075 / 1075 525 / 525 Balance 1864 / 1864 265 / 265 General: Alert, Oriented x3 HEENT: Atraumatic Oral: Moist Mucosa Neck: Supple, No JVD Lungs: Clear to auscultation Cardiovascular: Regular rate, Normal S1, Normal S2 Abdomen: Bowel Sounds Present, Soft, Non Tender Extremities: No clubbing, No edema Neurological: Cranial nerves II-XII grossly intact, Neuro grossly intact, Motor Exam 5/5 strength throughout Psych/Mental Status: Normal Affect Microbiology Past 72 Hours 08/29/17 10:45 Biopsy - Abdominal Gram Stain - Final Laboratory Results 08/29/17 14:40: POC Glucose 188 H 08/29/17 17:16: POC Glucose 191 H 08/29/17 22:02: POC Glucose 260 H 08/30/17 06:38: POC Glucose 164 H 08/30/17 06:50: Sodium 135 L, Potassium 4.5, Chloride 100, Carbon Dioxide 25.0, Anion Gap 10, BUN 17, Creatinine 0.94, Estim Creat Clear Calc 42.16, Est GFR ( MDRD) Af Amer 75, Est GFR (MDRD) Non-Af 62, BUN/Creatinine Ratio 18.0, Glucose 164 H, Calcium 8.7, Prealbumin 25.2 08/30/17 06:50: WBC 9.3, RBC 4.12 L, Hgb 10.3 L, Hct 33.2 L, MCV 80.6 L, MCH 25.0 L, MCHC 31.0 L, RDW 15.9 H, RDW Differential 46.3 H, Plt Count 150, MPV 10.4 Current Medications Acetaminophen (Tylenol) 650 mg PO Q4H PRN PRN Reason: PAIN Allopurinol (Zyloprim) 300 mg PO DAILY [facility] Alprazolam (Xanax) 0.5 mg PO QHS [facility] Last Admin: 08/29/17 22:13 Dose: 0.5 mg Artificial Tears (Tears Naturale, Artificial Tears) 1 drop OPHTHALMIC PRN PRN PRN Reason: Dry Eye Atorvastatin Calcium (Lipitor) 10 mg PO QHS [facility] Last Admin: 08/29/17 22:11 Dose: 10 mg Calcium Carbonate (Tums) 500 mg PO Q6H PRN PRN Reason: INDIGESTION Chlorhexidine Gluconate (Peridex) 15 ml PO QHS [facility] Last Admin: 08/29/17 22:12 Dose: 15 ml Dextrose (D50w Syringe) 0 gm IV X1 PRN; Protocol PRN Reason: Hypoglycemia Docusate Sodium (Colace) 100 mg PO BID [facility] Last Admin: 08/29/17 22:11 Dose: 100 mg Enoxaparin Sodium (Lovenox) 40 mg SC DAILY@0600 [facility] Last Admin: 08/30/17 06:19 Dose: 40 mg [facility]ous [facility] Last Admin: 08/30/17 08:35 Dose: 325 mg Fluconazole (Diflucan) 100 mg PO BID [facility] Last Admin: 08/29/17 22:11 Dose: 100 mg Glucagon () 1 mg IM .X1 PRN PRN Reason: Hypoglycemia Hydromorphone HCl (Dilaudid) 1 mg IV Q4H PRN PRN PRN Reason: SEVERE PAIN (6-10/10) Lactated Ringer's () 1,000 mls @ 60 mls/hr IV .[id number] [facility] Last Admin: 08/29/17 20:31 Dose: 60 mls/hr Meropenem 500 mg/ Sodium (Chloride) 60 mls @ 100 mls/hr IV Q8 [facility] Last Admin: 08/30/17 06:20 Dose: 100 mls/hr Insulin Aspart (Novolog Flexpen (Bkc)) 0 units SC ACHS EMERY PRN Reason: Protocol Last Admin: 08/30/17 08:38 Dose: 1 u Lisinopril (Zestril) 20 mg PO DAILY [facility] Loperamide HCl (Imodium) 2 mg PO Q8H PRN PRN Reason: Diarrhea Metformin [facility]ucophage) [facility] Last Admin: 08/30/17 08:35 Dose: 500 mg Multivitamins/Minerals (Multivitamin With Minerals) [facility] Last Admin: 08/30/17 08:35 Dose: 1 tablet Nutritional Formula (Manjit - [place] Flavor) [facility] Last Admin: 08/30/17 08:35 Dose: 1 packet Ondansetron HCl (Zofran) 4 mg IV Q6H PRN PRN PRN Reason: NAUSEA Last Admin: 08/29/17 22:13 Dose: 4 mg Ondansetron HCl (Zofran Odt) 4 mg PO Q8H PRN PRN Reason: NAUSEA/VOMITING Oxycodone HCl (Oxyir) 10 mg PO Q4H PRN PRN PRN Reason: SEVERE PAIN (6-10/10) Last Admin: 08/30/17 04:14 Dose: 10 mg Pantoprazole Sodium (Protonix) 40 mg PO BID [facility] Last Admin: 08/29/17 22:13 Dose: 40 mg Phenazopyridine HCl (Azo Standard) 190 mg PO TID [facility] Stop: 08/31/17 14:01 Last Admin: 08/30/17 06:20 Dose: 190 mg Promethazine HCl (Phenergan) 25 mg PO Q4H PRN PRN PRN Reason: NAUSEA/VOMITING Simethicone (Mylicon) 80 mg PO 4X/DAY PRN PRN Reason: Gas Last Admin: 08/29/17 16:21 Dose: 80 mg Sodium Chloride () 5 - 30 ml IV UD PRN PRN Reason: SALINE FLUSH Last Admin: 08/29/17 22:27 Dose: 5 ml Assessment/Plan 1. Nonhealing lower anterior abdominal wound; s/p debridement , postoperative care per primary service. 2. Type 2 diabetes mellitus; continue on metformin and regular insulin sliding scale. 3. Protein calorie malnutrition; nutritional support is being provided. 4. Hypertension; she is on lisinopril 5. Hyperlipidemia; she is on a statin. 5. Coronary disease; stable with no symptoms of angina or heart failure 6. GERD; on a PPI 7. Gout; she is on Allopurinol . 8. DVT prophylaxis with Lovenox. Code Visit Inpatient E&M: 12455 Subs Hosp L2
[2017-08-30] MEDS: Docusate Sodium 100 MG Capsule PO ×2 (10:51→21:15)
[2017-08-30] MEDS: Fluconazole 100 MG Tablet PO ×2 (10:51→21:16)
[2017-08-30] MEDS: Pantoprazole Sodium 40 MG Tablet PO ×2 (10:51→21:17)
[2017-08-30] MEDS: Lisinopril 20 MG Tablet PO (10:51)
[2017-08-30] MEDS: Allopurinol 300 MG Tablet PO (10:51)
[2017-08-30 11:16] LABS: Bedside Glucose 200 mg/dL (70-110)
--- NOTE | 2017-08-30 11:57 | CASEMGMT ---
SW spoke w/pt in room in regard to discharge plan and POA. Pt was home from [facility] since Mid-June, and states has been managing well at home. She would prefer to return home after this admission, as her has started w/dementia. She states he is doing well, still drives, but does not want to go to jail as she would worry about him. Pt reports supportive son and daughter. Pt has [facility] coming out 3X/week for nursing, and states they told her they can come out daily for a week or two to help w/dressing changes. Pt also would like PT at discharge. (Pt did walk 100 feet w/contact guard w/PT). Pt states if she can get the home health coming daily if needed for a week or two, pt states she can go home. SW also spoke w/pt about POA, pt agreeable to complete the forms. Pt put daughter Gregoria as POA and son Alex as the alternate. SW gave pt originals and two copies, and copies placed on chart. SW passed case on to CM to follow for home health. [facility] remains available for any additional social service needs. MIRNA Siegel, RELEASE COORDINATOR
--- NOTE | 2017-08-30 12:02 | CASEMGMT ---
Assumed DC planning care. Pt has [facility] 3x week for skilled RN. H/P. Call to [facility] @ . They are able to add physical therapy. PT notes and order faxed to [facility]. Fletcher RUSTN RN AC
[2017-08-30] MEDS: Lactated Ringers 1,000 ML 60 ML IV (14:00)
[2017-08-30 15:00] VITALS: BP 113/48; PULSE 56; RESP 18; TEMP 36.7; O2SAT 96
--- NOTE | 2017-08-30 15:15 | OP.PCM_ITS ---
Report of Operation Date of Procedure: 08/29/17 Pre-Operative Diagnosis: 1. Nonhealing infected diabetic ulcer lower anterior abdominal wall. 2. Diabetes mellitus. Post-Operative Diagnosis: 1. Nonhealing infected diabetic ulcer lower anterior abdominal wall. 2. Diabetes mellitus. 3. Recurrent ventral hernia. Surgery/Procedure Performed:: 1. Surgical preparation lower anterior abdominal wall with excisional debridement nonhealing infected diabetic ulcer and complex secondary wound closure with bilateral abdominal wall advancement flaps (832 cm2 ). 2. Repair recurrent ventral hernia with placement Strattice acellular dermal matrix graft (160 cm2). Description of Surgical Findings:: 72 year old woman presents with a nonhealing diabetic abdominal wall ulcer. She initially had surgery on 02/22/17 for an incarcerated hernia with small bowel obstruction. She underwent exploratory laparotomy and lysis of adhesions and ventral hernia repair and a partial panniculectomy to aid in wound closure. It was noted in the operative report that dissection of the abdominal wall was done below the mesh. Patient states she has had hernia repairs in the past with mesh. There was no mention of the mesh being removed at that time. Postdischarge, she developed some wound healing problems mostly inferiorly at the level of the remaining panniculus. She had developed an infected seroma and wound care was instituted with the VAC. A wound culture was obtained on that showed Proteus mirabilis and she was started on Levaquin. The ulcer did not improve, and she was taken to the OR on 05/05/17 where she underwent surgical preparation abdominal wall with excisional debridement skin, subcutaneous tissue, muscle, and fascia for necrotizing soft tissue infection ( 962 cm2) and removal of exposed infected mesh with fascial closure and repair of recurrent ventral hernia. Cultures showed Proteus mirabilis, Morganella morganii, Enterococcus faecalis, Staphylococcus aureus, and Anaerobes. Antibiotics were instituted and the VAC. The ulcer stabilized and decreased in size. The antibiotics have been completed and she presents today for further debridement with skin grafting. She denies any fever. Her recent Hgb A1c was 6.5. Her recent Prealbumin was 26.8. Patient was informed of the risks and complications of the procedure including alternatives to surgery. These were discussed with her personally. She voices understanding and wishes to proceed. IV Fluids - 2100 ml. Urine Output - 500 ml. I used Strattice acellular dermal matrix graft, (10 x 16 cm), Firm. Reference Number - [id number]. Lot Number - [id number]. Expiration - November 06, 2018. I used Bhaskar absorbable hemostat, (3 vials). Reference Number - [id number]. Lot Number - [id number]. Expiration - May 06, 2022. mental telepathist: Lauren Oneill. Type of Anesthesia:: General Specimen's removed: Diabetic ulcer abdominal wall tissue to Pathology and Microbiology. Drains: Drew x 2. Estimated Blood Loss (mL): 350 ml. Fluids Replaced: 2600 ml (IV Fluids 2100 ml, Urine Output 500 ml). Description of Procedure: Patient was taken to OR in supine position and was placed under general anesthesia. Her abdominal wall was prepped and draped in the usual fashion. SCD's were placed for DVT prophylaxis. Perioperative antibiotics were given intravenously. I infiltrated the left panniculus with xylocaine with epinephrine as my donor site for the skin graft. After waiting 5 minutes for the anesthetic to take effect, I excised an ellipse of skin down into the subcutaneous tissue. The subcutaneous tissue was removed from the undersurface of the dermis as well as the deeper dermis thus fashioning a thick split thickness skin graft. The skin graft was placed in saline. I then proceeded with excisional debridement of the nonhealing ulcer with a large curette as well as a scalpel to decrease the thickened scar tissue present at the base of the ulcer since the ulcer was chronically infected. During the excisional debridement, there was a recurrent hernia noted in the lower anterior abdominal wall area. I freed up the hernia sac and scar tissue. There was a palpable subfascial and preperitoneal mesh that was dissected a little ways superiorly thinking it was not a large piece in which case it would be removed. However after a short distance of dissection, it was noted that this mesh extended much higher toward the subcostal area. Therefore no more dissection was done. The mesh was left behind. There were no signs of infection. If the patient develops evidence of chronically infected mesh in the future, will obtain General Surgery evaluation for removal of the mesh since it may require extensive lysis of adhesions and possible bowel resection. This would then require complex abdominal wall reconstruction with components separation and myofascial advancement flaps. In the area of the hernia, there was no bowel adherent. The surrounding rectus abdominal muscles appeared to be intact but laterally. I felt I could approximate the muscle and repair the hernia. I will then re-enforce the hernia repair with a piece of biologic Strattice acellular dermal matrix graft. With the presence of the recurrent hernia and subsequent repair, I decided placing a skin graft on the repair would not be a durable solution. Therefore I will mobilize bilateral abdominal wall skin flaps for advancement to close over the hernia repair. This will necessitate excising most of the panniculus anteriorly to aid in wound closure. I initially repaired the hernia by approximating the rectus abdominis muscles with 0 Surgipro figure of eight interrupted sutures. This approximation repair was accomplished without tension. I then re-enforced this repair with Strattice acellular dermal matrix graft and secure to the abdominal wall fascia with 2-0 Novafil simple interrupted sutures. The size of the Strattice was 10 x 16 cm or 160 cm2. I then mobilized bilateral abdominal wall skin flaps at the level of the abdominal wall fascia. The sub-Beth's fat was excised to aid in flap advancement. Dissection occurred superiorly to the subcostal margin and laterally to the external oblique muscle area. Two size 15 Drew drains were placed through separate stab incisions inferiorly and secured to the skin with 3-0 Nylon sutures. I irrigated the wound with saline and hemostasis was obtained with electrocautery. I then sprayed Bhaskar absorbable hemostat into the abdominal wall wounds to minimize seroma formation. I then advanced the bilateral abdominal wall skin flaps to the center to cover the hernia repair and secured with 2-0 Vicryl figure of eight interrupted sutures for the Beth's fascial layer. The deep dermis and subcutaneous tissue was approximated with 2-0 Vicryl interrupted sutures. The skin was approximated with surgical clips. The size of the defect and the size of the flaps required to close the defect was 832 cm2. Each flap was 26 x 16 cm. Antibiotic ointment was applied to the staple line followed by Kerlix gauze and ABD pads and compression tape followed by an abdominal binder. At the end of the surgery , since it took a little longer than anticipated, a santiago catheter was placed. Patient tolerated the procedure well and was sent to PACU in satisfactory condition. The tissue that was debrided was sent to Pathology for analysis to rule out carcinoma as well as to Microbiology for culture. A positive culture may necessitate antibiotic modification. She will be admitted for a surgical observation overnight stay in the hospital. Drains will be removed in 2-3 weeks. The surgical clips will be removed in 2-3 weeks. She will wear her abdominal binder for several months. Grafts/Implants Used: Strattice acellular dermal matrix graft. - Complications None. - Admit VTE Documentation VTE Present on Admission: No VTE Mechan Device Prophylaxis: SCD's VTE Pharm Prophylaxis ordered?: Yes
--- NOTE | 2017-08-30 15:27 | PCM.PN.SRG ---
Subjective: Postop #1 Patient is resting comfortably. Tolerating liquids. Winslow has been removed and she is voiding without difficulty. - Physical Exam General: Alert, Oriented x3 HEENT: PERRLA, EOMI Neck: Supple Lungs: Clear to auscultation Cardiovascular: Regular rate, Regular Rhythm Abdomen: Soft, Non-Distended, - - incisional tenderness. Skin: Incision - abdominal incisions are dry and intact. Neurological: Cranial nerves II-XII grossly intact Psych/Mental Status: Normal Affect, Appropriate Vital Signs Temp Pulse Resp BP Pulse Ox 98.5 F 60 18 119/60 99 08/30/17 08:00 08/30/17 08:00 08/30/17 08:00 08/30/17 08:00 08/30/17 08:00 Oxygen Flow Rate 2 Oxygen Delivery Method Room Air Weight: 223 lb 15.834 oz Body Mass Index (BMI) 40.9 Finger Stick Blood Glucose 188 Intake and Output for Last 24 Hours 08/28/17 08/29/17 08/30/17 23:59 23:59 23:59 Intake Total 2939 / 2939 1900 / 1900 Output Total 1075 / 1075 1765 / 1765 Balance 1864 / 1864 135 / 135 Drainage 225 ml yesterday. Microbiology Past 72 Hours 08/29/17 10:45 Gram Stain - Final Biopsy - Abdominal Wound Culture - Preliminary No growth-Final to follow Laboratory Tests Past 24 Hrs 08/30/17 08/30/17 06:50 06:50 WBC 9.3 RBC 4.12 L Hgb 10.3 L Hct 33.2 L MCV 80.6 L MCH 25.0 L MCHC 31.0 L RDW 15.9 H RDW Differential 46.3 H Plt Count 150 MPV 10.4 Sodium 135 L Potassium 4.5 Chloride 100 Carbon Dioxide 25.0 Anion Gap 10 BUN 17 Creatinine 0.94 Estim Creat Clear Calc 42.16 Est GFR (MDRD) Af Amer 75 Est GFR (MDRD) Non-Af 62 BUN/Creatinine Ratio 18.0 Glucose 164 H Calcium 8.7 Prealbumin 25.2 POC Glucose 08/30/17 08/30/17 08/29/17 11:11 06:38 22:02 POC Glucose 200 H 164 H 260 H 08/29/17 17:16 POC Glucose 191 H Assessment/Plan 1. Nonhealing infected diabetic ulcer lower anterior abdominal wall. 2. Diabetes mellitus. 3. Recurrent ventral hernia. 4. s/p surgical preparation lower anterior abdominal wall with excisional debridement nonhealing infected diabetic ulcer and complex secondary wound closure with bilateral abdominal wall advancement flaps (832 cm2) and repair recurrent ventral hernia with placement Strattice acellular dermal matrix graft (160 cm2). Incision is dry and intact. Patient is having some incisional pain. Tolerating liquids. Will advance diet. Winslow removed today. She is voiding without difficulty. Continue IV Meropenem. Operative cultures negative thus far. Prealbumin was 25.2. Encourage nutritional supplementation with protein to help the healing process. Continue abdominal wall binder. Anticipate weaning to po analgesia and discharge tomorrow.
[2017-08-30 17:31] LABS: Bedside Glucose 170 mg/dL (70-110)
[2017-08-30 21:11] VITALS: BP 113/52; PULSE 60; RESP 16; TEMP 36.6; O2SAT 96
[2017-08-30] MEDS: Ondansetron ODT 4 MG Tablet PO (21:15)
[2017-08-30] MEDS: ALPRAZolam 0.5 MG Tablet PO (21:15)
[2017-08-30] MEDS: Calcium Carbonate 500 MG Tablet PO (21:15)
[2017-08-30] MEDS: Atorvastatin Calcium 10 MG Tablet PO (21:16)
[2017-08-30] MEDS: Chlorhexidine 480 ML 15 ML PO (21:16)
[2017-08-30 22:21] LABS: Bedside Glucose 165 mg/dL (70-110)
[2017-08-31 03:00] VITALS: BP 114/45; PULSE 69; RESP 16; TEMP 36.4; O2SAT 98
[2017-08-31] MEDS: Enoxaparin 40 MG/0.4 ML Syringe SC (06:45)
[2017-08-31] MEDS: Phenazopyridine 95 MG Tablet 190 MG PO ×2 (06:45→14:39)
[2017-08-31 06:55] LABS: Bedside Glucose 106 mg/dL (70-110)
[2017-08-31 07:45] VITALS: BP 124/50; PULSE 65; RESP 16; TEMP 36.4; O2SAT 98
[2017-08-31] MEDS: Lactated Ringers 1,000 ML 60 ML IV (07:59)
[2017-08-31] MEDS: Ferrous Sulfate 325 MG Tablet PO (07:59)
[2017-08-31] MEDS: Multivitamins,Ther W-Minerals Tablet 1 TABLET PO (07:59)
[2017-08-31 08:08] VITALS: O2SAT 98
[2017-08-31] MEDS: Lisinopril 20 MG Tablet PO (10:06)
[2017-08-31] MEDS: Fluconazole 100 MG Tablet PO (10:06)
[2017-08-31] MEDS: Allopurinol 300 MG Tablet PO (10:06)
[2017-08-31] MEDS: Docusate Sodium 100 MG Capsule PO (10:07)
[2017-08-31] MEDS: Pantoprazole Sodium 40 MG Tablet PO (10:07)
[2017-08-31] MEDS: Acetaminophen 325 MG Tablet 650 MG PO (11:22)
--- NOTE | 2017-08-31 12:36 | PCM.PN.SRG ---
Subjective: Postop #2 Patient is resting comfortably. Tolerating regular food. - Physical Exam General: Alert, Oriented x3 HEENT: PERRLA, EOMI Neck: Supple Lungs: Clear to auscultation Cardiovascular: Regular rate, Regular Rhythm Abdomen: Soft, Non-Distended, - - incisional tenderness. Extremities: No clubbing, No cyanosis, No edema Skin: Incision - abdominal incision dry and intact. Neurological: Cranial nerves II-XII grossly intact Psych/Mental Status: Normal Affect, Appropriate Vital Signs Temp Pulse Resp BP Pulse Ox 97.5 F L 65 16 124/50 H 98 08/31/17 07:45 08/31/17 07:45 08/31/17 07:45 08/31/17 07:45 08/31/17 08:08 Oxygen Flow Rate 2 Oxygen Delivery Method Room Air Weight: 223 lb 15.834 oz Body Mass Index (BMI) 40.9 Finger Stick Blood Glucose 188 Intake and Output for Last 24 Hours 08/29/17 08/30/17 08/31/17 23:59 23:59 23:59 Intake Total 2939 / 2939 4975 / 4975 1491 / 1491 Output Total 1075 / 1075 2830 / 2830 1905 / 1905 Balance 1864 / 1864 2145 / 2145 -414 / -414 Drainage 180 ml yesterday. Microbiology Past 72 Hours 08/29/17 10:45 Gram Stain - Final Biopsy - Abdominal Wound Culture - Preliminary No growth-Final to follow POC Glucose 08/31/17 08/30/17 08/30/17 06:43 21:22 17:15 POC Glucose 106 165 H 170 H Assessment/Plan 1. Nonhealing infected diabetic ulcer lower anterior abdominal wall. 2. Diabetes mellitus. 3. Recurrent ventral hernia. 4. s/p surgical preparation lower anterior abdominal wall with excisional debridement nonhealing infected diabetic ulcer and complex secondary wound closure with bilateral abdominal wall advancement flaps (832 cm2) and repair recurrent ventral hernia with placement Strattice acellular dermal matrix graft (160 cm2). Incision is dry and intact. Patient is having some incisional pain. Tolerating regular food. Operative cultures negative thus far. Will send home on Bactrim DS. Prealbumin was 25.2. Encourage nutritional supplementation with protein to help the healing process. Continue abdominal wall binder. Discharge home today. [facility]. Wrote script for Bactrim DS (40 tabs). Wrote scripts for Percocet for pain (50 tabs) and for Valium for spasm, twice a day (20 tabs).
--- NOTE | 2017-08-31 13:04 | PCM.DC ---
- Discharge Diagnoses Current Active Problems: Current Active and Chronic Problems Recurrent ventral incisional hernia (Chronic) Diabetes mellitus with skin ulcer (Chronic) nonhealing infected diabetic ulcer lower anterior abdominal wall You will use the following diet at home:: Calorie/Carbohydrate Controlled (specify 1200, 1400, etc) Discharge Activity: May not drive while taking narcotic pain medications., May Not Shower - until drains are removed. May shower in (days): 14 - may shower after the drains are removed May resume sexual activity in: 10-14 days Weight Bearing Status: Weight bearing as tolerated Lifting Restrictions: 10 lbs. Keep extremity elevated above heart level: - - elevate head. Call your doctor if your incision/area has: Continuous Slow Oozing, Sudden Increased Bleeding, Increased Pain/ Swelling, Increased Redness, Foul Smelling Discharge, Swelling at the incision site Call your doctor if you observe: Fever of 101 or Higher, Coldness, Increased Pain, Shortness of breath, Chest pain, Calf discomfort, Uncontrolled pain Suture Line Care: - - bactroban ointment to staple line daily followed by gauze dressing and abdominal binder. Change Dressing in (Days):: 1 Cleanse incision/area with: - - may get incisions wet in the shower after the drains are removed. Drain: Suction - lori drain x 2 to bulb suction. empty and record output daily. Additional Dressing/Incision Instructions:: Home Health to assist with dressing changes and drain care. Allergies/Adverse Reactions: Allergies Cephalosporins Allergy (Verified 08/16/17 11:10) Other clotrimazole Allergy (Verified 08/16/17 11:10) Other levofloxacin [From Levaquin] Allergy (Verified 08/16/17 11:10) Other metoclopramide [From Reglan] Allergy (Verified 08/16/17 11:10) Other Penicillins Allergy (Verified 08/16/17 11:10) Other prednisolone Allergy (Verified 08/16/17 11:10) Other Tetracyclines Allergy (Verified 08/16/17 11:10) Other promethazine [From Phenergan] Adverse Reaction (Verified 08/16/17 11:10) Other Restless legs Medications to take at Discharge Acetaminophen [Tylenol] 650 mg PO Q4H PRN 04/17/17 Allopurinol [Zyloprim] 300 mg PO DAILY 04/17/17 Calcium Carbonate [Tums] 200 mg PO Q6H PRN 04/17/17 Chlorhexidine Gluconate [Peridex] 15 ml PO QHS 04/17/17 Ferrous Sulfate 325 mg PO BID 04/17/17 Loperamide HCl [Imodium A-D] 2 mg PO Q8H PRN 04/17/17 Multivitamins,Ther W-Minerals [Multivitamin With Minerals] 1 tablet PO DAILY 04/17/17 Polyvinyl Alcohol [Artificial Tears] 1 drop EACH EYE PRN PRN 04/17/17 SimETHICONE [Mylicon] 80 mg PO 4X/DAY PRN 04/17/17 Metformin HCl [Glucophage] 500 mg PO BIDCM 05/03/17 Alprazolam [Xanax] 0.5 mg PO QHS 08/16/17 Fosinopril Sodium 20 mg PO DAILY 08/16/17 Pantoprazole Sodium [Protonix] 40 mg PO BID 08/16/17 Simvastatin [Zocor] 20 mg PO QHS 08/16/17 Adhesive Tape [Paper Tape and Dispenser] 1 ea TP .QDAILY #4 tape 08/31/17 Diazepam [Valium] 5 mg PO BID PRN PRN #20 tab 08/31/17 Diazepam [Valium] 5 mg PO BID PRN PRN #20 tablet 08/31/17 Docusate Sodium [Colace] 100 mg PO BID capsule 08/31/17 Fluconazole [Diflucan] 100 mg PO BID #28 tab 08/31/17 Gauze Bandage [Rolled Gauze] 2 ea TP .QDAILY #60 bandage 08/31/17 Glucagon 1 mg IM .X1 PRN syringe 08/31/17 Hydrocodone/Acetaminophen [[place] 5-325 Tablet] 1 - 2 ea PO 4X/DAY PRN PRN 7 Days #50 tab 08/31/17 Insulin Aspart [Novolog Flexpen] See Protocol SC ACHS flexpen 08/31/17 L. Acidophilus/Pectin, [place] [Acidophilus-Pectin Captab] 1 ea PO BID #40 tab 08/31/17 Mupirocin Calcium [Bactroban] 30 gm TP .QDAILY #4 cream..g. 08/31/17 Ondansetron HCl [Zofran] 4 mg PO TID PRN PRN #30 tab 08/31/17 Smz/Tmp Ds [Bactrim Ds] 1 tab PO BID #40 tab 08/31/17 The following prescriptions were given: Adhesive Tape [Paper Tape and Dispenser] 1 ea TP .QDAILY #4 tape Diazepam [Valium] 5 mg PO BID PRN PRN #20 tablet PRN Reason: Spasms Diazepam [Valium] 5 mg PO BID PRN PRN #20 tab PRN Reason: Spasms Gauze Bandage [Rolled Gauze] 2 ea TP .QDAILY #60 bandage Hydrocodone/Acetaminophen [[place] 5-325 Tablet] 1 - 2 ea PO 4X/DAY PRN PRN 7 Days #50 tab PRN Reason: Pain Mupirocin Calcium [Bactroban] 30 gm TP .QDAILY #4 cream..g. Ondansetron HCl [Zofran] 4 mg PO TID PRN PRN #30 tab PRN Reason: Nausea Fluconazole [Diflucan] 100 mg PO BID #28 tab L. Acidophilus/Pectin, [place] [Acidophilus-Pectin Captab] 1 ea PO BID #40 tab Smz/Tmp Ds [Bactrim Ds] 1 tab PO BID #40 tab Primary Care Physician: Kvng Weeks [Primary Care Provider] - Please Follow Up With: Ceferino Castellon MD - call [phone] if questions and for the time of appt. When: monday09/11/17 at wound center Proposed Discharge Date: 08/31/17
--- NOTE | 2017-08-31 13:09 | DCINST_ITS ---
- Discharge Diagnoses Current Active Problems: Current Active and Chronic Problems Recurrent ventral incisional hernia (Chronic) Diabetes mellitus with skin ulcer (Chronic) nonhealing infected diabetic ulcer lower anterior abdominal wall You will use the following diet at home:: Calorie/Carbohydrate Controlled ( specify 1200, 1400, etc) Discharge Activity: May not drive while taking narcotic pain medications., May Not Shower - until drains are removed. May shower in (days): 14 - may shower after the drains are removed May resume sexual activity in: 10-14 days Weight Bearing Status: Weight bearing as tolerated Lifting Restrictions: 10 lbs. Keep extremity elevated above heart level: - - elevate head. Call your doctor if your incision/area has: Continuous Slow Oozing, Sudden Increased Bleeding, Increased Pain/ Swelling, Increased Redness, Foul Smelling Discharge, Swelling at the incision site Call your doctor if you observe: Fever of 101 or Higher, Coldness, Increased Pain, Shortness of breath, Chest pain, Calf discomfort, Uncontrolled pain Suture Line Care: - - bactroban ointment to staple line daily followed by gauze dressing and abdominal binder. Change Dressing in (Days):: 1 Cleanse incision/area with: - - may get incisions wet in the shower after the drains are removed. Drain: Suction - lori drain x 2 to bulb suction. empty and record output daily. Additional Dressing/Incision Instructions:: Home Health to assist with dressing changes and drain care. Allergies/Adverse Reactions: Allergies Cephalosporins Allergy (Verified 08/16/17 11:10) Other clotrimazole Allergy (Verified 08/16/17 11:10) Other levofloxacin [From Levaquin] Allergy (Verified 08/16/17 11:10) Other metoclopramide [From Reglan] Allergy (Verified 08/16/17 11:10) Other Penicillins Allergy (Verified 08/16/17 11:10) Other prednisolone Allergy (Verified 08/16/17 11:10) Other Tetracyclines Allergy (Verified 08/16/17 11:10) Other promethazine [From Phenergan] Adverse Reaction (Verified 08/16/17 11:10) Other Restless legs Medications to take at Discharge Acetaminophen [Tylenol] 650 mg PO Q4H PRN 04/17/17 Allopurinol [Zyloprim] 300 mg PO DAILY 04/17/17 Calcium Carbonate [Tums] 200 mg PO Q6H PRN 04/17/17 Chlorhexidine Gluconate [Peridex] 15 ml PO QHS 04/17/17 Ferrous Sulfate 325 mg PO BID 04/17/17 Loperamide HCl [Imodium A-D] 2 mg PO Q8H PRN 04/17/17 Multivitamins,Ther W-Minerals [Multivitamin With Minerals] 1 tablet PO DAILY 03/26 Polyvinyl Alcohol [Artificial Tears] 1 drop EACH EYE PRN PRN 04/17/17 SimETHICONE [Mylicon] 80 mg PO 4X/DAY PRN 04/17/17 Metformin HCl [Glucophage] 500 mg PO BIDCM 05/03/17 Alprazolam [Xanax] 0.5 mg PO QHS 08/16/17 Fosinopril Sodium 20 mg PO DAILY 08/16/17 Pantoprazole Sodium [Protonix] 40 mg PO BID 08/16/17 Simvastatin [Zocor] 20 mg PO QHS 08/16/17 Adhesive Tape [Paper Tape and Dispenser] 1 ea TP .QDAILY #4 tape 08/31/17 Diazepam [Valium] 5 mg PO BID PRN PRN #20 tab 08/31/17 Diazepam [Valium] 5 mg PO BID PRN PRN #20 tablet 08/31/17 Docusate Sodium [Colace] 100 mg PO BID capsule 08/31/17 Fluconazole [Diflucan] 100 mg PO BID #28 tab 08/31/17 Gauze Bandage [Rolled Gauze] 2 ea TP .QDAILY #60 bandage 08/31/17 Glucagon 1 mg IM .X1 PRN syringe 08/31/17 Hydrocodone/Acetaminophen [[place] 5-325 Tablet] 1 - 2 ea PO 4X/DAY PRN PRN 7 Days #50 tab 08/31/17 Insulin Aspart [Novolog Flexpen] See Protocol SC ACHS flexpen 08/31/17 L. Acidophilus/Pectin, [place] [Acidophilus-Pectin Captab] 1 ea PO BID #40 tab Mupirocin Calcium [Bactroban] 30 gm TP .QDAILY #4 cream..g. 08/31/17 Ondansetron HCl [Zofran] 4 mg PO TID PRN PRN #30 tab 08/31/17 Smz/Tmp Ds [Bactrim Ds] 1 tab PO BID #40 tab 08/31/17 The following prescriptions were given: Adhesive Tape [Paper Tape and Dispenser] 1 ea TP .QDAILY #4 tape Diazepam [Valium] 5 mg PO BID PRN PRN #20 tablet PRN Reason: Spasms Diazepam [Valium] 5 mg PO BID PRN PRN #20 tab PRN Reason: Spasms Gauze Bandage [Rolled Gauze] 2 ea TP .QDAILY #60 bandage Hydrocodone/Acetaminophen [[place] 5-325 Tablet] 1 - 2 ea PO 4X/DAY PRN PRN 7 Days #50 tab PRN Reason: Pain Mupirocin Calcium [Bactroban] 30 gm TP .QDAILY #4 cream..g. Ondansetron HCl [Zofran] 4 mg PO TID PRN PRN #30 tab PRN Reason: Nausea Fluconazole [Diflucan] 100 mg PO BID #28 tab L. Acidophilus/Pectin, [place] [Acidophilus-Pectin Captab] 1 ea PO BID #40 tab Smz/Tmp Ds [Bactrim Ds] 1 tab PO BID #40 tab Primary Care Physician: Kvng Weeks [Primary Care Provider] - Please Follow Up With: Ceferino Castellon MD - call [phone] if questions and for the time of appt. When: monday09/11/17 at wound center Proposed Discharge Date: 08/31/17
[2017-08-31 13:41] LABS: Bedside Glucose 121 mg/dL (70-110)
--- NOTE | 2017-08-31 14:09 | CASEMGMT ---
Dr. Castellon in to see pt. Discharging patient today. Call to [facility] to notify. DC instructions and scripts faxed. Izabella RUSTN RN ACM
[2017-08-31] MEDS: oxyCODONE 5 MG Tablet 10 MG PO (14:39)
[2017-08-31 14:45] VITALS: BP 122/53; PULSE 65; RESP 18; TEMP 36.5; O2SAT 100
--- NOTE | 2017-09-01 09:10 | PCM.PN.HOSP ---
Subjective: CC: Follow-up on diabetes type 2 The patient underwent a surgical procedure to repair a nonhealing ulceration of the abdominal wall. She is doing well postoperatively, she denies any chest pain shortness of breath fever or chills. No acute events reported overnight. Vitals/I&O's: Vital Signs Temp Pulse Resp BP Pulse Ox 97.7 F L 65 18 122/53 H 100 08/31/17 14:45 08/31/17 14:45 08/31/17 14:45 08/31/17 14:45 08/31/17 14:45 Oxygen Flow Rate 2 Oxygen Delivery Method Room Air Weight: 101.6 kg Body Mass Index (BMI) 40.9 Finger Stick Blood Glucose 188 Intake and Output for Last 24 Hours 08/30/17 08/31/17 09/01/17 23:59 23:59 23:59 Intake Total 4975 / 4975 1491 / 1491 Output Total 2830 / 2830 2230 / 2230 Balance 2145 / 2145 -739 / -739 Microbiology Past 72 Hours 08/29/17 10:45 Biopsy - Abdominal Gram Stain - Final 08/29/17 10:45 Biopsy - Abdominal Wound Culture - Preliminary No growth-Final to follow Laboratory Results 08/31/17 11:18: POC Glucose 121 H Assessment/Plan 1. Nonhealing lower anterior abdominal wound; s/p debridement , postoperative care per primary service. 2. Type 2 diabetes mellitus; continue on metformin and regular insulin sliding scale. 3. Protein calorie malnutrition; nutritional support is being provided. 4. Hypertension; she is on lisinopril 5. Hyperlipidemia; she is on a statin. 5. Coronary disease; stable with no symptoms of angina or heart failure 6. GERD; on a PPI 7. Gout; she is on Allopurinol . 8. DVT prophylaxis with Lovenox. ok to Discharge home from medical standpoint. Code Visit Inpatient E&M: 22051 Subs Hosp L2
== END 2017-08-31 15:12 | disposition home health service (06) | DRG 623 ==
LOC: SDC 11:17
PROVIDERS: Admitting Provider Surgery; Family Provider Family Medicine; PCP Family Medicine; Visit Provider Internal Medicine
DX: E11.622 Type 2 diabetes mellitus with other skin ulcer (principal); Z68.41 Body mass index [BMI] 40.0-44.9, adult; L98.499 Non-pressure chronic ulcer of skin of other sites with unspecified severity; E46 Unspecified protein-calorie malnutrition; K31.84 Gastroparesis; E11.43 Type 2 diabetes mellitus with diabetic autonomic (poly)neuropathy; E78.5 Hyperlipidemia, unspecified; E66.9 Obesity, unspecified; I10 Essential (primary) hypertension; I25.10 Atherosclerotic heart disease of native coronary artery without angina pectoris; K21.9 Gastro-esophageal reflux disease without esophagitis; M10.9 Gout, unspecified; Z95.1 Presence of aortocoronary bypass graft; Z79.84 Long term (current) use of oral hypoglycemic drugs; D50.9 Iron deficiency anemia, unspecified; K43.2 Incisional hernia without obstruction or gangrene
CPT/HCPCS: 36415; 80048; 82962; 83036; 84134; 85027; 87070; 87075; 87077; 87102; 87205; 87206; 88304; 97110; 97162; 97166; 97535; J2185; J7120; A4216; J2405

== ENCOUNTER 2017-09-25 10:15 | Outpatient (RCR) | payer MEDICARE, OTHER, SELFPAY ==
[2017-09-07 00:36] VITALS: BP 140/73; PULSE 79; RESP 18; TEMP 36.1; BMI 103.2
[2017-09-11 10:24] VITALS: BP 140/57; PULSE 91; RESP 18; TEMP 36.6; BMI 103.2
--- NOTE | 2017-09-11 22:18 | PN.PCM_ITS ---
Type of Wound Date of Service: 09/11/17 Chief Complaint: Nonhealing infected abdominal wall ulcer. History of Wound: Surgery 08/29/17 - 1. Surgical preparation lower anterior abdominal wall with excisional debridement nonhealing infected diabetic ulcer and complex secondary wound closure with bilateral abdominal wall advancement flaps (832 cm2). 2. Repair recurrent ventral hernia with placement Strattice acellular dermal matrix graft (160 cm2). Progress of Wound: Recent surgical closure 08/29/17. - Physical Exam Vital Signs Temp Pulse Resp BP 97.8 F 91 18 140/57 H 09/11/17 10:24 09/11/17 10:24 09/11/17 10:24 09/11/17 10:24 Wound Measurements and Assessment WC - Nurse 1 - General Ulcer Measurement Start: 09/11/17 10:24 Freq: Status: Active Protocol: Activity Type Activity Date Activity User E-Sign Co-Sign Detail Recorded Client Recorded Date Recorded By Document 09/11/17 10:24 [facility] [id number] 09/11/17 10:38 [facility] 09/11/17 10:24 Wound Center Nurse 1 [Ulcer Assessment] #1 Midline Abdomen (POST OP) -Combined with other wound No -Current Size (cm) - Length 0.1 -Current Size (cm) - Width 0.1 -Current Size (cm) - Depth 0.1 -Total Square Cm 0.01 -Date of Last Picture (Recall this 09/11/17 field) -Photo Taken Yes -Exudate Amt Medium (34-66%) -Exudate Type Sanguineous -Moisture (Tamia-wound Skin Appearance Dry/Scaly ) -Temperature (Tamia-wound Skin No Abnormality Appearance) (Pt Warm) -Tenderness on Palpation (Tamia-wound Yes Skin Appearance) -Ulcer Cleansing Wound Cleanser -Foul Odor after Cleansing No WC - Nurse 2 - General Ulcer CM Notes Start: 09/11/17 10:24 Freq: Status: Active Protocol: Activity Type Activity Date Activity User E-Sign Co-Sign Detail Recorded Client Recorded Date Recorded By Document 09/11/17 11:29 [id number] 09/11/17 11:34 09/11/17 11:29 Wound Center Nurse 2 [Procedure/Treatment] -Correct Patient No -Correct Side, Site, Position No -Correct Procedure No -Procedure Performed No -Bleeding Controlled with NA [See Physician Procedure note for Specifics] Pain Scale: 0-10 Numeric [Pain] -Is Patient Pain Free? Yes Debridement Note Post-Debridement Measurements/Treatment WC - Nurse 2 - General Ulcer CM Notes Start: 09/11/17 10:24 Freq: Status: Active Protocol: Activity Type Activity Date Activity User E-Sign Co-Sign Detail Recorded Client Recorded Date Recorded By Document 09/11/17 11:29 [id number] 09/11/17 11:34 09/11/17 11:29 Wound Center Nurse 2 #1 Midline Abdomen (POST OP) -Correct Patient No -Correct Side, Site, Position No -Correct Procedure No -Procedure Performed No -Bleeding Controlled with NA Pain Scale: 0-10 Numeric Is Patient Pain Free? Yes Wound debrided: #1 Midline abdominal wall. Laterality: Not Applicable Wound Grade/Stage: 3. No debridement was completed today - Patient had recent surgery on 08/29/17 with wound closure. Assessment/Plan Assessment: 1. Nonhealing necrotizing infection ulcer abdominal wall. 2. Infected prosthetic mesh abdominal wall. 3. Recurrent ventral hernia. 4. Proteus mirabilis infection. 5. Diabetes mellitus. 6. Abdominal wall skin crease intertrigo. 7. s/p surgical preparation abdominal wall with excisional debridement skin, subcutaneous tissue, muscle, and fascia for necrotizing soft tissue infection (962 cm2) and removal of exposed infected mesh with fascial closure and repair of recurrent ventral hernia. Plan: Continue VAC. Continue abdominal wall binder. IV Meropenem for Proteus mirabilis, Enterococcus faecalis, Bacteroides thetaiotamicron, and Clostridium ramosum has been completed and the PICC line has been pulled. She has been discharged from the [facility] and is at home. Prealbumin from 05/03 was 8.1. She takes nutritional supplementation with protein to help the healing process. Continue PT for strengthening and ambulation. Followup 3 weeks. Discussed further operative debridement and skin grafting. She is interested in wound closure with skin grafting. Will schedule for next month. Will need another wound culture prior to the skin graft surgery. Continue Nystatin powder for the abdominal wall skin crease intertrigo.
[2017-09-25 10:14] VITALS: BP 136/56; PULSE 76; RESP 18; TEMP 35.6; BMI 103.2
--- NOTE | 2017-09-25 18:15 | PCM.WC.PN ---
Type of Wound Date of Service: 09/25/17 Chief Complaint: Nonhealing infected abdominal wall ulcer. History of Wound: Surgery 05/05/17 - Surgical preparation abdominal wall with excisional debridement skin, subcutaneous tissue, muscle, and fascia for necrotizing soft tissue infection (962 cm2) and removal of exposed infected mesh with fascial closure and repair of recurrent ventral hernia. Wound care - VAC. Operative culture - Proteus mirabilis, Enterococcus faecalis, Bacteroides thetaiotamicron, and Clostridium ramosum. She was placed on Meropenem IV and has finished them. The PICC line has been pulled and she has been discharged from the [facility]. Prealbumin from 05/03/17 was 8.1. She takes nutritional supplementation with protein to help the healing process. CT Abdomen/Pelvis from 05/04 showed a large abdominal wall ulcer. No intra-abdominal infection. Today she denies fever. Her appetite is good. She was having some abdominal wall skin crease intertrigo and she is using Nystatin powder for relief. Progress of Wound: Slightly improved. - Physical Exam Vital Signs Temp Pulse Resp BP 96.0 F L 76 18 136/56 H 09/25/17 10:14 09/25/17 10:14 09/25/17 10:14 09/25/17 10:14 Wound Measurements and Assessment WC - Nurse 1 - General Ulcer Measurement Start: 09/11/17 10:24 Freq: Status: Active Protocol: Activity Type Activity Date Activity User E-Sign Co-Sign Detail Recorded Client Recorded Date Recorded By Document 09/25/17 10:14 [id number] 09/25/17 10:19 09/25/17 10:14 Wound Center Nurse 1 [Ulcer Assessment] #1 Midline Abdomen (POST OP) -Combined with other wound No -Current Size (cm) - Length 0.1 -Current Size (cm) - Width 0.1 -Current Size (cm) - Depth 0.1 -Total Square Cm 0.01 -Photo Taken No -Epithelialization Large 67-100% -Tunneling No -Undermining/Tunneling No -Circular Undermining No -Classification - Thickness Full Thickness without Exposed Support Structure -Exudate Amt None Present (0 %) -Wound Margin Distinct, Outline Attached -Granulation Amt Large (67-100%) -Granulation Quality [place] -Slough/Fibrin Yes -Necrosis Amt None Present (0 %) -Structure Exposed None/Limited to Skin Breakdown -Texture (Tamia-wound Skin Appearance) Localized Edema Scarring -Moisture (Tamia-wound Skin Appearance Dry/Scaly ) -Color (Tamia-wound Skin Appearance) Erythema -Temperature (Tamia-wound Skin No Abnormality Appearance) (Pt Warm) -Tenderness on Palpation (Tamia-wound No Skin Appearance) -Ulcer Cleansing Rinsed/ Irrigated with Saline -Foul Odor after Cleansing No -Anesthetic Used 4% Lidocaine Solution [Edema Assessment] -Lower Limb Edema Present No - Nurse 2 - General Ulcer CM Notes Start: 09/11/17 10:24 Freq: Status: Active Protocol: Activity Type Activity Date Activity User E-Sign Co-Sign Detail Recorded Client Recorded Date Recorded By Document 09/25/17 11:02 [id number] 09/25/17 11:05 09/25/17 11:02 Wound Center Nurse 2 [Procedure/Treatment] #1 Midline Abdomen (POST OP) -Time 11:04 -Correct Patient Yes -Correct Side, Site, Position Yes -Correct Procedure Yes -Procedure Performed Yes -Type of Procedure Debridement -Clinical Debridement Selective -Post Debridement Size (cm) - Length 1.0 -Post Debridement Size (cm) - Width 1.0 -Post Debridement Size (cm) - Depth 0.1 -Total Square Cm 1.00 -Wound/Ulcer Outcome Not Healed -Ulcer Cleansing Rinsed/ Irrigated with Saline -Foul Odor after Cleansing No -Bioengineered Tissue No -Bleeding Controlled with Pressure -Treatment Response Procedure Tolerated Well [See Physician Procedure note for Specifics] Pain Scale: 0-10 Numeric [Pain] -Is Patient Pain Free? Yes Debridement Note Post-Debridement Measurements/Treatment - Nurse 2 - General Ulcer CM Notes Start: 09/11/17 10:24 Freq: Status: Active Protocol: Activity Type Activity Date Activity User E-Sign Co-Sign Detail Recorded Client Recorded Date Recorded By Document 09/11/17 11:29 [id number] 09/11/17 11:34 Document 09/25/17 11:02 [id number] 09/25/17 11:05 09/11/17 09/25/17 11:29 11:02 Wound Center Nurse 2 #1 Midline Abdomen (POST OP) -Time 11:04 -Correct Patient No Yes -Correct Side, Site, Position No Yes -Correct Procedure No Yes -Procedure Performed No Yes -Type of Procedure Debridement -Clinical Debridement Selective -Post Debridement Size (cm) - Length 1.0 -Post Debridement Size (cm) - Width 1.0 -Post Debridement Size (cm) - Depth 0.1 -Total Square Cm 1.00 -Wound/Ulcer Outcome Not Healed -Ulcer Cleansing Rinsed/ Irrigated with Saline -Foul Odor after Cleansing No -Bioengineered Tissue No -Bleeding Controlled with NA Pressure -Treatment Response Procedure Tolerated Well Pain Scale: 0-10 Numeric Is Patient Pain Free? Yes Yes Wound debrided: #1 Midline abdominal wall. Laterality: Not Applicable Wound Grade/Stage: 3. Type of Debridement: Selective debridement Anesthesia Used: 4% Lidocaine Solution Depth: - - superficial scabbing was debrided. Percentage of wound debrided: 100 Instrument Used: 3mm curette Tissue Removed: superficial scabbing was removed. Severity: Limited To Skin Breakdown - superficial scabbing was removed. Amount of bleeding with debridement: Mild Bleeding Controlled with: Pressure Patient tolerated procedure well Assessment/Plan Assessment: 1. Nonhealing necrotizing infection ulcer abdominal wall. 2. Infected prosthetic mesh abdominal wall. 3. Recurrent ventral hernia. 4. Proteus mirabilis infection. 5. Diabetes mellitus. 6. Abdominal wall skin crease intertrigo. 7. s/p surgical preparation abdominal wall with excisional debridement skin, subcutaneous tissue, muscle, and fascia for necrotizing soft tissue infection (962 cm2) and removal of exposed infected mesh with fascial closure and repair of recurrent ventral hernia. Plan: Continue VAC. Continue abdominal wall binder. IV Meropenem for Proteus mirabilis, Enterococcus faecalis, Bacteroides thetaiotamicron, and Clostridium ramosum has been completed and the PICC line has been pulled. She has been discharged from the [facility] and is at home. Prealbumin from 05/03 was 8.1. She takes nutritional supplementation with protein to help the healing process. Continue PT for strengthening and ambulation. Followup 3 weeks. Discussed further operative debridement and skin grafting. She is interested in wound closure with skin grafting. Will schedule for next month. Will need another wound culture prior to the skin graft surgery. Continue Nystatin powder for the abdominal wall skin crease intertrigo.
== END 2017-10-07 23:59 ==
LOC: WC 10:15
PROVIDERS: Family Provider Family Medicine; PCP Family Medicine; Visit Provider Surgery
DX: T85.79XA Infection and inflammatory reaction due to other internal prosthetic devices, implants and grafts, initial encounter (principal); Y82.8 Other medical devices associated with adverse incidents; B99.8 Other infectious disease; Y83.8 Other surgical procedures as the cause of abnormal reaction of the patient, or of later complication, without mention of misadventure at the time of the procedure
CPT/HCPCS: 97597; 99213; G0463

== ENCOUNTER 2017-10-23 09:30 | Outpatient (RCR) | payer MEDICARE, OTHER, SELFPAY ==
[2017-10-08 00:34] VITALS: BP 140/73; PULSE 76; RESP 18; TEMP 35.6; BMI 103.2
[2017-10-09 10:21] VITALS: BP 152/69; PULSE 91; RESP 18; TEMP 36.4; BMI 103.2
--- NOTE | 2017-10-09 17:43 | PCM.WC.PN ---
Type of Wound Date of Service: 10/09/17 Chief Complaint: Nonhealing infected abdominal wall ulcer with surgical wound closure 08/29/17. History of Wound: Surgery 08/29/17 - 1. Surgical preparation lower anterior abdominal wall with excisional debridement nonhealing infected diabetic ulcer and complex secondary wound closure with bilateral abdominal wall advancement flaps (832 cm2). 2. Repair recurrent ventral hernia with placement Strattice acellular dermal matrix graft (160 cm2). Wound care - Silver. Operative culture - Corynebacterium striatum. She was treated perioperatively with Bactrim and Diflucan. Progress of Wound: Improved. - Physical Exam Vital Signs Temp Pulse Resp BP 97.5 F L 91 18 152/69 H 10/09/17 10:21 10/09/17 10:21 10/09/17 10:21 10/09/17 10:21 Wound Measurements and Assessment WC - Nurse 1 - General Ulcer Measurement Start: 10/09/17 09:55 Freq: Status: Active Protocol: Activity Type Activity Date Activity User E-Sign Co-Sign Detail Recorded Client Recorded Date Recorded By Document 10/09/17 10:21 [id number] 10/09/17 10:23 10/09/17 10:21 Wound Center Nurse 1 [Ulcer Assessment] #1 Midline Abdomen (POST OP) -Combined with other wound No -Current Size (cm) - Length 1.3 -Current Size (cm) - Width 1.3 -Current Size (cm) - Depth 0.1 -Total Square Cm 1.69 -Photo Taken No -Epithelialization Small 1-33% -Tunneling No -Undermining/Tunneling No -Circular Undermining No -Exudate Amt Small (1-33%) -Exudate Type Serosanguineous -Wound Margin Flat & Intact -Granulation Amt None Present (0 %) -Slough/Fibrin Yes -Necrosis Amt Large (67-100%) -Necrotic Tissue Type Adherent Slough -Structure Exposed N/A -Texture (Tamia-wound Skin Appearance) Assessed Scarring -Moisture (Tamia-wound Skin Appearance Assessed ) Dry/Scaly -Color (Tamia-wound Skin Appearance) Assessed -Temperature (Tamia-wound Skin No Abnormality Appearance) (Pt Warm) -Tenderness on Palpation (Tamia-wound No Skin Appearance) -Ulcer Cleansing Rinsed/ Irrigated with Saline -Foul Odor after Cleansing No -Anesthetic Used 5% Lidocaine Gel [Edema Assessment] -Lower Limb Edema Present NA - Nurse 2 - General Ulcer CM Notes Start: 10/09/17 09:55 Freq: Status: Active Protocol: Activity Type Activity Date Activity User E-Sign Co-Sign Detail Recorded Client Recorded Date Recorded By Document 10/09/17 10:21 JF [id number] 10/09/17 10:23 JF 10/09/17 10:21 Wound Center Nurse 2 [Procedure/Treatment] #1 Midline Abdomen (POST OP) -Time 10:22 -Correct Patient Yes -Correct Side, Site, Position Yes -Correct Procedure Yes -Procedure Performed Yes -Type of Procedure Debridement -Clinical Debridement Subcutaneous -Post Debridement Size (cm) - Length 1.4 -Post Debridement Size (cm) - Width 1.3 -Post Debridement Size (cm) - Depth 0.5 -Total Square Cm 1.82 -Wound/Ulcer Outcome Not Healed -Ulcer Cleansing Rinsed/ Irrigated with Saline -Foul Odor after Cleansing No -Bioengineered Tissue No -Bleeding Controlled with Pressure -Treatment Response Procedure Tolerated Well Debridement Note Post-Debridement Measurements/Treatment - Nurse 2 - General Ulcer CM Notes Start: 10/09/17 09:55 Freq: Status: Active Protocol: Activity Type Activity Date Activity User E-Sign Co-Sign Detail Recorded Client Recorded Date Recorded By Document 10/09/17 10:21 JF [id number] 10/09/17 10:23 JF 10/09/17 10:21 Wound Center Nurse 2 #1 Midline Abdomen (POST OP) -Time 10:22 -Correct Patient Yes -Correct Side, Site, Position Yes -Correct Procedure Yes -Procedure Performed Yes -Type of Procedure Debridement -Clinical Debridement Subcutaneous -Post Debridement Size (cm) - Length 1.4 -Post Debridement Size (cm) - Width 1.3 -Post Debridement Size (cm) - Depth 0.5 -Total Square Cm 1.82 -Wound/Ulcer Outcome Not Healed -Ulcer Cleansing Rinsed/ Irrigated with Saline -Foul Odor after Cleansing No -Bioengineered Tissue No -Bleeding Controlled with Pressure -Treatment Response Procedure Tolerated Well Wound debrided: #1 Midline abdominal wall. Laterality: Not Applicable Wound Grade/Stage: 3. Type of Debridement: Excisional debridement Anesthesia Used: 4% Lidocaine Solution Depth: Down to and including healthy tissue, in the subcutaneous layer Percentage of wound debrided: 100 Instrument Used: 5mm curette Tissue Removed: subcutaneous tissue. Severity: Fat Layer Exposed Amount of bleeding with debridement: Mild Bleeding Controlled with: Pressure Patient tolerated procedure well - A wound culture was obtained today. Assessment/Plan Assessment: 1. Nonhealing infected diabetic ulcer lower anterior abdominal wall. 2. Diabetes mellitus. 3. Recurrent ventral hernia. 4. s/p surgical preparation lower anterior abdominal wall with excisional debridement nonhealing infected diabetic ulcer and complex secondary wound closure with bilateral abdominal wall advancement flaps (832 cm2) and repair recurrent ventral hernia with placement Strattice acellular dermal matrix graft (160 cm2). Plan: Continue Silver dressing changes. Continue abdominal wall binder. A wound culture was done today. A positive culture will necessitate antibiotic therapy. She takes nutritional supplementation with protein to help the healing process. Followup 2 weeks.
[2017-10-23 09:00] VITALS: BP 137/90; PULSE 85; RESP 18; TEMP 35.7; BMI 103.2
--- NOTE | 2017-10-23 23:10 | PCM.WC.PN ---
Type of Wound Date of Service: 10/23/17 Chief Complaint: Nonhealing abdominal wall ulcer with surgical wound closure 08/29/17. History of Wound: Surgery 08/29/17 - 1. Surgical preparation lower anterior abdominal wall with excisional debridement nonhealing infected diabetic ulcer and complex secondary wound closure with bilateral abdominal wall advancement flaps (832 cm2). 2. Repair recurrent ventral hernia with placement Strattice acellular dermal matrix graft (160 cm2). Wound care - Silver. Operative culture - Corynebacterium striatum. She was treated perioperatively with Bactrim and Diflucan and has finished them. Another wound culture was done on 10/10/15 was negative. Progress of Wound: Slightly improved. - Physical Exam Vital Signs Temp Pulse Resp BP 96.2 F L 85 18 137/90 H 10/23/17 09:00 10/23/17 09:00 10/23/17 09:00 10/23/17 09:00 Wound Measurements and Assessment WC - Nurse 1 - General Ulcer Measurement Start: 10/09/17 09:55 Freq: Status: Active Protocol: Activity Type Activity Date Activity User E-Sign Co-Sign Detail Recorded Client Recorded Date Recorded By Document 10/23/17 09:00 JF [id number] 10/23/17 09:03 JEANINE 10/23/17 09:00 Wound Center Nurse 1 [Ulcer Assessment] #1 Midline Abdomen (POST OP) -Combined with other wound No -Current Size (cm) - Length 0.7 -Current Size (cm) - Width 1.1 -Current Size (cm) - Depth 0.2 -Total Square Cm 0.77 -Photo Taken No -Epithelialization None Present -Tunneling No -Undermining/Tunneling No -Circular Undermining No -Exudate Amt Small (1-33%) -Exudate Type Serosanguineous -Wound Margin Flat & Intact -Granulation Amt None Present (0 %) -Slough/Fibrin Yes -Necrosis Amt Large (67-100%) -Necrotic Tissue Type Adherent Slough -Structure Exposed N/A -Texture (Tamia-wound Skin Appearance) Assessed Scarring -Moisture (Tamia-wound Skin Appearance Assessed ) Dry/Scaly -Color (Tamia-wound Skin Appearance) Assessed -Temperature (Tamia-wound Skin No Abnormality Appearance) (Pt Warm) -Ulcer Cleansing Rinsed/ Irrigated with Saline -Foul Odor after Cleansing No -Anesthetic Used 4% Lidocaine Solution - Nurse 2 - General Ulcer CM Notes Start: 10/09/17 09:55 Freq: Status: Active Protocol: Activity Type Activity Date Activity User E-Sign Co-Sign Detail Recorded Client Recorded Date Recorded By Document 10/23/17 09:10 [id number] 10/23/17 09:12 10/23/17 09:10 Wound Center Nurse 2 [Procedure/Treatment] -Time 09:11 -Correct Patient Yes -Correct Side, Site, Position Yes -Correct Procedure Yes -Procedure Performed Yes -Type of Procedure Debridement -Clinical Debridement Subcutaneous -Post Debridement Size (cm) - Length 0.8 -Post Debridement Size (cm) - Width 1.1 -Post Debridement Size (cm) - Depth 0.2 -Total Square Cm 0.88 -Wound/Ulcer Outcome Not Healed -Ulcer Cleansing Rinsed/ Irrigated with Saline -Foul Odor after Cleansing No -Bioengineered Tissue No -Bleeding Controlled with Pressure -Treatment Response Procedure Tolerated Well [See Physician Procedure note for Specifics] Pain Scale: 0-10 Numeric [Pain] -Is Patient Pain Free? Yes Debridement Note Post-Debridement Measurements/Treatment - Nurse 2 - General Ulcer CM Notes Start: 10/09/17 09:55 Freq: Status: Active Protocol: Activity Type Activity Date Activity User E-Sign Co-Sign Detail Recorded Client Recorded Date Recorded By Document 10/09/17 10:21 [id number] 10/09/17 10:23 Document 10/23/17 09:10 [id number] 10/23/17 09:12 10/09/17 10/23/17 10:21 09:10 Pain Scale: 0-10 Numeric Is Patient Pain Free? Yes Wound Center Nurse 2 #1 Midline Abdomen (POST OP) -Time 10:22 09:11 -Correct Patient Yes Yes -Correct Side, Site, Position Yes Yes -Correct Procedure Yes Yes -Procedure Performed Yes Yes -Type of Procedure Debridement Debridement -Clinical Debridement Subcutaneous Subcutaneous -Post Debridement Size (cm) - Length 1.4 0.8 -Post Debridement Size (cm) - Width 1.3 1.1 -Post Debridement Size (cm) - Depth 0.5 0.2 -Total Square Cm 1.82 0.88 -Wound/Ulcer Outcome Not Healed Not Healed -Ulcer Cleansing Rinsed/ Rinsed/ Irrigated with Irrigated with Saline Saline -Foul Odor after Cleansing No No -Bioengineered Tissue No No -Bleeding Controlled with Pressure Pressure -Treatment Response Procedure Procedure Tolerated Well Tolerated Well Wound debrided: #1 Midline abdominal wall. Laterality: Not Applicable Wound Grade/Stage: 3. Type of Debridement: Excisional debridement Anesthesia Used: 4% Lidocaine Solution Depth: Down to and including healthy tissue, in the subcutaneous layer Percentage of wound debrided: 100 Instrument Used: 5mm curette Tissue Removed: subcutaneous tissue. Severity: Fat Layer Exposed Amount of bleeding with debridement: Mild Bleeding Controlled with: Pressure Patient tolerated procedure well Assessment/Plan Assessment: 1. Nonhealing infected diabetic ulcer lower anterior abdominal wall. 2. Diabetes mellitus. 3. Recurrent ventral hernia. 4. s/p surgical preparation lower anterior abdominal wall with excisional debridement nonhealing infected diabetic ulcer and complex secondary wound closure with bilateral abdominal wall advancement flaps (832 cm2) and repair recurrent ventral hernia with placement Strattice acellular dermal matrix graft (160 cm2). Plan: Change the Silver to Santyl dressing changes. Continue abdominal wall binder. A wound culture done on 10/10/15 was negative. She takes nutritional supplementation with protein to help the healing process. Followup 2 weeks.
== END 2017-11-06 23:59 ==
LOC: WC 09:30
PROVIDERS: Family Provider Family Medicine; PCP Family Medicine; Visit Provider Surgery
DX: E11.622 Type 2 diabetes mellitus with other skin ulcer (principal); L98.492 Non-pressure chronic ulcer of skin of other sites with fat layer exposed; K43.2 Incisional hernia without obstruction or gangrene
CPT/HCPCS: 11042; 87070; 87075; 87205

== ENCOUNTER 2017-11-13 08:46 | Outpatient (RCR) | payer MEDICARE, OTHER, SELFPAY ==
[2017-11-07 00:31] VITALS: BP 140/73; PULSE 85; RESP 18; TEMP 35.7; BMI 103.2
[2017-11-13 09:08] VITALS: BP 143/68; PULSE 94; RESP 18; TEMP 36.3; BMI 103.2
--- NOTE | 2017-11-13 21:45 | PCM.WC.PN ---
Type of Wound Date of Service: 11/13/17 Chief Complaint: Nonhealing abdominal wall ulcer with surgical wound closure 08/29/17. History of Wound: Surgery 08/29/17 - 1. Surgical preparation lower anterior abdominal wall with excisional debridement nonhealing infected diabetic ulcer and complex secondary wound closure with bilateral abdominal wall advancement flaps (832 cm2). 2. Repair recurrent ventral hernia with placement Strattice acellular dermal matrix graft (160 cm2). Wound care - Santyl. Operative culture - Corynebacterium striatum. She was treated perioperatively with Bactrim and Diflucan and has finished them. Another wound culture was done on 10/10/15 was negative. Progress of Wound: Improved. - Physical Exam Vital Signs Temp Pulse Resp BP 97.3 F L 94 18 143/68 H 11/13/17 09:08 11/13/17 09:08 11/13/17 09:08 11/13/17 09:08 Wound Measurements and Assessment WC - Nurse 1 - General Ulcer Measurement Start: 11/13/17 09:08 Freq: Status: Active Protocol: Activity Type Activity Date Activity User E-Sign Co-Sign Detail Recorded Client Recorded Date Recorded By Document 11/13/17 09:08 [id number] 11/13/17 09:10 TM 11/13/17 09:08 Wound Center Nurse 1 [Ulcer Assessment] #1 Midline Abdomen (POST OP) -Combined with other wound No -Current Size (cm) - Length 0.3 -Current Size (cm) - Width 0.5 -Current Size (cm) - Depth 0.1 -Total Square Cm 0.15 -Date of Last Picture (Recall this 11/13/17 field) -Photo Taken Yes -Epithelialization Small 1-33% -Tunneling No -Undermining/Tunneling No -Circular Undermining No -Classification - Thickness Full Thickness without Exposed Support Structure -Exudate Amt Small (1-33%) -Exudate Type Serous -Wound Margin Distinct, Outline Attached -Granulation Amt Small (1-33%) -Granulation Quality [place] -Slough/Fibrin Yes -Necrosis Amt Medium (34-66%) -Necrotic Tissue Type Adherent Slough -Structure Exposed Fascia Fat Layer Exposed -Texture (Tamia-wound Skin Appearance) Scarring -Moisture (Tamia-wound Skin Appearance No Abnormality ) -Color (Tamia-wound Skin Appearance) No Abnormality -Temperature (Tamia-wound Skin No Abnormality Appearance) (Pt Warm) -Tenderness on Palpation (Tamia-wound Yes Skin Appearance) -Ulcer Cleansing Rinsed/ Irrigated with Saline -Foul Odor after Cleansing No -Anesthetic Used 5% Lidocaine Gel [Edema Assessment] -Lower Limb Edema Present No WC - Nurse 2 - General Ulcer CM Notes Start: 11/13/17 09:08 Freq: Status: Active Protocol: Activity Type Activity Date Activity User E-Sign Co-Sign Detail Recorded Client Recorded Date Recorded By Document 11/13/17 09:18 [id number] 11/13/17 09:20 11/13/17 09:18 Wound Center Nurse 2 [Procedure/Treatment] #1 Midline Abdomen (POST OP) -Time 09:20 -Correct Patient Yes -Correct Side, Site, Position Yes -Correct Procedure Yes -Procedure Performed Yes -Type of Procedure Debridement -Clinical Debridement Subcutaneous -Post Debridement Size (cm) - Length 0.4 -Post Debridement Size (cm) - Width 0.5 -Post Debridement Size (cm) - Depth 0.1 -Total Square Cm 0.20 -Wound/Ulcer Outcome Not Healed -Ulcer Cleansing Rinsed/ Irrigated with Saline -Foul Odor after Cleansing No -Bioengineered Tissue No -Bleeding Controlled with Pressure -Treatment Response Procedure Tolerated Well [See Physician Procedure note for Specifics] Pain Scale: 0-10 Numeric [Pain] -Is Patient Pain Free? Yes Debridement Note Post-Debridement Measurements/Treatment - Nurse 2 - General Ulcer CM Notes Start: 11/13/17 09:08 Freq: Status: Active Protocol: Activity Type Activity Date Activity User E-Sign Co-Sign Detail Recorded Client Recorded Date Recorded By Document 11/13/17 09:18 [id number] 11/13/17 09:20 11/13/17 09:18 Wound Center Nurse 2 #1 Midline Abdomen (POST OP) -Time 09:20 -Correct Patient Yes -Correct Side, Site, Position Yes -Correct Procedure Yes -Procedure Performed Yes -Type of Procedure Debridement -Clinical Debridement Subcutaneous -Post Debridement Size (cm) - Length 0.4 -Post Debridement Size (cm) - Width 0.5 -Post Debridement Size (cm) - Depth 0.1 -Total Square Cm 0.20 -Wound/Ulcer Outcome Not Healed -Ulcer Cleansing Rinsed/ Irrigated with Saline -Foul Odor after Cleansing No -Bioengineered Tissue No -Bleeding Controlled with Pressure -Treatment Response Procedure Tolerated Well Pain Scale: 0-10 Numeric Is Patient Pain Free? Yes Wound debrided: #1 Midline abdominal wall. Laterality: Not Applicable Wound Grade/Stage: 3. Type of Debridement: Excisional debridement Anesthesia Used: 4% Lidocaine Solution Depth: Down to and including healthy tissue, in the subcutaneous layer Percentage of wound debrided: 100 Instrument Used: 5mm curette Tissue Removed: subcutaneous tissue. Severity: Fat Layer Exposed Amount of bleeding with debridement: Mild Bleeding Controlled with: Pressure Patient tolerated procedure well Assessment/Plan Assessment: 1. Nonhealing infected diabetic ulcer lower anterior abdominal wall. 2. Diabetes mellitus. 3. Recurrent ventral hernia. 4. s/p surgical preparation lower anterior abdominal wall with excisional debridement nonhealing infected diabetic ulcer and complex secondary wound closure with bilateral abdominal wall advancement flaps (832 cm2) and repair recurrent ventral hernia with placement Strattice acellular dermal matrix graft (160 cm2). Plan: Continue Santyl dressing changes. Continue abdominal wall binder. A wound culture done on 10/10/15 was negative. She takes nutritional supplementation with protein to help the healing process. Followup 3 weeks.
== END 2017-12-07 23:59 ==
LOC: WC 08:46
PROVIDERS: Family Provider Family Medicine; PCP Family Medicine; Visit Provider Surgery
DX: E11.622 Type 2 diabetes mellitus with other skin ulcer (principal); L98.492 Non-pressure chronic ulcer of skin of other sites with fat layer exposed; T85.79XA Infection and inflammatory reaction due to other internal prosthetic devices, implants and grafts, initial encounter; L08.9 Local infection of the skin and subcutaneous tissue, unspecified; K43.2 Incisional hernia without obstruction or gangrene; B96.4 Proteus (mirabilis) (morganii) as the cause of diseases classified elsewhere; L30.4 Erythema intertrigo; Z98.890 Other specified postprocedural states; Y82.8 Other medical devices associated with adverse incidents; Y83.8 Other surgical procedures as the cause of abnormal reaction of the patient, or of later complication, without mention of misadventure at the time of the procedure
CPT/HCPCS: 11042

== ENCOUNTER 2017-12-25 08:30 | Outpatient (RCR) | payer MEDICARE, OTHER, SELFPAY ==
[2017-12-08 00:32] VITALS: BP 140/73; PULSE 94; RESP 18; TEMP 36.3; BMI 103.2
[2017-12-25 09:33] VITALS: BP 135/77; PULSE 73; RESP 16; TEMP 36.3; BMI 103.2
--- NOTE | 2017-12-25 19:56 | PCM.WC.PN ---
Type of Wound Date of Service: 12/25/17 Chief Complaint: Nonhealing abdominal wall ulcer with surgical wound closure 08/29/17. History of Wound: Surgery 08/29/17 - 1. Surgical preparation lower anterior abdominal wall with excisional debridement nonhealing infected diabetic ulcer and complex secondary wound closure with bilateral abdominal wall advancement flaps (832 cm2). 2. Repair recurrent ventral hernia with placement Strattice acellular dermal matrix graft (160 cm2). Wound care - Santyl. Operative culture - Corynebacterium striatum. She was treated perioperatively with Bactrim and Diflucan and has finished them. Another wound culture was done on 10/10/15 was negative. Progress of Wound: Healed. - Physical Exam Vital Signs Temp Pulse Resp BP 97.3 F L 73 16 135/77 H 12/25/17 09:33 12/25/17 09:33 12/25/17 09:33 12/25/17 09:33 General: Alert, Oriented x3 HEENT: PERRLA, EOMI Oral: Moist Mucosa Neck: Supple Lungs: Clear to auscultation Cardiovascular: Regular rate, Regular Rhythm Abdomen: Soft, Non-Distended, No hernias noted, - - Incision intact. Skin: Incision - abdominal incision healed. Wound Measurements and Assessment WC - Nurse 1 - General Ulcer Measurement Start: 12/25/17 09:20 Freq: Status: Active Protocol: Activity Type Activity Date Activity User E-Sign Co-Sign Detail Recorded Client Recorded Date Recorded By Document 12/25/17 09:33 [facility] [id number] 12/25/17 09:37 [facility] 12/25/17 09:33 Wound Center Nurse 1 [Ulcer Assessment] #1 Midline Abdomen (POST OP) -Combined with other wound No -Current Size (cm) - Length 0 -Current Size (cm) - Width 0 -Current Size (cm) - Depth 0 -Total Square Cm 0 -Date of Last Picture (Recall this 12/25/17 field) -Photo Taken Yes -Epithelialization Large 67-100% WC - Nurse 2 - General Ulcer CM Notes Start: 12/25/17 09:20 Freq: Status: Active Protocol: Activity Type Activity Date Activity User E-Sign Co-Sign Detail Recorded Client Recorded Date Recorded By Document 12/25/17 09:52 [id number] 12/25/17 09:54 12/25/17 09:52 Wound Center Nurse 2 [Procedure/Treatment] -Post Debridement Size (cm) - Length 0 -Post Debridement Size (cm) - Width 0 -Post Debridement Size (cm) - Depth 0 -Total Square Cm 0 -Wound/Ulcer Outcome Healed- Epithelialized [See Physician Procedure note for Specifics] Pain Scale: 0-10 Numeric [Pain] -Is Patient Pain Free? Yes Neurological: Cranial nerves II-XII grossly intact Psych/Mental Status: Normal Affect, Appropriate Debridement Note Post-Debridement Measurements/Treatment WC - Nurse 2 - General Ulcer CM Notes Start: 12/25/17 09:20 Freq: Status: Active Protocol: Activity Type Activity Date Activity User E-Sign Co-Sign Detail Recorded Client Recorded Date Recorded By Document 12/25/17 09:52 [id number] 12/25/17 09:54 12/25/17 09:52 Wound Center Nurse 2 #1 Midline Abdomen (POST OP) -Post Debridement Size (cm) - Length 0 -Post Debridement Size (cm) - Width 0 -Post Debridement Size (cm) - Depth 0 -Total Square Cm 0 -Wound/Ulcer Outcome Healed- Epithelialized Pain Scale: 0-10 Numeric Is Patient Pain Free? Yes Wound debrided: #1 Midline abdominal wall. Laterality: Not Applicable Wound Grade/Stage: 3. No debridement was completed today - The ulcer has healed. Assessment/Plan Assessment: 1. Nonhealing infected diabetic ulcer lower anterior abdominal wall. 2. Diabetes mellitus. 3. Recurrent ventral hernia. 4. s/p surgical preparation lower anterior abdominal wall with excisional debridement nonhealing infected diabetic ulcer and complex secondary wound closure with bilateral abdominal wall advancement flaps (832 cm2) and repair recurrent ventral hernia with placement Strattice acellular dermal matrix graft (160 cm2). Plan: The ulcer has healed. Continue abdominal wall binder for 3 more months. A wound culture done on 10/10/15 was negative. She takes nutritional supplementation with protein to help the healing process. Followup on an as needed basis.
--- NOTE | 2017-12-27 00:36 | PN.PCM_ITS ---
Type of Wound Date of Service: 12/25/17 Chief Complaint: Nonhealing abdominal wall ulcer with surgical wound closure . History of Wound: Surgery 08/29/17 - 1. Surgical preparation lower anterior abdominal wall with excisional debridement nonhealing infected diabetic ulcer and complex secondary wound closure with bilateral abdominal wall advancement flaps (832 cm2). 2. Repair recurrent ventral hernia with placement Strattice acellular dermal matrix graft (160 cm2). Wound care - Santyl. Operative culture - Corynebacterium striatum. She was treated perioperatively with Bactrim and Diflucan and has finished them. Another wound culture was done on was negative. Progress of Wound: Healed. - Physical Exam Vital Signs Temp Pulse Resp BP 97.3 F L 73 16 135/77 H 12/25/17 09:33 12/25/17 09:33 12/25/17 09:33 12/25/17 09:33 General: Alert, Oriented x3 HEENT: PERRLA, EOMI Oral: Moist Mucosa Neck: Supple Lungs: Clear to auscultation Cardiovascular: Regular rate, Regular Rhythm Abdomen: Soft, Non-Distended, No hernias noted, - - Incision intact. Skin: Incision - abdominal incision healed. Wound Measurements and Assessment WC - Nurse 1 - General Ulcer Measurement Start: 12/25/17 09:20 Freq: Status: Active Protocol: Activity Type Activity Date Activity User E-Sign Co-Sign Detail Recorded Client Recorded Date Recorded By Document 12/25/17 09:33 [facility] [id number] 12/25/17 09:37 [facility] 12/25/17 09:33 Wound Center Nurse 1 [Ulcer Assessment] #1 Midline Abdomen (POST OP) -Combined with other wound No -Current Size (cm) - Length 0 -Current Size (cm) - Width 0 -Current Size (cm) - Depth 0 -Total Square Cm 0 -Date of Last Picture (Recall this 12/25/17 field) -Photo Taken Yes -Epithelialization Large 67-100% WC - Nurse 2 - General Ulcer CM Notes Start: 12/25/17 09:20 Freq: Status: Active Protocol: Activity Type Activity Date Activity User E-Sign Co-Sign Detail Recorded Client Recorded Date Recorded By Document 12/25/17 09:52 [id number] 12/25/17 09:54 12/25/17 09:52 Wound Center Nurse 2 [Procedure/Treatment] -Post Debridement Size (cm) - Length 0 -Post Debridement Size (cm) - Width 0 -Post Debridement Size (cm) - Depth 0 -Total Square Cm 0 -Wound/Ulcer Outcome Healed- Epithelialized [See Physician Procedure note for Specifics] Pain Scale: 0-10 Numeric [Pain] -Is Patient Pain Free? Yes Neurological: Cranial nerves II-XII grossly intact Psych/Mental Status: Normal Affect, Appropriate Debridement Note Post-Debridement Measurements/Treatment WC - Nurse 2 - General Ulcer CM Notes Start: 12/25/17 09:20 Freq: Status: Active Protocol: Activity Type Activity Date Activity User E-Sign Co-Sign Detail Recorded Client Recorded Date Recorded By Document 12/25/17 09:52 [id number] 12/25/17 09:54 12/25/17 09:52 Wound Center Nurse 2 #1 Midline Abdomen (POST OP) -Post Debridement Size (cm) - Length 0 -Post Debridement Size (cm) - Width 0 -Post Debridement Size (cm) - Depth 0 -Total Square Cm 0 -Wound/Ulcer Outcome Healed- Epithelialized Pain Scale: 0-10 Numeric Is Patient Pain Free? Yes Wound debrided: #1 Midline abdominal wall. Laterality: Not Applicable Wound Grade/Stage: 3. No debridement was completed today - The ulcer has healed. Assessment/Plan Assessment: 1. Nonhealing infected diabetic ulcer lower anterior abdominal wall. 2. Diabetes mellitus. 3. Recurrent ventral hernia. 4. s/p surgical preparation lower anterior abdominal wall with excisional debridement nonhealing infected diabetic ulcer and complex secondary wound closure with bilateral abdominal wall advancement flaps (832 cm2) and repair recurrent ventral hernia with placement Strattice acellular dermal matrix graft (160 cm2). Plan: The ulcer has healed. Continue abdominal wall binder for 3 more months. A wound culture done on 10/10/15 was negative. She takes nutritional supplementation with protein to help the healing process. Followup on an as needed basis.
== END 2018-01-06 23:59 ==
LOC: WC 08:30
PROVIDERS: Family Provider Family Medicine; PCP Family Medicine; Visit Provider Surgery
DX: Z09 Encounter for follow-up examination after completed treatment for conditions other than malignant neoplasm (principal); E11.9 Type 2 diabetes mellitus without complications; K43.2 Incisional hernia without obstruction or gangrene
CPT/HCPCS: 99212; G0463